=== PATIENT | female | born 1945 | race Caucasian/White ===

== ENCOUNTER → 2023-08-23 18:28 | Outpatient (REF) | payer OTHER, SELFPAY | LOC: PAVMRI 18:28 | PROVIDERS: ATTENDING PHYSICIAN Psychiatry & Neurology Neurology; FAMILY PHYSICIAN Internal Medicine | DX: M54.12 Radiculopathy, cervical region (principal); M54.2 Cervicalgia | CPT/HCPCS: 72141 ==

== ENCOUNTER 2024-01-05 15:21 | Emergency (ER) | payer OTHER, SELFPAY ==
[2024-01-05 15:31] VITALS: BP 164/86
[2024-01-05 16:14] LABS: Urine Albumin Negative (Neg - Trace); Urine Bilirubin Negative (Negative); Urine Character Clear (Clear); Urine Color Yellow; Urine Glucose Negative (Negative); Urine Ketone Negative (Negative); Urine Leukocyte Negative (Negative); Urine Nitrite Negative (Negative); Urine Occult Blood Negative (Negative); Urine Specific Gravity 1.005 (<1.030); Urine Urobilinogen Negative (Neg - 1+)
--- NOTE | 2024-01-05 17:13 | ED.GENMED ---
History of Present Illness
General
Chief Complaint: Malaise
Source: patient
Exam Limitations: none
Time Seen by Provider: 01/05/24 16:37
Nursing documentation reviewed up to this point in time: agreed with
History of Present Illness
History of Present Illness:
78-year-old female presents emergency room due to dizziness for the past 2 weeks. She was having dental problems, and was placed on azithromycin and Decadron by her guideman. She then developed a urinary tract infection and was treated with
Cipro. After being on the Decadron, she did have elevated white blood cells on her outpatient labs per the patient. She ambulates with a cane. [place] the beach [place] and was concerned prior to going.
Past History
Past History
ED Past Medical History: HTN, Hypercholesterolemia, Other (Arthritis , headaches, difficulty with balance, neck pain) and Other (Diverticulosis, proctitis, internal hemorrhoids); Negative CAD, Cancer or COPD
ED Past Surgical History: Gynecological (D&C ) and Other (Left eyelid surgery)
Patient has exhibited threatening behavior?: No
PSI?: No
Social History
Tobacco: Non-smoker
Alcohol: None
Drug: None
Personal:
Living: alone
Employment: Retired
Family History
Family History: Other (Uncontributory)
Review of Systems
Review of Systems
Allergies reviewed?: Yes
All Other Systems: Not applicable
Constitutional: Reports no symptoms
EENT: Reports no symptoms
Respiratory: Reports no symptoms
Cardiac: Reports no symptoms
ABD/GI: Reports no symptoms
: Reports no symptoms
Musculoskeletal: Reports no symptoms
Skin: Reports no symptoms
Neurological: Reports dizzy
Endocrine: Reports no symptoms
Hematologic/Lymphatic: Reports no symptoms
Psychiatric: Reports no symptoms
Phy Exam
Physical Exam
Physical Exam:
Physical Exam
General: no apparent distress, not acutely ill
Neck: supple. no meningeal signs. normal posterior pharynx
Heart: s1/s2 regular rate and rhythm, no murmur. equal radial
pulses.
HEENT: Pupils equal round reactive to light, EOMI
Lungs: no acute respiratory distress. clear bilaterally
Abdomen: normal bowel sounds. not tender. no CVAT
Neuro: alert and oriented. no focal neurological deficits cranial nerves II through XII intact
Skin: no rash
Psychiatric: well kept. interactive and cooperative
Extremities: no edema. no calf tenderness. negative homans. good distal pulses
Course
Orders/Labs/Results
Orders:
Orders
01/05/24 16:07
Urinalysis Reflex To Culture Urgent
Date Specimen was Collected: 01/05/24
Time Specimen was Collected: 15:34
01/05/24 17:06
Electrocardiogram (*1) Urgent
Reason for Study: Vertigo / Dizzy
CT Head W/o Iv Contrast Urgent
Comment:
Reason For Exam: dizziness 2 weeks
EKG- Treatment ONCE
01/05/24 17:15
Complete Blood Count/With Diff Urgent
Comprehensive Metabolic Panel Urgent
01/05/24 19:48
Ondansetron Orally Disint [Zofran Odt (Orally Disintegrating)] 4 mg .ROUTE .[facility]
01/05/24 19:49
Ondansetron Orally Disint [Zofran Odt (Orally Disintegrating)] 4 mg PO NOW STA
Abnormal Lab Results
01/05/24
17:15
RBC 4.01 L 10^6/uL
(4.20-5.40)
Hct 34.1 L %
(37.0-47.0)
Absolute Monos (auto) 0.7 H 10^3/uL
(0.1-0.6)
Sodium 131 L mmol/L
(135-145)
Creatinine 0.5 L mg/dL
(0.6-1.0)
01/05/24 17:15
01/05/24 17:15
Vital Signs
Initial and Last Documented VS:
Initial Vital Signs
Temp Pulse Resp BP Pulse Ox
97.9 F 87 16 164/86 95
01/05/24 15:31 01/05/24 15:31 01/05/24 15:31 01/05/24 15:31 01/05/24 15:31
Last Documented Vital Signs
Temp Pulse Resp BP Pulse Ox
97.8 F 78 16 157/82 100
01/05/24 19:37 01/05/24 19:37 01/05/24 19:37 01/05/24 19:37 01/05/24 19:37
MDM/Problems Addressed
Differential Diagnosis Includes:
CVA, vertigo, dysrhythmia
MDM/Problems Addressed:
78-year-old female with dizziness, headache. Recent treatment for UTI with Cipro. Normal neurologic exam and normal head CT. Stable for discharge.
Chronic conditions affecting care: HTN and Other (Migraines)
Acute Exacerbation and/or Progression of Chronic Illness: HTN
*Radiology
Radiology exam reviewed: radiology read reviewed (CT head no acute findings)
*Pulse Oximetry
Patient hypoxic: no
*EKG
Interpreted by ED Provider?: Yes
EKG Intrepretation Date: 01/05/24
EKG Intrepretation Time: 17:16
Interpretation: normal
Comparison EKG: no comparison EKG present
Heart Rate: 70
Rate: normal
Rhythm: sinus
[place]: normal axis
Interval: normal interval
QRS Pattern: normal QRS
Ischemia: no ischemia
*Software Engineer Sales Interpretation
Rate: normal
Interpretation: normal
Heart Rate: 70
Rhythm: sinus
*Critical Care Note
Total Time (30-74mins, 75-104mins- exclusive of procedures): Not Applicable
Patient Management
Social determinants of health affecting care: Living situation
Escalation/DeEscalation of care consider admission/obs:
Admit not indicated
ED Attending Note
-
Portions of this chart may have been created with voice recognition software.� Occasional wrong word or��sound alike� substitutions may have occurred due to the inherent limitations of voice recognition software.
Discharge Plan
Departure
Patient Disposition: Home (Routine Discharge)
Date of Disposition: 01/05/24
Time of Disposition: 20:44
Patient with high blood pressure during this ER visit?: Yes
Condition: Good
Discharge Problem:
Dizziness
Instructions: Generalized Weakness (DC), BLOOD PRESSURE
Prescriptions:
No Action
famotidine 40 MG tablet
40 mg PO HS
gabapentin 100 MG capsule
100 mg PO HS
lisinopril 5 MG tablet
5 mg PO DAILY
cranberry extract
1 cap PO DAILY
lansoprazole 15 mg Capsule,Delayed Release(Dr/Ec)
15 mg PO DAILY
ascorbic acid (vitamin C) [Vitamin C] 1,000 mg Tablet
1,000 mg PO DAILY
cholecalciferol (vitamin D3) [Vitamin D3] 50 mcg (2,000 unit) Tablet
50 mcg PO DAILY
dicyclomine 20 mg tablet
20 mg PO QID PRN (Reason: abdominal pain) Qty: 20 0RF
Referrals:
Bailey Salmeron MD [Family Provider] - Call in 1-3 days for appt
Interventions
Interventions:
*Risk Screen - Suicide Last Done: 01/05/24 17:09
*General Assessment Last Done: 01/05/24 17:09
*Neglect/Abuse Screening Last Done: 01/05/24 17:09
ED- Fall Risk Assessment Last Done: 01/05/24 21:05
*ED COVID-19 Vaccine History Last Done: 01/05/24 17:09
*Nursing Disposition Last Done: 01/05/24 21:05
Discharge Date and Time
Discharge Date/Time: 01/05/24 21:06
Print Language: CUBAN
[2024-01-05 17:22] LABS: % Basophils 0.6 % (0-2); % Eosinophils 0.5 % (0-6); % Immature Granulocytes 0.2 % (0-0.5); % Monocytes 8.5 % (1.7-9.3); % Neutrophils 62.2 % (42.2-75.2); Absolute Basophils 0.1 10^3/uL (0-0.2); Absolute Lymphocytes 2.3 10^3/uL (1.2-3.4); Absolute Monocytes 0.7 10^3/uL (0.1-0.6); Absolute Neutrophils 5.1 10^3/uL (1.4-6.5); Hematocrit 34.1 % (37.0-47.0); Hemoglobin 12.2 g/dL (12.0-16.0); Mean Corp Hgb Conc. 35.8 g/dL (33.0-37.0); Mean Corpuscular Hgb 30.4 pg (27.0-31.0); Mean Platelet Volume 8.4 fL (7.4-10.4); Nucleated Red Blood Cells % 0 %; Platelet Count 356 10^3/uL (130-400); Red Blood Cell Count 4.01 10^6/uL (4.20-5.40); Red Cell Dist. Width 13.2 % (11.5-14.5); White Blood Cell Count 8.1 10^3/uL (4.8-10.8)
[2024-01-05 17:40] LABS: ALT (SGPT) 15 U/L (0-35); AST (SGOT) 26 U/L (14-36); Albumin 4.4 g/dl (3.5-5.0); Alkaline Phosphatase 80 U/L (38-126); Blood Urea Nitrogen 10 mg/dl (7-17); Calcium 9.5 mg/dl (8.4-10.2); Carbon Dioxide 24 mmol/L (22-30); Chloride 100 mmol/L (98-107); Glucose 79 mg/dl (70-99); Potassium 3.7 mmol/L (3.5-5.1); Sodium 131 mmol/L (135-145); Total Bilirubin 0.5 mg/dl (0.2-1.3); Total Protein 6.7 g/dl (6.3-8.2); eGFR > 60.00
[2024-01-05 19:37] VITALS: BP 157/82
[2024-01-05 19:42] VITALS: BMI 30.4
[2024-01-05] MEDS: ZOFRAN ODT (ORALLY DISINTEGRATING) 4 MG PO (19:49)
== END 2024-01-05 21:06 | disposition home or self-care (01) ==
LOC: EMR 15:21
PROVIDERS: Emergency Medicine; EMERGENCY PHYSICIAN Emergency Medicine; FAMILY PHYSICIAN Internal Medicine
DX: R42 Dizziness and giddiness (principal); N39.0 Urinary tract infection, site not specified; I10 Essential (primary) hypertension; E78.00 Pure hypercholesterolemia, unspecified; M19.90 Unspecified osteoarthritis, unspecified site; Z87.19 Personal history of other diseases of the digestive system; Z87.440 Personal history of urinary (tract) infections
CPT/HCPCS: 99284; 70450; 80053; 81003; 85025; 93005

== ENCOUNTER → 2024-05-13 10:38 | Outpatient (REF) | payer OTHER, SELFPAY | LOC: RAD 10:38 | PROVIDERS: ATTENDING PHYSICIAN Nurse Practitioner Adult Health | DX: M54.50 Low back pain, unspecified (principal); M53.3 Sacrococcygeal disorders, not elsewhere classified | CPT/HCPCS: 72110; 72220 ==

== ENCOUNTER → 2024-05-18 12:10 | Outpatient (REF) | payer OTHER, SELFPAY | LOC: HWRAD 12:10 | PROVIDERS: ATTENDING PHYSICIAN Nurse Practitioner Adult Health; FAMILY PHYSICIAN Internal Medicine | DX: R30.0 Dysuria (principal); R10.9 Unspecified abdominal pain; R93.89 Abnormal findings on diagnostic imaging of other specified body structures | CPT/HCPCS: 74176 ==

== ENCOUNTER → 2024-08-21 12:54 | Outpatient (REF) | payer OTHER, SELFPAY | LOC: RAD 12:54 | PROVIDERS: ATTENDING PHYSICIAN Nurse Practitioner Family | DX: U09.9 Post COVID-19 condition, unspecified (principal) | CPT/HCPCS: 71046 ==

== ENCOUNTER 2024-09-30 06:31 | Day surgery (SDC) | payer OTHER, SELFPAY | END 2024-09-30 12:49 | disposition home or self-care (01) | LOC: GI 06:31 | PROVIDERS: ATTENDING PHYSICIAN Internal Medicine; FAMILY PHYSICIAN Internal Medicine | DX: R10.12 Left upper quadrant pain (principal); J02.9 Acute pharyngitis, unspecified; K44.9 Diaphragmatic hernia without obstruction or gangrene; Q39.9 Congenital malformation of esophagus, unspecified; K22.89 Other specified disease of esophagus; R11.0 Nausea | CPT/HCPCS: 43239; 88305; 88342 ==

== ENCOUNTER → 2024-11-24 12:37 | Outpatient (REF) | payer OTHER, SELFPAY | LOC: HWRAD 12:37 | PROVIDERS: ATTENDING PHYSICIAN Nurse Practitioner Adult Health; FAMILY PHYSICIAN Internal Medicine | DX: G44.52 New daily persistent headache (NDPH) (principal); H53.9 Unspecified visual disturbance | CPT/HCPCS: 70450 ==

== ENCOUNTER 2024-11-30 08:00 | Inpatient (IN) | payer OTHER, SELFPAY ==
[2024-11-26] VITALS (7 sets, daily range): BP systolic 127–165; BP diastolic 53–91; BMI 30.8
[2024-11-26 17:38] LABS: Urine Character Clear (Clear)
[2024-11-26 17:48] LABS: Urine Red Blood Cell 0-2 /HPF (0-2)
[2024-11-26 17:48] LABS: Hematocrit 37.9 % (37.0-47.0); Hemoglobin 13.1 g/dL (12.0-16.0); Mean Corp Hgb Conc. 34.6 g/dL (33.0-37.0); Mean Corpuscular Volume 89.6 fL (81.0-99.0); Nucleated Red Blood Cells % 0 %; Platelet Count 412 10^3/uL (130-400); Red Cell Dist. Width 13.3 % (11.5-14.5)
[2024-11-26 18:10] LABS: ALT (SGPT) 15 U/L (0-35); AST (SGOT) 29 U/L (14-36); Albumin 4.6 g/dl (3.5-5.0); Alkaline Phosphatase 80 U/L (38-126); Blood Urea Nitrogen 16 mg/dl (7-17); Calcium 9.3 mg/dl (8.4-10.2); Carbon Dioxide 21 mmol/L (22-30); Chloride 104 mmol/L (98-107); Estimated Creatinine Clearance 68 ml/min; Glucose 87 mg/dl (70-99); Potassium 4.4 mmol/L (3.5-5.1); Sodium 134 mmol/L (135-145); Total Protein 7.2 g/dl (6.3-8.2); eGFR > 60.00
[2024-11-26] MEDS: NSS 500 IV (18:24)
[2024-11-26] MEDS: TORADOL 15 MG IV (18:26)
[2024-11-26] MEDS: BENADRYL 12.5 MG IV (18:27)
[2024-11-26] MEDS: REGLAN 10 MG IV (18:28)
[2024-11-26] MEDS: DECADRON 10 MG PO (22:34)
--- NOTE | 2024-11-26 22:47 | ED.GENMED ---
History of Present Illness
<Diego Lake MD - Last Filed: 11/27/24 17:01>
General
Chief Complaint: Headache
Source: patient
Exam Limitations: none
Time Seen by Provider: 11/26/24 17:34
Nursing documentation reviewed up to this point in time: agreed with
History of Present Illness
History of Present Illness:
Patient presents to ED secondary to 10-day history of persistent headache with nausea sensation. Patient has been evaluated by her primary care physician. An outpatient CT scan of the head along with blood work has been completed. Patient was
told that her CT scan was normal but that her sodium level was little bit low. As such, patient has been drinking Gatorade and IV liquid. Denies dizziness. Denies blurred vision. Denies loss of sensation or weakness.
Past History
<Diego Lake MD - Last Filed: 11/27/24 17:01>
Past History
ED Past Medical History: HTN, Hypercholesterolemia, Other (Arthritis , headaches, difficulty with balance, neck pain) and Other (Diverticulosis, proctitis, internal hemorrhoids); Negative CAD, Cancer or COPD
ED Past Surgical History: Gynecological (D&C ) and Other (Left eyelid surgery)
Patient has exhibited threatening behavior?: No
PSI?: No
Social History
Tobacco: Non-smoker
Alcohol: None
Drug: None
Personal:
Living: alone
Employment: Retired
Family History
Family History: Other (Uncontributory)
Review of Systems
<Diego Lake MD - Last Filed: 11/27/24 17:01>
Review of Systems
Allergies reviewed?: Yes
All Other Systems: ROS reviewed and negative except as documented in HPI and ROS
Constitutional: Reports no symptoms; Denies fever
Respiratory: Reports no symptoms
Cardiac: Reports no symptoms; Denies chest pain
ABD/GI: Reports nausea; Denies abdominal pain, vomiting or diarrhea
Musculoskeletal: Reports no symptoms; Denies neck pain or back pain
Skin: Reports no symptoms
Neurological: Reports headache; Denies dizzy
Phy Exam
<Diego Lake MD - Last Filed: 11/27/24 17:01>
Physical Exam
Physical Exam:
Physical Exam
General: mild distress, not acutely ill. afebrile
Head: nc/at. eomi
Neck: supple. normal range of motion.
Heart: s1/s2 regular rate and rhythm
Lungs: no acute respiratory distress. clear bilaterally
Abdomen: normal bowel sounds. not tender.
Neuro: alert and oriented x 3. no focal neurological deficits. normal speech
Skin: no rash
Psychiatric: well kept. interactive and cooperative
Extremities: no edema. no calf tenderness.
Course
<Diego Lake MD - Last Filed: 11/27/24 17:01>
Orders/Labs/Results
Orders:
Orders
11/26/24 17:18
Urinalysis Reflex To Culture Urgent
Date Specimen was Collected: 11/26/24
Time Specimen was Collected: 17:17
Urine Microscopic Reflex Cult Urgent
Urine Culture Urgent
JESUS Source: U
Specimen Description:
Date Specimen was Collected: 11/26/24
Time Specimen was Collected: 17:17
11/26/24 17:41
Complete Blood Count/With Diff Urgent
Comprehensive Metabolic Panel Urgent
Lyme Progressive Urgent
Comment: ADD ON
11/26/24 18:05
0.9% Sodium Chloride 500 ml [Nss] 500 ml IV BOLUS
Diphenhydramine [Benadryl] 12.5 mg IV NOW STA
Ketorolac [Toradol] 15 mg IV NOW STA
Metoclopramide [Reglan] 10 mg IV NOW STA
11/26/24 22:29
Dexamethasone Pf [Decadron] 10 mg PO NOW STA
11/26/24 22:49
Add On- LAB Urgent
Tests Added?: lyme progressive
11/27/24 00:05
Diphenhydramine [Benadryl] 12.5 mg IV NOW STA
Metoclopramide [Reglan] 5 mg IV NOW STA
11/27/24 02:54
EKG [Electrocardiogram (*1)] Urgent
Reason for Study: QTc Monitoring
11/27/24 02:55
Admit/Transfer Patient As Directed
Co-Sign Provider:
Level of Care: Observation services
Assign to:: Telemetry
Physician / Group: Zohaib
Diagnosis: Migraine
Reason for Telemetry: Arrhythmia
Date to Stop Telemetry: 11/30/24
Time to Stop Telemetry: 11:00
Code Status As Directed
Resuscitation Status: Full Code
PRN Pain Medication Management As Directed
May give lesser potent ordered pain med per pt: Yes
preference::
Protocol:: Medication orders for pain may be administered in a
manner that supports deferring to patient preference
when the pt is:
- Requesting an ordered lesser potent pain medication.
Least to most potent pain medications are defined
as: acetaminophen < NSAID < tramadol < opioids
(morphine, oxycodone, hydromorphone).
- Requesting a lesser dose of the same medication IF
ORDERED.
- Requesting a less intrusive route of administration
if both routes are prescribed by the provider (PO <
IV).
11/27/24 04:14
Acetaminophen [Tylenol] 650 mg PO Q4HPRN PRN
Diphenhydramine [Benadryl] 12.5 mg IV Q4HPRN PRN
Ketorolac [Toradol] 10 mg IV Q6HPRN PRN
Prochlorperazine [Compazine] 5 mg IV Q6HPRN PRN
07/04/25 04:14
Consult Notification Routine
Specialty to Notify: Neurology
Date consulting provider notified: 11/27/24
Time consulting provider notified: 08:21
Notified:: Provider
NEUROLOGY CONSULT Routine
Consulting Provider: Francisco J Henderson
Was physician already notified: No
Reason for consult: Intractable Headache
Activity As Directed
Activity Level: Ambulate
With Assistance
EKG with chest pain [ECG as needed] As Directed
ECG as needed for:: Chest Pain
I/O [Intake/ Output] As Directed
Frequency: Per unit guidelines
Pneumatic Compression Sleeves As Directed
Type: Knee high
Vital Signs As Directed
Frequency: Per unit guidelines
Weight As Directed
Frequency: Daily
Oxygen Therapy [O2 Therapy] [RESP] Routine
Titrate/Wean O2 to maintain O2 sat greater than (%): 94
DX Deep Vein Thrombosis Video Routine
11/27/24 06:00
EKG [Electrocardiogram (*1)] IN AM
Reason for Study: Chest Pain
Clear Liquid
At Your Request: Full Participation
11/27/24 08:00
Lisinopril [Zestril] 10 mg PO DAILY
Pantoprazole [Protonix] 40 mg PO BID
11/27/24 22:00
Atorvastatin [Lipitor] 10 mg PO HS
Gabapentin [Neurontin] 100 mg PO HS
11/30/24 11:00
DC Protocol for Telemetry ONCE
Abnormal Lab Results
11/26/24 11/26/24
17:18 17:41
Plt Count 412 H 10^3/uL
(130-400)
Absolute Monos (auto) 0.7 H 10^3/uL
(0.1-0.6)
Sodium 134 L mmol/L
(135-145)
Carbon Dioxide 21 L mmol/L
(22-30)
Leukocyte Esterase Rfl 2+ A
(Negative)
Urine Bacteria (Reflex) Few A
(Negative)
11/26/24 17:41
11/26/24 17:41
Vital Signs
Initial and Last Documented VS:
Initial Vital Signs
Temp Pulse Resp BP Pulse Ox
98.1 F 99 18 165/91 100
11/26/24 15:41 11/26/24 15:41 11/26/24 15:41 11/26/24 15:41 11/26/24 15:41
Last Documented Vital Signs
Temp Pulse Resp BP Pulse Ox
97.9 F 124 17 152/106 97
11/27/24 15:34 11/27/24 14:00 11/27/24 14:00 11/27/24 13:45 11/27/24 14:38
<Sulaiman Michelle, - Last Filed: 11/27/24 04:19>
Orders/Labs/Results
Orders:
Orders
11/26/24 17:18
Urinalysis Reflex To Culture Urgent
Date Specimen was Collected: 11/26/24
Time Specimen was Collected: 17:17
Urine Microscopic Reflex Cult Urgent
Urine Culture Urgent
JESUS Source: U
Specimen Description:
Date Specimen was Collected: 11/26/24
Time Specimen was Collected: 17:17
11/26/24 17:41
Complete Blood Count/With Diff Urgent
Comprehensive Metabolic Panel Urgent
Lyme Progressive Urgent
Comment: ADD ON
11/26/24 18:05
0.9% Sodium Chloride 500 ml [Nss] 500 ml IV BOLUS
Diphenhydramine [Benadryl] 12.5 mg IV NOW STA
Ketorolac [Toradol] 15 mg IV NOW STA
Metoclopramide [Reglan] 10 mg IV NOW STA
11/26/24 22:29
Dexamethasone Pf [Decadron] 10 mg PO NOW STA
11/26/24 22:49
Add On- LAB Urgent
Tests Added?: lyme progressive
11/27/24 00:05
Diphenhydramine [Benadryl] 12.5 mg IV NOW STA
Metoclopramide [Reglan] 5 mg IV NOW STA
11/27/24 02:54
EKG [Electrocardiogram (*1)] Urgent
Reason for Study: QTc Monitoring
11/27/24 02:55
Admit/Transfer Patient As Directed
Co-Sign Provider:
Level of Care: Observation services
Assign to:: Telemetry
Physician / Group: Zohaib
Diagnosis: Migraine
Reason for Telemetry: Arrhythmia
Date to Stop Telemetry: 11/30/24
Time to Stop Telemetry: 11:00
Code Status As Directed
Resuscitation Status: Full Code
PRN Pain Medication Management As Directed
May give lesser potent ordered pain med per pt: Yes
preference::
Protocol:: Medication orders for pain may be administered in a
manner that supports deferring to patient preference
when the pt is:
- Requesting an ordered lesser potent pain medication.
Least to most potent pain medications are defined
as: acetaminophen < NSAID < tramadol < opioids
(morphine, oxycodone, hydromorphone).
- Requesting a lesser dose of the same medication IF
ORDERED.
- Requesting a less intrusive route of administration
if both routes are prescribed by the provider (PO <
IV).
11/27/24 04:14
Acetaminophen [Tylenol] 650 mg PO Q4HPRN PRN
Diphenhydramine [Benadryl] 12.5 mg IV Q4HPRN PRN
Ketorolac [Toradol] 10 mg IV Q6HPRN PRN
Prochlorperazine [Compazine] 5 mg IV Q6HPRN PRN
11/27/24 04:14
Consult Notification Routine
Specialty to Notify: Neurology
Date consulting provider notified: 11/27/24
Time consulting provider notified: 08:21
Notified:: Provider
NEUROLOGY CONSULT Routine
Consulting Provider: Francisco J Henderson
Was physician already notified: No
Reason for consult: Intractable Headache
Activity As Directed
Activity Level: Ambulate
With Assistance
EKG with chest pain [ECG as needed] As Directed
ECG as needed for:: Chest Pain
I/O [Intake/ Output] As Directed
Frequency: Per unit guidelines
Pneumatic Compression Sleeves As Directed
Type: Knee high
Vital Signs As Directed
Frequency: Per unit guidelines
Weight As Directed
Frequency: Daily
Oxygen Therapy [O2 Therapy] [RESP] Routine
Titrate/Wean O2 to maintain O2 sat greater than (%): 94
DX Deep Vein Thrombosis Video Routine
11/27/24 06:00
EKG [Electrocardiogram (*1)] IN AM
Reason for Study: Chest Pain
Clear Liquid
At Your Request: Full Participation
11/27/24 08:00
Lisinopril [Zestril] 10 mg PO DAILY
Pantoprazole [Protonix] 40 mg PO BID
11/27/24 22:00
Atorvastatin [Lipitor] 10 mg PO HS
Gabapentin [Neurontin] 100 mg PO HS
11/30/24 11:00
DC Protocol for Telemetry ONCE
Abnormal Lab Results
11/26/24 11/26/24
17:18 17:41
Plt Count 412 H 10^3/uL
(130-400)
Absolute Monos (auto) 0.7 H 10^3/uL
(0.1-0.6)
Sodium 134 L mmol/L
(135-145)
Carbon Dioxide 21 L mmol/L
(22-30)
Leukocyte Esterase Rfl 2+ A
(Negative)
Urine Bacteria (Reflex) Few A
(Negative)
11/26/24 17:41
11/26/24 17:41
Vital Signs
Initial and Last Documented VS:
Initial Vital Signs
Temp Pulse Resp BP Pulse Ox
98.1 F 99 18 165/91 100
11/26/24 15:41 11/26/24 15:41 11/26/24 15:41 11/26/24 15:41 11/26/24 15:41
Last Documented Vital Signs
Temp Pulse Resp BP Pulse Ox
97.9 F 124 17 152/106 97
11/27/24 15:34 11/27/24 14:00 11/27/24 14:00 11/27/24 13:45 11/27/24 14:38
<Diego Lake MD - Last Filed: 11/27/24 17:01>
MDM/Problems Addressed
MDM/Problems Addressed:
CT head report from yesterday reviewed and discussed with patient. Blood work reveals improved sodium level. Patient otherwise remains afebrile, hemodynamically stable, and neurologically intact during observation. Patient reports mild
improvement in symptoms after treatment. As such, after discussion, patient would like to be discharged home with medication. Patient will follow-up PCP or return to ED with worsening symptoms. As such, patient will be given prescription for
Reglan to be taken as needed. In addition, prior to discharge, patient will be given 1 dose of Decadron as well.
<Diego Lake MD - Last Filed: 11/27/24 17:01>
*Pulse Oximetry
SaO2: 98
Oxygen Mode of Delivery: Room air
<Sulaiman Michelle DO - Last Filed: 11/27/24 04:19>
*Pulse Oximetry
Patient hypoxic: no
*Critical Care Note
Total Time (30-74mins, 75-104mins- exclusive of procedures): Not Applicable
<Sulaiman Michelle DO - Last Filed: 11/27/24 04:19>
Update Note
Update Note:
12:06 AM: Patient complaining of return of symptoms. She will be admitted for headache and nausea. Received Reglan and Benadryl as a repeat dose. Will continue to monitor. Patient to be admitted to the hospitalist service.
ED Attending Note
<Diego Lake MD - Last Filed: 11/27/24 17:01>
-
Portions of this chart may have been created with voice recognition software.� Occasional wrong word or��sound alike� substitutions may have occurred due to the inherent limitations of voice recognition software.
Discharge Plan
Departure
Patient Disposition: Admit
Date of Disposition: 11/26/24
Time of Disposition: 22:51
Admit to: Med/Surg
Presentation/result/management discussed w/ accepting MD/DO: Hospitalist
Patient with high blood pressure during this ER visit?: Yes
Condition: Good
Discharge Problem:
Headache
Interventions
Interventions:
*General Assessment Last Done: 11/26/24 17:45
*Neglect/Abuse Screening Last Done: 11/26/24 17:45
*ED- Fall Risk Assessment Last Done: 11/26/24 17:45
*Nursing Disposition Last Done: 11/27/24 03:59
ED- Neurological Assessment Last Done: 11/26/24 19:00
Discharge Date and Time
Discharge Date/Time: 11/27/24 04:01
[2024-11-27] VITALS (16 sets, daily range): BP systolic 59–158; BP diastolic 38–121; BMI 30.4; BMI 31.3
[2024-11-27] MEDS: BENADRYL 12.5 MG IV ×2 (00:26→04:46)
[2024-11-27] MEDS: REGLAN 5 MG IV (00:27)
--- NOTE | 2024-11-27 02:58 | HPS.HSE ---
Family Physician
-
Family Physician: Bailey Salemron
Chief Complaint
-
Headache / Nausea
History of Present Illness
Patient is an 79y F with PMH significant for GERD, hypertension and thyroid nodule who presents to ED complaining of headache and nausea. Patient states that she has had a R sided headache for the past 11 days. She complains of pain from the R
frontal to the R occipital area. Some neck discomfort as well. Headache veifi-jeh-aaua but has not resolved for any significant time in the past 11 days. Headache is accompanied by severe nausea - but she denies any emesis. No focal numbness,
tingling, weakness, vision changes, etc.
Patient reports prior history of migraines, but states that current symptoms are more severe.
Patient notes that she was treated with Cipro x 5 days for urinary symptoms / UTI - the headache was present both prior to and following completion of Cipro course.
She was seen by her PCP and evaluated as an outpatient including labs. CT head was unremarkable (11/24). Labs showed Na = 128 and patient states that she has been drinking Gatorade, etc to correct this. Na today is 134.
In the ED, patient continues with headache and nausea despite interventions.
Medical History
Past Medical History
Past Medical History: Reports Other
Additional Past Medical History:
GERD / Gastritis
Migraine Headaches
Hypertension
Chronic Hyponatremia
Diverticular Disease
Peripheral Neuropathy
Thyroid Nodule
Past Surgical History: Reports Other
Additional Past Surgical History:
Cataracts
D&C
Blepharoplasty
L KARUNA
Social History
Tobacco: Former Smoker
Alcohol: None
Drug: None
Family History
Family History: Not pertinent
Allergies / Home Medications
Allergies reflects when Allergies were last updated in [employer].
Home Medications with original date entered in [employer]
Allergy/Medication List:
Allergies
Allergy/AdvReac Type Severity Reaction Status Date / Time
Cephalosporins Allergy Nausea Verified 01/05/24 15:33
methylprednisolone (From Allergy facial Verified 01/05/24 15:33
Medrol) flushing
nitrofurantoin (From Allergy Hives/WELTS Verified 01/05/24 15:33
Macrobid)
oxycodone Allergy made her Verified 01/05/24 15:33
feel
lightheaded
penicillin G Allergy Rash, Verified 01/05/24 15:33
itching,
syncope
Penicillins Allergy Rash, Verified 01/05/24 15:33
itching,
syncope
Sulfa (Sulfonamide Allergy Burning Verified 01/05/24 15:33
Antibiotics) sensation,
flushing
sulfamethoxazole (From Allergy Burning Verified 01/05/24 15:33
Bactrim) sensation,
flushing
trimethoprim (From Bactrim) Allergy Burning Verified 01/05/24 15:33
sensation,
flushing
Home Medications
gabapentin 100 mg capsule 100 mg PO HS Pain 10/25/20
lisinopril 5 mg tablet 10 mg PO DAILY Blood Pressure 11/16/20
cranberry extract 1 cap PO DAILY Supplement 12/21/22
ascorbic acid (vitamin C) 1,000 mg tablet (Vitamin C) 1,000 mg PO DAILY 02/11/23
cholecalciferol (vitamin D3) 50 mcg (2,000 unit) tablet (Vitamin D3) 50 mcg PO DAILY 02/11/23
metoclopramide HCl 10 mg tablet (Reglan) 10 mg PO Q8HPRN PRN headache/nausea #10 tabs 11/26/24
omeprazole 40 mg capsule,delayed release 40 mg PO BID 11/26/24
atorvastatin 10 mg tablet 10 mg PO HS 11/27/24
Review of Systems
-
History Source: Patient
A 12 point ROS was completed and negative except as noted: Yes
Constitutional: Reports Fatigue; Denies Fever or Chills
EENT: Denies Sore Throat
Respiratory: Denies Cough or Trouble Breathing
Cardiac: Denies Chest Pain or Palpitations
Abdomen/GI: Reports Nausea; Denies Abdominal Pain, Vomiting or Diarrhea
: Denies Dysuria, Frequency or Flank Pain
Musculoskeletal: Denies Joint Pain or Edema
Neurological: Reports Headache; Denies Dizzy, Weakness or Numbness
Psych: Denies Depression or Anxiety
Physical Exam
Vital Signs
Vital Signs
Temp Pulse Resp BP Pulse Ox
98.1 F 67 16 132/67 98
11/26/24 15:41 11/27/24 02:00 11/27/24 02:00 11/27/24 02:00 11/27/24 02:00
Physical Exam
General: Other (79y F in mild distress due to headache / nausea.)
HEENT: Other (Dry MM)
Respiratory: Clear; No Wheezes, Rales or Rhonchi
Cardiac: S1/S2 and Regular Rhythm; No Murmur
GI: Soft, Non Distended, Normal Bowel Sounds and Other (Mild upper abdominal tenderness without rebound/ guarding.)
Musculoskeletal: No Clubbing, No Cyanosis and No Edema
Neuro: AO x 3 and Nonfocal/grossly intact
Laboratory Results
-
11/26/24 17:41
11/26/24 17:41
Laboratory Results
Total Bilirubin 0.6 mg/dl (0.2-1.3) 11/26/24 17:41
AST 29 U/L (14-36) 11/26/24 17:41
ALT 15 U/L (0-35) 11/26/24 17:41
Alkaline Phosphatase 80 U/L (38-126) 11/26/24 17:41
Impression/Plan
-
A/P: Patient is an 79y F with PMH significant for hypertension, migraines and GERD who presents to ED complaining of headache and nausea.
Intractable Headache and Nausea
Migraine Headaches
- Observe overnight for further evaluation and treatment.
- Continue supportive care / abortive efforts.
- CT head 11/24 was unremarkable.
- Neurology evaluation for additional recommendations / headache interventions.
- Follow for new / worsening symptoms.
GERD
- Recent endoscopy with significant gastritis / inflammation.
- Advised to begin BID omeprazole (which she states she has yet to start).
- BID PPI for now.
- Follow for improvement in nausea.
Benign Hypertension
- Stable. Continue lisinopril with holding parameters.
Peripheral Neuropathy
- Stable. Continue gabapentin.
DVT Prophylaxis: SCDs
Code Status: Full
[2024-11-27] MEDS: COMPAZINE 5 MG IV (04:46)
[2024-11-27] MEDS: ZESTRIL 10 MG PO (08:35)
[2024-11-27] MEDS: PROTONIX 40 MG PO (08:35)
[2024-11-27 12:42] LABS: Glucose - Point of Care 200 mg/dl (70-99)
--- NOTE | 2024-11-27 12:46 | W.PN.UPDATE ---
Update Note
Progress Note Update
I was performing occipital nerve block with bupivacaine and dexamethasone and epi, given her medrol allergy of facial flushing, hoping for less severe cross reactivity, and discussed with the patient
on the nerve block I administered 0.4 mg dexamethasone
immediately after procedure, patient said 'i feel lightheaded like I'm going to pass out help me back to bed' I do so, she does most of the work
as she lays down she says a couple times 'i can't speak' in a gradually softer voice
then I hear noisy breathing, and call Dr Arce at 12:30 asking him to come listen to her
patient started appearing lethargic,
suspecting an anaphylaxis reaction, I left room to tell RN to give benadryl an placed order for benadryl 50
then I hear someone say call leslie castle, I called Dr Arce to update him at 12:34 as i go back to the room
patient cyanotic, I feel no pulse, and chest compressions were began
down time 4 minutes
afterwards patient not waking up, intubated
to head CT and then ICU, [facility] EEG monitoring
--- NOTE | 2024-11-27 12:53 | W.PN.ANESINT ---
Anesthesia Intubation Note
- Intubation Note
Intubation Note:
Diagnosis: Cardiopulmonary Arrest
Blade: MAC 3
Tube Size: 7.0
Depth: 21
Side Taped: Right
Drugs Used: None
Grade View: I
EtCO2 Present: Yes
Atraumatic: Yes
Attempts: 1
Insertion Start and Stop Time: 1240pm/1241pm
SaO2 Pre: Unattainable
SaO2 Post: Unattainable
Glidescope Used: No
Other Airway Adjustments: None
Pre-Oxygenated: By Respiratory Therapist
Portable Chest X-Ray: Pending
RSI: Yes
Suctioned: No
Bilateral Breath Sounds Confirmed: Yes
Vent Settings:
Settings per ICU Attending Physician
--- NOTE | 2024-11-27 13:01 | CON.INTV ---
Consultation
Consultation Request
Date/Time Consultation Requested: 11/27/2024-12:30 PM
Date/Time Consultation Performed: 11/27/24-12:30 PM
Requesting Provider: hospitalist
Performing Provider: Dr. Oropeza
Reason for Consultation: status post COVID/ventilator/critical care management
Medical History
-
Chief Complaint: PEA arrest
History of Present Illness:
79-year-old former smoking female with a history of hypertension, chronic hyponatremia, diverticular disease, GERD, thyroid nodule and migraines who presented with headache and nausea. She stated that she had a headache for the last 11 days with
some neck discomfort-neurology saw patient and occipital injection to help with migraine was performed with dexamethasone (had Medrol allergy), benzocaine and epi-the patient complained of feeling lightheaded and was assisted into bed and then
became unconscious without complaints prior of chest pain but some mild shortness of breath-she subsequently had a PEA arrest with immediate CPR, 1 of epi with ROSC, good blood pressure 170/100, sinus tachycardia versus SVT but patient did not wake
up and intubated-clinical research spec consulted for ventilator/allergic reaction/PEA arrest consultation 11/27/24. The patient was unconscious at the time that I arrived at the beginning of the code. Review of systems was unobtainable. She was flaccid
during intubation with good blood pressure and pulse and neurological event was suspected. She was transported to CT and then ICU where she began with nonpurposeful movements for which Ativan was given and EEG was recommended. She had an EKG with
sinus tachycardia with significant ST segment elevation. Cardiology was urgently consulted.
Past Medical History
Past Medical History: None ( GERD. Migraine headaches. Hypertension. Chronic hyponatremia. Diverticular disease. Peripheral neuropathy. Thyroid nodule. Former smoker. Cataract. D&C. Blepharoplasty. Left total hip arthroplasty.)
Social History
Tobacco: Former Smoker
Alcohol: None
Occupational Exposures: No known asbestos exposure
Environmental Exposures: no known tuberculosis exposure
Family History
Family History: Reviewed & Not Pertinent
Allergies / Home Medications
Allergies
Allergy/AdvReac Type Severity Reaction Status Date / Time
Cephalosporins Allergy Nausea Verified 01/05/24 15:33
methylprednisolone (From Allergy facial Verified 01/05/24 15:33
Medrol) flushing
nitrofurantoin (From Allergy Hives/WELTS Verified 01/05/24 15:33
Macrobid)
oxycodone Allergy made her Verified 01/05/24 15:33
feel
lightheaded
penicillin G Allergy Rash, Verified 01/05/24 15:33
itching,
syncope
Penicillins Allergy Rash, Verified 01/05/24 15:33
itching,
syncope
Sulfa (Sulfonamide Allergy Burning Verified 01/05/24 15:33
Antibiotics) sensation,
flushing
sulfamethoxazole (From Allergy Burning Verified 01/05/24 15:33
Bactrim) sensation,
flushing
trimethoprim (From Bactrim) Allergy Burning Verified 01/05/24 15:33
sensation,
flushing
Home Medications
�Medication �Instructions �Recorded �Confirmed �Last Taken �Type
gabapentin 100 mg capsule 100 mg PO HS Pain 10/25/20 11/26/24 02/13/23 20:00 History
lisinopril 5 mg tablet 10 mg PO DAILY Blood Pressure 11/16/20 11/26/24 02/14/23 04:00 History
cranberry extract 1 cap PO DAILY Supplement 12/21/22 11/26/24 02/07/23 History
ascorbic acid (vitamin C) 1,000 mg 1,000 mg PO DAILY 02/11/23 11/26/24 02/07/23 History
tablet (Vitamin C)
cholecalciferol (vitamin D3) 50 50 mcg PO DAILY 02/11/23 11/26/24 02/07/23 History
mcg (2,000 unit) tablet (Vitamin
D3)
metoclopramide HCl 10 mg tablet 10 mg PO Q8HPRN PRN 11/26/24 Unknown Rx
(Reglan) headache/nausea #10 tabs
omeprazole 40 mg capsule,delayed 40 mg PO BID 11/26/24 11/27/24 Unknown History
release
atorvastatin 10 mg tablet 10 mg PO HS 11/27/24 11/27/24 Unknown History
Review of Systems
-
Unable to Obtain full review of systems at this time due to: Other ( per HPI)
Vitals / Labs / Diagnostic Testing
Vital Signs
Temp Pulse Resp BP Pulse Ox
98.1 F 98 18 153/84 96
11/27/24 11:05 11/27/24 11:05 11/27/24 11:05 11/27/24 11:05 11/27/24 11:05
Lab Data
11/26/24 17:41
11/26/24 17:41
Microbiology
11/26/24 17:18 Urine Urine Culture - Final
No Significant Growth
Diagnostic Testing:
Physical Exam
-
Exam:
well-nourished and well-developed in no apparent distress
HEENT-atraumatic, normocephalic
Neck-supple, no JVD, no bruit
Heart-regular rate and rhythm-no murmurs, rubs or gallops
Chest-clear to auscultation, no wheezes, crackles
Back-no tenderness
Abdomen-soft, nontender, nondistended, no hepatosplenomegaly
Extremities-no cyanosis, clubbing, edema and good peripheral pulses
Integument-intact, no rashes, lesions or ecchymosis
Neurologically not alert, not oriented and not moving extremities
Assessment
-
79-year-old former smoking female with a history of hypertension, chronic hyponatremia, diverticular disease, GERD, thyroid nodule and migraines who presented with headache and nausea. She stated that she had a headache for the last 11 days with
some neck discomfort-neurology saw patient and occipital injection to help with migraine was performed with dexamethasone (had Medrol allergy), benzocaine and epi-the patient complained of feeling lightheaded and was assisted into bed and then
became unconscious without complaints prior of chest pain but some mild shortness of breath-she subsequently had a PEA arrest with immediate CPR, 1 of epi with ROSC, good blood pressure 170/100, sinus tachycardia versus SVT but patient did not wake
up and intubated-clinical research spec consulted for ventilator/allergic reaction/PEA arrest consultation 11/27/24.
Intractable headaches and nausea
Migraine headaches
Status post occipital injection-injected with dexamethasone, bupivacaine and epi
Subsequent allergic reaction with PEA arrest
Allergic reaction to injection suspected
PEA arrest-max 2-4-minute downtime-immediate bystander witnessed, immediate CPR, 1 epi with rapid ROSC
Based on sequence of events primary neurologic event suspected-? CVA, seizure, etc.
Targeted temperature management considered, however, with very brief downtime and highly unlikely significant anoxic event we will hold off especially since seizures are suspected
Ventilator dependent respiratory failure during PEA arrest
Intubated 11/27/24
Extubated
Abnormal EKG-ST segment elevation
Leukocytosis
Mild ypjehx-ktdlisxbwd-ctvfroyltu 11.7
Mild hyponatremia
Hyperglycemia
Transaminitis
Conditions present prior to admission:
GERD.
Migraine headaches.
Hypertension.
Chronic hyponatremia.
Diverticular disease.
Peripheral neuropathy.
Thyroid nodule.
Former smoker.
Obesity
Cataract. D&C. Blepharoplasty. Left total hip arthroplasty.
Plan
Patient transferred to ICU intubated, unresponsive with possible seizures after potential allergic reaction to occipital injection
Patient intubated and mechanically ventilated
Ventilator settings reviewed
Check ABG
Adjust ventilator accordingly
Spontaneous breathing trial when patient awake
Gentle sedation
VAP prevention protocol
Neurochecks
Neurology following
CT head unrevealing
Cerebell will be initiated
EEG continuous
Possible allergic reaction-avoid steroids-known Medrol allergy and possible dexamethasone now as well
Antihistamines if needed
Pepcid if needed
Epinephrine if needed
Trend troponin
Check EKG-ST segment elevations improved
Cardiology evaluation-discussed with Dr. Montalvo
Eventual cardiac ischemia evaluation
Intravenous fluid bolus-LR
Norepinephrine initiated-attempt to wean
Monitor leukocytosis
Recent UTI
Follow-up LFTs
Monitor blood sugar
Insulin supplementation as needed
DVT prophylaxis
GI prophylaxis if hypotensive on the ventilator
Early nutrition
Early mobilization/bedside range of motion
Critical care statement: A total of 95 minutes of critical care time was provided for this patient today. This includes management of unstable vital signs, evaluation of the patient at bedside, reviewing the patient's pertinent medical records
including radiographs, assisting in code, ventilator management, shock management, seizure management, and review of microbiology, laboratory evaluations, and discussion with primary team, consultants, pharmacy, nutrition, physical therapy,
case management, charge nurse, critical care nursing, and respiratory therapy.
Diagnostic data:
Chest x-ray -endotracheal tube tip 3.7 cm above meggan, bilateral mid to lower lung parenchymal opacifications most likely atelectasis
CT head 11/24/2024-no acute intracranial abnormalities, unchanged mild cerebellar atrophy
CT head 11/27/24-no acute intracranial manage narrowings, unchanged mild cerebellar atrophy and chronic white matter disease
CT abdomen and pelvis 05/18/2024-no renal or ureteral calculus, diverticulosis, no bowel obstruction, lung bases are clear
Echocardiogram 06/21/2023-EF 55-60%, moderate mitral regurgitation, mild to moderate aortic regurgitation
Data Reviewed
-
EKG: Report reviewed by me
Radiology: Image personally visualized and interpreted and Report reviewed by me
CT Scan: Image personally visualized and interpreted and Report reviewed by me
Medical Tests (Nuc Med, Echo etc): Report reviewed by me
Labs: Labs reviewed by me
Old Records: Reviewed
Critical Care Time (in minutes): 95
[2024-11-27 13:15] LABS: INR 1.09; PT 14.4 Sec (11.4-14.6)
[2024-11-27 13:16] LABS: APTT 24.1 Sec (23.4-35.0)
--- NOTE | 2024-11-27 13:22 | PTCARENOTE ---
At [address] Henderson notifies this nurse that pt is having an anallergic reaction. Pt was given a medication by neurologist Dr Henderson at the bedside. Dr Henderson ordering STAT Benadryl. Pt was responsive at the time when Dr Henderson left the room to order
Benadryl. When this nurse entered the room pt is unresponsive, cyanotic, not breathing, no pulse. Code 9 was called. CPR started immediately. Dr Henderson and Dr Arce at the bedside. Epinephine given from the code cart. Code started at 1235. ROSC
achieved. Pt was taken to stat CT and then ICU. Pt belongings transferred to ICU.
[2024-11-27] MEDS: LEVOPHED 250 IV (13:27)
[2024-11-27] MEDS: ATIVAN 1 MG IV (13:30)
[2024-11-27 13:39] LABS: ALT (SGPT) 318 U/L (0-35); AST (SGOT) 389 U/L (14-36); Albumin 4.6 g/dl (3.5-5.0); Alkaline Phosphatase 68 U/L (38-126); Blood Urea Nitrogen 10 mg/dl (7-17); Calcium 9.4 mg/dl (8.4-10.2); Carbon Dioxide 20 mmol/L (22-30); Chloride 103 mmol/L (98-107); Estimated Creatinine Clearance 67 ml/min; Glucose 166 mg/dl (70-99); Potassium 4.0 mmol/L (3.5-5.1); Sodium 133 mmol/L (135-145); Total Protein 7.2 g/dl (6.3-8.2); eGFR > 60.00
[2024-11-27 13:42] LABS: B.E. -5.2 mmol/L; HCO3 17.1 mmol/L (21-28); O2 Saturation % 99.4 % (94-98); PCO2 24 mmHg (32-35); PO2 201 mmHg (83-108)
[2024-11-27 13:45] LABS: Hematocrit 33.1 % (37.0-47.0); Hemoglobin 11.7 g/dL (12.0-16.0); Mean Corp Hgb Conc. 35.3 g/dL (33.0-37.0); Mean Corpuscular Volume 87.6 fL (81.0-99.0); Platelet Count 375 10^3/uL (130-400); Red Cell Dist. Width 13.2 % (11.5-14.5)
--- NOTE | 2024-11-27 13:55 | CON.NEURO ---
Neuro Assessment/Plan
Assessment
79 year old woman with headache, occipital neuralgia
I performed OMT atlanto axial mobilization successfully and cervical mobilization without success; no immediate relief and we planned for right occipital nerve block and right c3 paraspinals trigger point inj
when I returned for the procedures patient reported partial headache relief
immediately after the occipital nerve block, patient reported lightheadedness and ultimately went into cardiac arrest as I documented in event note. on the nerve block I administered 4 cc of mixture ~0.20 mg bupivacaine.
Consultation
Order
Date of Consultation: 11/27/24
Requesting Provider: Kevin Arce
Reason for Consult: headache, neck pain
Subjective/Objective
Subjective Data
Date of Service: November 27, 2024
from h&p:
Patient is an 79y F with PMH significant for GERD, hypertension and thyroid nodule who presents to ED complaining of headache and nausea. Patient states that she has had a R sided headache for the past 11 days. She complains of pain from the R
frontal to the R occipital area. Some neck discomfort as well. Headache ojtfh-xvn-zezj but has not resolved for any significant time in the past 11 days. Headache is accompanied by severe nausea - but she denies any emesis. No focal numbness,
tingling, weakness, vision changes, etc.
Patient reports prior history of migraines, but states that current symptoms are more severe.
Patient notes that she was treated with Cipro x 5 days for urinary symptoms / UTI - the headache was present both prior to and following completion of Cipro course.
She was seen by her PCP and evaluated as an outpatient including labs. CT head was unremarkable (11/24). Labs showed Na = 128 and patient states that she has been drinking Gatorade, etc to correct this. Na today is 134.
In the ED, patient continues with headache and nausea despite interventions.
Objective Data
Vital Signs
Temp Pulse Resp BP Pulse Ox
36.0 C L 122 34 152/106 99
11/27/24 13:40 11/27/24 13:45 11/27/24 13:45 11/27/24 13:45 11/27/24 13:31
Lab Results
11/27/24 13:29
PT 14.4 Sec (11.4-14.6) 11/27/24 13:01
INR 1.09 11/27/24 13:01
APTT 24.1 Sec (23.4-35.0) 11/27/24 13:01
Sodium 133 mmol/L (135-145) L 11/27/24 13:01
Potassium 4.0 mmol/L (3.5-5.1) 11/27/24 13:01
BUN 10 mg/dl (7-17) 11/27/24 13:01
Glucose 166 mg/dl (70-99) H 11/27/24 13:01
Calcium 9.4 mg/dl (8.4-10.2) 11/27/24 13:01
Patient Allergies
Cephalosporins Allergy (Verified 01/05/24 15:33)
Nausea
methylprednisolone (From Medrol) Allergy (Verified 01/05/24 15:33)
facial flushing
nitrofurantoin (From Macrobid) Allergy (Verified 01/05/24 15:33)
Hives/WELTS
oxycodone Allergy (Verified 01/05/24 15:33)
made her feel lightheaded
penicillin G Allergy (Verified 01/05/24 15:33)
Rash, itching, syncope
Penicillins Allergy (Verified 01/05/24 15:33)
Rash, itching, syncope
Sulfa (Sulfonamide Antibiotics) Allergy (Verified 01/05/24 15:33)
Burning sensation, flushing
sulfamethoxazole (From Bactrim) Allergy (Verified 01/05/24 15:33)
Burning sensation, flushing
trimethoprim (From Bactrim) Allergy (Verified 01/05/24 15:33)
Burning sensation, flushing
Physical Exam
-
AAOx3, speech clear, language intact, VFF, EOMI
face symmetric
no pronator drift, full strength
cervical rotation decreased to the right
palpated right c3 sublux
Medications
-
Active Medications
Generic Name Dose Route Start Last Admin
Trade Name Freq PRN Reason Stop Dose Admin
Acetaminophen 650 mg 11/27/24 04:14
Acetaminophen 325 Mg Tablet PO 12/25/24 04:13
Q4HPRN PRN
Mild Pain / Temp > 101
Atorvastatin Calcium 10 mg 11/27/24 22:00
Atorvastatin (Lipitor) 10 Mg Tablet PO 12/25/24 21:59
HS MARCIN
Diphenhydramine HCl 12.5 mg 11/27/24 04:14 11/27/24 04:46
Diphenhydramine 50 Mg/Ml 1 Ml Vial IV 12/25/24 04:13 12.5 mg
Q4HPRN PRN Administration
Headache
Gabapentin 100 mg 11/27/24 22:00
Gabapentin 100 Mg Capsule PO 12/25/24 21:59
HS MARCIN
Norepinephrine Bitartrate 4 mg in 250 mls @ 0 mls/hr 11/27/24 13:15 11/27/24 13:27
Levophed IV 250 mls
PER PROTOCOL MARCIN Administration
Protocol
Per Protocol
Ketorolac Tromethamine 10 mg 11/27/24 04:14
Ketorolac 15 Mg/Ml Injection IV 12/02/24 04:13
Q6HPRN PRN
Moderate Pain / Headache
Lisinopril 10 mg 11/27/24 08:00 11/27/24 08:35
Lisinopril 10 Mg Tablet PO 12/25/24 07:59 10 mg
DAILY MARCIN Administration
Lorazepam 1 mg 11/27/24 13:41
Lorazepam 2 Mg/Ml Vial IV 12/25/24 13:40
Q4HPRN PRN
seizure
Pantoprazole Sodium 40 mg 11/27/24 08:00 11/27/24 08:35
Pantoprazole 40 Mg Delayed Release Tablet PO 12/25/24 07:59 40 mg
BID MARCIN Administration
Prochlorperazine Edisylate 5 mg 11/27/24 04:14 11/27/24 04:46
Prochlorperazine 10 Mg/2 Ml Vial IV 12/25/24 04:13 5 mg
Q6HPRN PRN Administration
Nausea
Sodium Chloride 0 flush 11/27/24 05:00
Sodium Chloride 0.9% (Flush) Syringe IV 12/25/24 04:59
PER PROTOCOL MARCIN
Sodium Chloride 0.5 ml 11/27/24 13:49
Nss (Pf) 10 Ml Vial For Ativan 1 Mg Dose IV 12/25/24 13:48
Q4HPRN PRN
IV LORAZEPAM DILUTION
Home Medications
�Medication �Instructions �Recorded
gabapentin 100 mg capsule 100 mg PO HS Pain 10/25/20
lisinopril 5 mg tablet 10 mg PO DAILY Blood Pressure 11/16/20
cranberry extract 1 cap PO DAILY Supplement 12/21/22
ascorbic acid (vitamin C) 1,000 mg 1,000 mg PO DAILY 02/11/23
tablet (Vitamin C)
cholecalciferol (vitamin D3) 50 50 mcg PO DAILY 02/11/23
mcg (2,000 unit) tablet (Vitamin
D3)
metoclopramide HCl 10 mg tablet 10 mg PO Q8HPRN PRN 11/26/24
(Reglan) headache/nausea #10 tabs
omeprazole 40 mg capsule,delayed 40 mg PO BID 11/26/24
release
atorvastatin 10 mg tablet 10 mg PO HS 11/27/24
--- NOTE | 2024-11-27 14:00 | CON.CAR ---
Consultation
Consultation Request
Date/Time Consultation Requested: November 27, 2024 1 PM
Date/Time Consultation Performed: November 27, 2024 1 pm
Requesting Provider: Hospitalist service
Performing Provider: Dr. Mango Montalvo
Reason for Consultation: Cardiopulmonary arrest
Medical History
-
Chief Complaint: Patient had documented cardiopulmonary arrest, resuscitated
History of Present Illness:
She presented to outside hospital on November 26, 2024 complaining of headache and nausea right sided headache for the past 10 or so days. Right frontal to right occipital. Some associated neck discomfort.
She was admitted for intractable headaches and nausea.
She was seen by neurology and was plan for occipital nerve block.
During this procedure she noted feeling lightheaded and she made herself back to the bed because she was concerned she was going to pass out. Then she reportedly said that she could not speak any gradually softer voice. This was approximately
12:30 PM. It then became apparent that she started appearing lethargic. It was noted that she rapidly became cyanotic. No pulses were felt. Chest compressions were begun. Code was called. She was given 1 mg of epinephrine. She was intubated.
There was return of spontaneous circulation noted to have occurred within 4 minutes.
Telemetry monitoring during this time showed sinus rhythm with PACs and sinus tachycardia. No ventricular arrhythmias. No significant pauses.
First ECG showed ST segment elevations in the anterior leads concerning for acute anterior wall ST segment elevation myocardial infarction.
Initially hypotensive requiring IV pressors which were quickly weaned down.
Urgent/emergent head CT was obtained this demonstrates no acute intracranial abnormality.
Repeat ECG shows complete resolution of ST segment elevation, the EKG is sinus rhythm and normal
She remains unresponsive in the ICU
There has been some evidence of what appears like posturing.
Code labs include hemoglobin and hematocrit of 11.7 and 33.1 with a white count of 11.7, sodium 133, potassium 4, carbon dioxide 20, creatinine 0.5, AST 389 and ALT 318 with alkaline phosphatase of 68. Shortly thereafter lactic acid was obtained
which is 2.9
Past medical history:
Atypical migraines
Dizziness
Moderate mitral digitation
Dyspnea on exertion
Essential hypertension
Dyslipidemia
Peripheral polyneuropathy
Gastroesophageal reflux
Chronic hyponatremia
Social History
Tobacco: Other (Unable to obtain social history)
Family History
Family History: Other (Unable to obtain family history)
Allergies / Home Medications
Allergy/AdvReac Type Severity Reaction Status Date / Time
Cephalosporins Allergy Nausea Verified 01/05/24 15:33
methylprednisolone (From Allergy facial Verified 01/05/24 15:33
Medrol) flushing
nitrofurantoin (From Allergy Hives/WELTS Verified 01/05/24 15:33
Macrobid)
oxycodone Allergy made her Verified 01/05/24 15:33
feel
lightheaded
penicillin G Allergy Rash, Verified 01/05/24 15:33
itching,
syncope
Penicillins Allergy Rash, Verified 01/05/24 15:33
itching,
syncope
Sulfa (Sulfonamide Allergy Burning Verified 01/05/24 15:33
Antibiotics) sensation,
flushing
sulfamethoxazole (From Allergy Burning Verified 01/05/24 15:33
Bactrim) sensation,
flushing
trimethoprim (From Bactrim) Allergy Burning Verified 01/05/24 15:33
sensation,
flushing
�Medication �Instructions �Recorded �Confirmed �Type
gabapentin 100 mg capsule 100 mg PO HS Pain 10/25/20 11/26/24 History
lisinopril 5 mg tablet 10 mg PO DAILY Blood Pressure 11/16/20 11/26/24 History
cranberry extract 1 cap PO DAILY Supplement 12/21/22 11/26/24 History
ascorbic acid (vitamin C) 1,000 mg 1,000 mg PO DAILY 02/11/23 11/26/24 History
tablet (Vitamin C)
cholecalciferol (vitamin D3) 50 50 mcg PO DAILY 02/11/23 11/26/24 History
mcg (2,000 unit) tablet (Vitamin
D3)
metoclopramide HCl 10 mg tablet 10 mg PO Q8HPRN PRN 11/26/24 Rx
(Reglan) headache/nausea #10 tabs
omeprazole 40 mg capsule,delayed 40 mg PO BID 11/26/24 11/27/24 History
release
atorvastatin 10 mg tablet 10 mg PO HS 11/27/24 11/27/24 History
Review of Systems
-
Unable to obtain full review of systems at this time due to: Patient Intubation (And unresponsive, unable to obtain)
Physical Exam
Vital Signs
Temp Pulse Resp BP Pulse Ox
96.8 F L 122 34 152/106 99
11/27/24 13:40 11/27/24 13:45 11/27/24 13:45 11/27/24 13:45 11/27/24 13:31
Lab Results
11/27/24 13:29
Physical Exam
General: Other (She is intubated, not sedated and demonstrating posturing type upper extremity and lower extremity movements.)
HEENT: Normocephalic, Anicteric, Moist Mucous Membranes and Other (Intubated on vent)
Respiratory: Other (Coarse breath sounds anteriorly)
Cardiac: Regular Rhythm (Regular rate and rhythm normal S1 and S2, no S3 no S4 grade 1/6 apical systolic murmur no rubs.)
Breast: Deferred by me
GI: Soft and Non Distended
Rectal: Deferred by Provider
Musculoskeletal: Edema (There is +1 bilateral pretibial edema)
Neuro: Other (Not responsive, posturing type movements noted.)
Impression / Plan
-
Impression:
Cardiopulmonary arrest
Unclear etiology, potentially neurologically mediated
No malignant arrhythmias or significant pauses noted on telemetry while the event happened
Initially ECG demonstrated ST segment elevations in the anterior leads which subsequently resolved, possibly vasospastic
Remained unresponsive
Pressors being weaned off
Head CT unrevealing
Bedside EEG is pending
Atypical migraines
Dizziness
Moderate mitral digitation
Dyspnea on exertion
Essential hypertension
Dyslipidemia
Peripheral polyneuropathy
Gastroesophageal reflux
Chronic hyponatremia
Echocardiogram June 21, 2023 finds normal left ventricular systolic function ejection fraction of 55%, moderate mitral digitation, mild to moderate aortic insufficiency, mild tricuspid insufficiency.
Recommendations:
From a cardiac standpoint no specific recommendations at this time. It appears as though her hypotension was transient, now resolved. The ST segment elevation seen on ECG has also resolved and it is possible she could have had vasospastic coronary
reaction.
Troponin is pending although there is complete resolution of ECG changes.
Continue supportive care
No specific cardiac recommendations at this point but we will continue to follow along with you.
Discussed with critical care team as well as hospitalist service.
Critical care time 35 minutes
Data Reviewed
-
EKG: Tracing Personally Visualized and interpreted
Radiology: Report Reviewed by me
CT Scan: Report Reviewed by me
Medical Tests (Nuc Med, Echo etc): Report Reviewed by me
Labs: Labs Reviewed by me and Discussed with Physician
Old Records: Reviewed
[2024-11-27 14:06] LABS: ALT (SGPT) 391 U/L (0-35); AST (SGOT) 472 U/L (14-36); Albumin 3.8 g/dl (3.5-5.0); Alkaline Phosphatase 77 U/L (38-126); Blood Urea Nitrogen 10 mg/dl (7-17); Calcium 8.9 mg/dl (8.4-10.2); Carbon Dioxide 16 mmol/L (22-30); Chloride 108 mmol/L (98-107); Estimated Creatinine Clearance 68 ml/min; Glucose 159 mg/dl (70-99); Magnesium 1.8 mg/dl (1.6-2.3); Potassium 4.1 mmol/L (3.5-5.1); Sodium 131 mmol/L (135-145); Total Protein 6.1 g/dl (6.3-8.2); eGFR > 60.00
[2024-11-27] MEDS: DIPRIVAN 100 IV ×2 (14:10→18:21)
[2024-11-27] MEDS: LR 500 IV (14:13)
[2024-11-27 14:18] LABS: Troponin I < 0.012 ng/ml
--- NOTE | 2024-11-27 14:30 | PTCARENOTE ---
Received pt at code 9 on 4th floor. After ROSC, pt intubated by anesthesia. EKG done. pt unresponsive and pupils noted as 4mm and irregular shaped. CT head done. While down at CT, after scan complete, BP dropped to 50s/30s. IVF bolus infusing.
Pt also began seizure like activity while en route to ICU. Initially only appeared to be moving right side. Pupils uneven. right 4mm, left 2mm. When arrived in unit, MD called to beside, levophed started. 1 mg IV Ativan given per order. 500ml
LR bolus infusing per order. Levophed weaned off. Labs sent. Ceribell applied. 0% seizure burden. Pt continues with nonpurposeful movement. Coughing and fighting ventilator. Propofol started. Pupils equal and reactive.
--- NOTE | 2024-11-27 14:58 | W.PN.UPDATE ---
Update Note
Progress Note Update
Reevaluated patient at bedside-continues to have nonpurposeful agitated like movements despite propofol 50
Updated son at length for over 15 minutes in regards to events that occurred, potential etiologies, prognosis, and current treatment plan which includes ruling out seizures, continue mechanical ventilation, ruling out cardiac ischemia, supportive
care
Unclear what kind of oxycodone allergy she has but she has taken Percocet without issues in the past
Nursing asking for additional sedatives and fentanyl will be tried while she is intubated-potential cross-reactivity as it is an opioid for an allergic reaction was reviewed with the son
[2024-11-27 15:30] LABS: Triglycerides 151 mg/dl (10-149)
--- NOTE | 2024-11-27 15:33 | W.PN.HOSP.TC ---
Today's Communication/Plan
-
EEG
sedation
monitor hemodynamics, IVF, wean norepi as tolerated; MAP Goal >65
Neuro, Project Controller recs
Monitor LFTs
Trend Lactate
ECHO
Trops
HSQ
Assessment / Plan
Assessment / Plan
General: Other (79y F in on mechanical ventilation.)
HEENT: Other (Dry MM)
Respiratory: Clear; No Wheezes, Rales or Rhonchi
Cardiac: S1/S2 and Regular Rhythm; No Murmur
GI: Soft, Non Distended, Normal Bowel Sounds and Other (Mild upper abdominal tenderness without rebound/ guarding.)
Musculoskeletal: No Clubbing, No Cyanosis and No Edema
Neuro: AO x 3 and Nonfocal/grossly intact
A/P: Patient is an 79y F with PMH significant for hypertension, migraines and GERD who presents to ED complaining of headache and nausea.
?PEA Arrest
VDRF
-Questionable PEA arrest after Trigeminal Block -Status post occipital injection-injected with dexamethasone, bupivacaine and epi
- maintained rhythm on tele; required 1 dose epi
-Max 2-4 min total down time and resuscitation prior to ROSC
-?Possible Drug/ Allergic reaction
- Intubated 7/4; On mechanical ventilation, wean as tolerated
-CT head unremarkable
-EKG with possible STEMI although repeat EKG normalized - suspect coronary spasm
-Cards, Project Controller consulted
-Fentanyl ideal for monitoring for seizures
-EEG as per Neuro
-F/u Neuro recs
-Due to rapid improvement, ROSC and unlikely anoxic event - will hold on TTM, especially with seizures as higher dx diagnosis
-Neuro checks
Abnormal EKG findings
-ST segment elevation - resolved on repeat EKG
-cards consulted
-Suspected Coronary vasospasms
-Eventual ischemic work up
-ECHO
-F/u Trops
Intractable Headache and Nausea
Migraine Headaches
- Status post occipital injection-injected with dexamethasone, bupivacaine and epi
-monitor once extubated
Hypotension
Elevated Lactate
-wean norepinephrine
- at this time sepsis appears unlikely although monitor hemodynamics, wbc, fever curve for initation of abx; low threshold
-IVF PRN
-stop ACEI
Transaminitis
-may be related to PEA arrest
-monitor
-hold statin
Hyponatremia
-monitor
GERD
- Recent endoscopy with significant gastritis / inflammation.
- Advised to begin BID omeprazole (which she states she has yet to start).
- BID PPI for now.
- Follow for improvement in nausea.
Benign Hypertension
- stop bp meds with norepi
Peripheral Neuropathy
- Stable. Continue gabapentin.
DVT Prophylaxis: HSQ
Code Status: Full
Anticipated Discharge: > 48 hours
Subjective/Interval History
-
Date of Service: November 27, 2024
Patient coded, ?PEA arrest although never lost rhythmon Tele during trigmeninal block; Patient regained ROSC after 4 minutes, 1 dose epi; Intubated, and requiring low dose norepi
Objective Data
-
Labs:
Laboratory Results
11/27/24 11/27/24
13:01 13:29
WBC 11.7 H
Hgb 11.7 L
Hct 33.1 L
Plt Count 375
PT 14.4
INR 1.09
APTT 24.1
HCO3 17.1 L
Sodium 133 L 131 L
Potassium 4.0 4.1
Chloride 103 108 H
Carbon Dioxide 20 L 16 L
BUN 10 10
Creatinine 0.5 L 0.5 L
Glucose 166 H 159 H
Calcium 9.4 8.9
Total Bilirubin 0.8 0.7
AST 389 H 472 H
ALT 318 H 391 H
Alkaline Phosphatase 68 77
Vital Signs:
Vital Signs
Temp Pulse Resp BP Pulse Ox
96.8 F L 124 17 152/106 97
11/27/24 13:40 11/27/24 14:00 11/27/24 14:00 11/27/24 13:45 11/27/24 14:38
I&O
11/26/24 11/27/24 11/28/24
06:59 06:59 06:59
Intake Total 514 / 514
Output Total 385 / 385
Balance 129 / 129
Review of Systems
-
History Source: Patient
All other systems: Not reviewed unless documented
Data Reviewed
-
Diagnostic Radiology: Report Reviewed by me
CT Scan: Report Reviewed by me
Labs: Labs Reviewed by me
[2024-11-27] MEDS: SUBLIMAZE 50 MCG IV ×3 (16:55→23:50)
[2024-11-27] MEDS: HEPARIN 5000 UNITS SC ×2 (17:29→23:49)
[2024-11-27 19:02] LABS: Troponin I 1.810 ng/ml
--- NOTE | 2024-11-27 20:46 | PTCARENOTE ---
Handoff report received from off going RN. Dual RN bedside gtt reconciliation/ pt handoff completed. Patient received in bed on mechanical ventilation, and on propofol gtt at 35 mcg/kg/min (15.8 ml/hr). Propofol gtt placed on hold for assessment.
Patient is restless in bed. Opens her eyes to verbal commands. Pupils are + 4 on the right eye and + 3 on the left eye. reactive to light. Patient is tracking. Bilateral hand grasps are weak. Pt's able to wiggle her toes and follow simple commands.
Pt blinked when asked if she had pain. Pain management and plan of care for the shift reviewed with the patient and her son, Eran. Sinus tachy on the monitor with HR 130s, RR 25 and biting the vent tubing. Propofol restarted. Edema to bilateral legs
but not feet. Rhonchi with lung sounds. SpO2 at 99% on mechanical ventilation setting AC 12/450/+5/40%. Suctioned patient for moderate amount of clear secretions. Abdomen is round with + BS. OGT to LIWS and draining small amount of yellow output.
Temp sensing carvajal catheter is draining scant amount of cj UOP. X-ray ordered for OGT placement. PRN fentanyl administered. Bilateral wrist restraints are in use. Pt's family remains at the bedside.
--- NOTE | 2024-11-27 21:19 | W.PN.UPDATE ---
Update Note
Progress Note Update
Dr. Painter advised to add ASA 324mg PO x1 and then 81mg daily. Orders placed and RN updated.
[2024-11-27] MEDS: LOW STRENGTH ASPIRIN 324 MG TUBE (21:55)
[2024-11-27] MEDS: NEURONTIN 100 MG PO (21:55)
[2024-11-27] MEDS: PROTONIX PO (21:56)
--- NOTE | 2024-11-27 22:00 | PTCARENOTE ---
~2135-:50- X ray called for Ogt placement. X-ray forklift technician at the bedside.
[id number]: BLADE OPERATOR made aware. okay to use OGT. Placement verified via auscultation. Scheduled medications administered.
[2024-11-27] MEDS: NSS 1000 IV ×2 (22:20→23:28)
--- NOTE | 2024-11-27 23:14 | PTCARENOTE ---
Patient's left forearm IV is infiltrated. +1 edema. Right wrist 22 g flushes well but the patient grimaces with pain. Attempted x2 without success. VAT team paged and made aware.
[2024-11-27 23:36] LABS: Hematocrit 31.9 % (37.0-47.0); Hemoglobin 11.3 g/dL (12.0-16.0)
[2024-11-27 23:55] LABS: Blood Urea Nitrogen 10 mg/dl (7-17); Calcium 8.6 mg/dl (8.4-10.2); Carbon Dioxide 20 mmol/L (22-30); Chloride 105 mmol/L (98-107); Estimated Creatinine Clearance 68 ml/min; Glucose 125 mg/dl (70-99); Potassium 3.8 mmol/L (3.5-5.1); Sodium 132 mmol/L (135-145); eGFR > 60.00
[2024-11-28] VITALS (29 sets, daily range): BP systolic 90–145; BP diastolic 49–91; BMI 30.7
[2024-11-28] MEDS: DIPRIVAN 100 IV ×3 (00:45→09:53)
--- NOTE | 2024-11-28 00:50 | PTCARENOTE ---
Patient reassessed. continuous to follow simple commands. Sinus rhythm on the monitor. PRN fentanyl administered for pain. Patient cleansed and full linen change completed. Normal saline 1 L bolus administered for low uop. NSS at 80 ml/hr ordered.
[2024-11-28 01:48] LABS: Troponin I 3.640 ng/ml
[2024-11-28 03:41] LABS: B.E. -2.9 mmol/L; HCO3 20.4 mmol/L (21-28); O2 Saturation % 99.1 % (94-98); PCO2 30 mmHg (32-35); PO2 150 mmHg (83-108)
[2024-11-28 03:54] LABS: ALT (SGPT) 198 U/L (0-35); AST (SGOT) 162 U/L (14-36); Albumin 2.0 g/dl (3.5-5.0); Alkaline Phosphatase 27 U/L (38-126); Blood Urea Nitrogen 6 mg/dl (7-17); Calcium 5.2 mg/dl (8.4-10.2); Carbon Dioxide 11 mmol/L (22-30); Chloride 113 mmol/L (98-107); Estimated Creatinine Clearance 68 ml/min; Glucose 79 mg/dl (70-99); Magnesium 1.1 mg/dl (1.6-2.3); Potassium 2.9 mmol/L (3.5-5.1); Sodium 129 mmol/L (135-145); Total Protein 4.1 g/dl (6.3-8.2); eGFR > 60.00
[2024-11-28] MEDS: KCL ELIXIR 40 MEQ TUBE (04:23)
[2024-11-28] MEDS: KCL 270 MEQ IV (04:28)
[2024-11-28] MEDS: SODIUM BICARBONATE 1150 MEQ IV ×2 (04:36→11:48)
[2024-11-28] MEDS: MAGNESIUM SULFATE 50 IV (04:38)
[2024-11-28 05:04] LABS: Hematocrit 24.4 % (37.0-47.0); Hemoglobin 8.9 g/dL (12.0-16.0); Mean Corp Hgb Conc. 36.5 g/dL (33.0-37.0); Mean Corpuscular Volume 94.2 fL (81.0-99.0); Platelet Count 243 10^3/uL (130-400); Red Cell Dist. Width 13.3 % (11.5-14.5)
[2024-11-28] MEDS: SUBLIMAZE 50 MCG IV (05:05)
[2024-11-28] MEDS: CALCIUM GLUCONATE 290 MG IV (05:09)
--- NOTE | 2024-11-28 05:28 | PTCARENOTE ---
Patient reassessed. Lab results related to the CUFFING MACHINE OPERATOR. Potassium chloride 40 meq rider ordered for potassium 2.9, calcium gluconate 4 grams for Ca 5.2, mag sulfate 32 grams for Mg 1.1, Bicarb gtt for CO2 11. Propofol placed on hold to assess the
patient's neuro status. Patient continues to follow. simple commands. PRN fentanyl administered for pain.
--- NOTE | 2024-11-28 07:00 | PTCARENOTE ---
Received patient from overnight babysitter. patient is intubated/sedated. She is having some movement of extremities. pupils are equal, sluggish. Patient has #7 ETT at 24cm at lip. AC 12/400/5/40%. Oxygen saturation is 100%. she is in sinus rhythm.
SCDs on lower extremities. Patient is NPO. Has NG tube to low intermittent wall suction. Patient has carvajal catheter, draining yellow urine. Skin is intact. Call placed to IV team for PICC line and morning labs. will review orders, son present
at bedside.
[2024-11-28] MEDS: HEPARIN 5000 UNITS SC ×3 (07:28→22:25)
[2024-11-28] MEDS: NSS (PRESERVATIVE FREE) 10 ML IV ×2 (07:29→20:12)
[2024-11-28] MEDS: MIRALAX TUBE (07:29)
[2024-11-28] MEDS: PROTONIX IV 40 MG IV ×2 (07:29→20:12)
[2024-11-28] MEDS: LOW STRENGTH ASPIRIN 81 MG TUBE (07:29)
--- NOTE | 2024-11-28 07:50 | W.PN.INTV ---
Today's Communication / Plan
Recommendations
Continuous EEG
Brain MRI
Adjust ventilator
Trend troponin
Assessment
-
79-year-old former smoking female with a history of hypertension, chronic hyponatremia, diverticular disease, GERD, thyroid nodule and migraines who presented with headache and nausea. She stated that she had a headache for the last 11 days with
some neck discomfort-neurology saw patient and occipital injection to help with migraine was performed with dexamethasone (had Medrol allergy), benzocaine and epi-the patient complained of feeling lightheaded and was assisted into bed and then
became unconscious without complaints prior of chest pain but some mild shortness of breath-she subsequently had a PEA arrest with immediate CPR, 1 of epi with ROSC, good blood pressure 170/100, sinus tachycardia versus SVT but patient did not wake
up and intubated-surgery tech consulted for ventilator/allergic reaction/PEA arrest consultation 11/27/24.
Intractable headaches and nausea
Migraine headaches
Status post occipital injection-injected with dexamethasone, bupivacaine and epi
Subsequent PEA arrest-etiology unclear
Allergic reaction to injection suspected
PEA arrest-max 2-4-minute downtime-immediate bystander witnessed, immediate CPR, 1 epi with rapid ROSC
Based on sequence of events primary neurologic event suspected-? CVA, seizure, etc.
Targeted temperature management considered, however, with very brief downtime and highly unlikely significant anoxic event we will hold off especially since seizures are on the differential
Ventilator dependent respiratory failure during PEA arrest
Intubated 11/27/24
Extubated
Abnormal EKG-ST segment elevation
Leukocytosis
Mild nijucx-mcgkzixjyr-gfpntqmoxh 11.7
Mild hyponatremia
Hyperglycemia
Transaminitis
Conditions present prior to admission:
GERD.
Migraine headaches.
Hypertension.
Chronic hyponatremia.
Diverticular disease.
Peripheral neuropathy.
Thyroid nodule.
Former smoker.
Obesity
Cataract. D&C. Blepharoplasty. Left total hip arthroplasty.
Plan
Patient critically ill sedated on the ventilator without significant improvement from a neurologic perspective
Ventilator settings reviewed
ABG reviewed
Decrease minute ventilation
Follow ABG
Spontaneous breathing trial when patient awake
Gentle sedation-propofol and fentanyl for now
VAP prevention protocol
Neurochecks
Neurology following-correspondence reviewed
CT head unrevealing
Check brain MRI
Cerebell initiated and converted to continuous EEG
EEG continuous
Possible allergic reaction-avoid steroids-known Medrol allergy and possible dexamethasone now as well-overall not convinced this was an allergic reaction to the injection
Antihistamines if needed
Pepcid if needed
Epinephrine if needed-try to avoid with ischemic changes on EKG when heart rate was in the 160s
Trend troponin
Check EKG-ST segment elevations improved
Cardiology evaluation-discussed with Dr. Montalvo on 11/27/[address] Worley on 11/28/2024
Aspirin added to regiment
Eventual cardiac ischemia evaluation
Decrease IV fluids
Norepinephrine wean
Monitor leukocytosis
Recent UTI
Follow-up LFTs
Monitor blood sugar
Insulin supplementation as needed
DVT prophylaxis
GI prophylaxis if hypotensive on the ventilator
Early nutrition
Early mobilization/bedside range of motion
Dr. Oropeza updated son at length on 11/27/24 all
Critical care statement: A total of 45 minutes of critical care time was provided for this patient today. This includes management of unstable vital signs, evaluation of the patient at bedside, reviewing the patient's pertinent medical records
including radiographs, assisting in code, ventilator management, shock management, seizure management, and review of microbiology, laboratory evaluations, and discussion with primary team, consultants, pharmacy, nutrition, physical therapy, case
management, charge nurse, critical care nursing, and respiratory therapy.
Diagnostic data:
Chest x-ray -endotracheal tube tip 3.7 cm above meggan, bilateral mid to lower lung parenchymal opacifications most likely atelectasis
CT head 11/24/2024-no acute intracranial abnormalities, unchanged mild cerebellar atrophy
CT head 11/27/24-no acute intracranial manage narrowings, unchanged mild cerebellar atrophy and chronic white matter disease
CT abdomen and pelvis 05/18/2024-no renal or ureteral calculus, diverticulosis, no bowel obstruction, lung bases are clear
Echocardiogram 06/21/2023-EF 55-60%, moderate mitral regurgitation, mild to moderate aortic regurgitation
Subjective Dataa
Subjective Data
Date of Service:
Date of Service: November 28, 2024
Chief Complaint: Supervising Bailiff Follow Up and Pulmonary Follow Up
Subjective:
still not following commands, no purposeful movements, no increase secretions, FiO2 weaned,
Review of Systems
General: Unobtainable - Pat Unresp
Objective Data
Data Reviewed
Vital Signs / I&O / Oxygen:
Vital Signs
Temp Pulse Resp BP Pulse Ox
98.7 F 69 12 102/49 96
11/28/24 05:23 11/28/24 05:15 11/28/24 05:15 11/28/24 05:00 11/28/24 07:40
Intake and Output
11/27/24 11/28/24 11/29/24
06:59 06:59 06:59
Intake Total 2749.5 / 2749.5 281.0 / 281.0
Output Total 807 / 807 75 / 75
Balance 1942.5 / 1942.5 206.0 / 206.0
SaO2 [A/C] 96
SaO2 98
Physical Exam
General: Respiratory Distress (n) and Comfortable
HEENT: Normocephalic, Anicteric and Moist Mucous Membranes
Cardiovascular: Regular Rhythm
Respiratory: Wheeze (n), Crackles (n), Rhonchi, Non-Labored Respirations and Accessory Resp Muscle Use (n)
GI: Soft, Non Distended and Non Tender
Neurology: Unresponsive
Skin: Warm, Good Color, Cyanosis (n), Jaundice (n) and Rash (n)
Labs/Micro/Reports
Laboratory Results
11/27/24 11/27/24 11/28/24
13:01 13:29 03:32
PT 14.4
INR 1.09
APTT 24.1
pH 7.46 H 7.44
pCO2 24 L 30 L
pO2 201 H 150 H
HCO3 17.1 L 20.4 L
O2 Delivery Level
Microbiology
11/26/24 17:18 Urine Urine Culture - Final
No Significant Growth
--- NOTE | 2024-11-28 09:20 | W.PN.CARDCBS ---
Addendum entered and electronically signed by Jp Worley MD 11/28/24 10:25:
Echo with EF of 45%. There is mid anterior, mid anteroseptal, mid lateral, and apical akinesis. Could be Takotsubo versus HI with possible coronary spasm given resolution of EKG changes. Will add eventual beta-manuela and consider ischemic
evaluation depending on neurologic course
Original Note:
Today's Communication / Plan
-
Stable cardiology status
Etiology of PEA arrest is unclear
Check echo with elevated troponin which are felt to be non-HI ischemic injury
Impression / Plan
-
Impression:
Cardiopulmonary arrest/PEA
Unclear etiology, potentially neurologically mediated
No malignant arrhythmias or significant pauses noted on telemetry while the event happened
Initially ECG demonstrated ST segment elevations in the anterior leads which subsequently resolved, possibly vasospastic
Elevated troponin 3.6 felt to be non-HI ischemic injury
Atypical migraines
Dizziness
Moderate mitral digitation
Dyspnea on exertion
Essential hypertension
Dyslipidemia
Peripheral polyneuropathy
Gastroesophageal reflux
Chronic hyponatremia
Echocardiogram June 21, 2023 finds normal left ventricular systolic function ejection fraction of 55%, moderate mitral digitation, mild to moderate aortic insufficiency, mild tricuspid insufficiency.
Recommendations:
Etiology of arrest is unclear and is undergoing neuro work-up with continuous EEG monitoring and is post to get MRI
She remains unresponsive
Pressors are weaned off
Will check echo with elevated troponin but felt to be non-HI ischemic injury and ECG has normalized
Discussed with drug safety associate as well as nursing in detail
Progress Note - [employer]
Subjective
Date of Service: November 28, 2024
No complaints
Objective
Labs:
Labs
Hgb 8.9 g/dL (12.0-16.0) L D 11/28/24 03:20
Hct 24.4 % (37.0-47.0) L 11/28/24 03:20
Plt Count 243 10^3/uL (130-400) D 11/28/24 03:20
PT 14.4 Sec (11.4-14.6) 11/27/24 13:01
INR 1.09 11/27/24 13:01
APTT 24.1 Sec (23.4-35.0) 11/27/24 13:01
Sodium 129 mmol/L (135-145) L 11/28/24 03:20
Potassium 2.9 mmol/L (3.5-5.1) L 11/28/24 03:20
BUN 6 mg/dl (7-17) L 11/28/24 03:20
Creatinine 0.3 mg/dL (0.6-1.0) L 11/28/24 03:20
Glucose 79 mg/dl (70-99) 11/28/24 03:20
Troponins
11/27/24 11/27/24 11/28/24
13:29 18:15 01:04
Troponin I < 0.012 1.810 H* D 3.640 H* D
Vital Signs and I&O:
Vital Signs
Temp Pulse Resp BP Pulse Ox
98.7 F 69 12 102/49 99
11/28/24 05:23 11/28/24 05:15 11/28/24 05:15 11/28/24 05:00 11/28/24 08:53
Vital Signs
Temp Pulse Resp BP Pulse Ox
98.7 F 69 12 102/49 99
11/28/24 05:23 11/28/24 05:15 11/28/24 05:15 11/28/24 05:00 11/28/24 08:53
Intake & Output
11/26/24 11/27/24 11/28/24 11/29/24
06:59 06:59 06:59 06:59
Intake Total 2749.5 / 2749.5 444.5 / 444.5
Output Total 807 / 807 120 / 120
Balance 1942.5 / 1942.5 324.5 / 324.5
Physical Exam
Physical Exam
General: Unresponsive
Neck: Supple, no JVD, HJR, carotids +2 B/L, no bruits bilaterally.
Heart: Non displaced PMI, RRR, no murmurs, No S3, S4, no rubs.
Lungs: Scattered rhonchi
Extremities: No clubbing, cyanosis or edema bilaterally.
Neuro: Unresponsive
[2024-11-28 09:53] LABS: Hematocrit 29.8 % (37.0-47.0); Hemoglobin 10.6 g/dL (12.0-16.0)
--- NOTE | 2024-11-28 10:00 | PTCARENOTE ---
Patient getting echocardiogram. EKG completed as per order this am. Maintaining safe environment.
[2024-11-28 10:27] LABS: Troponin I 2.460 ng/ml
[2024-11-28 10:33] LABS: Blood Urea Nitrogen 7 mg/dl (7-17); Calcium 8.0 mg/dl (8.4-10.2); Carbon Dioxide 20 mmol/L (22-30); Chloride 109 mmol/L (98-107); Estimated Creatinine Clearance 68 ml/min; Glucose 100 mg/dl (70-99); Magnesium 2.0 mg/dl (1.6-2.3); Potassium 4.5 mmol/L (3.5-5.1); Sodium 133 mmol/L (135-145); eGFR > 60.00
--- NOTE | 2024-11-28 11:18 | PTCARENOTE ---
MRI screening completed with patient's son Eran. Patient is on 24 hr EEG. Will call MRI when off. No change in patient's assessment. continuing to turn and reposition. Patient echo read, results relayed to son from Dr. Worley.
--- NOTE | 2024-11-28 11:40 | W.PN.HOSP.TC ---
Today's Communication/Plan
-
EEG
MRI Brain once EEG completed
reduce rate of Bicarb ggt
ASA
Eventual BB and ischemic work up depending on neurological status
Assessment / Plan
Assessment / Plan
General: Other (79y F in on mechanical ventilation.)
HEENT: Other (Dry MM)
Respiratory: Clear; No Wheezes, Rales or Rhonchi
Cardiac: S1/S2 and Regular Rhythm; No Murmur
GI: Soft, Non Distended, Normal Bowel Sounds and Other (Mild upper abdominal tenderness without rebound/ guarding.)
Musculoskeletal: No Clubbing, No Cyanosis and No Edema
Neuro: AO x 3 and Nonfocal/grossly intact
A/P: Patient is an 79y F with PMH significant for hypertension, migraines and GERD who presents to ED complaining of headache and nausea.
?PEA Arrest
VDRF
-Questionable PEA arrest after Trigeminal Block -Status post occipital injection-injected with dexamethasone, bupivacaine and epi
- maintained rhythm on tele; required 1 dose epi
-Max 2-4 min total down time and resuscitation prior to ROSC
-?Possible Drug/ Allergic reaction
- Intubated 11/27; On mechanical ventilation, wean as tolerated
-CT head unremarkable
-EKG with possible STEMI although repeat EKG normalized - suspect coronary spasm
-Cards, Admeasurer consulted
-Fentanyl ideal for monitoring for seizures
-Cont EEG as per Neuro
-F/u Neuro recs
-MRI once EEG completed
-Due to rapid improvement, ROSC and unlikely anoxic event - will hold on TTM, especially with seizures as higher dx diagnosis
-Neuro checks
Abnormal EKG findings
Elevated Troponin
-ST segment elevation - resolved on repeat EKG
-Suspected Coronary vasospasms
-Started ASA
-Eventual ischemic work up
-ECHO: Echo with EF of 45%. There is mid anterior, mid anteroseptal, mid lateral, and apical akinesis. Could be Takotsubo versus CT with possible coronary spasm given resolution of EKG changes.
-Eventual BB
-Trops peaked at 3.6
-Cards on board
Non Anion Gap Metabolic Acidosis
-stop NSS
-Bicarb ggt, wean to 75cc/hr
-monitor bicarb
Intractable Headache and Nausea
Migraine Headaches
- Status post occipital injection-injected with dexamethasone, bupivacaine and epi
-monitor once extubated
Hypokalemia - monitor and replete
Hypotension
Elevated Lactate
most likely related to positive pressure from mech ventilation
-weaned off norepinephrine
- at this time sepsis appears unlikely although monitor hemodynamics, wbc, fever curve for initation of abx; low threshold
-IVF PRN
-stop ACEI
Transaminitis
-may be related to PEA arrest
-monitor
-hold statin
Hyponatremia
-monitor
GERD
- Recent endoscopy with significant gastritis / inflammation.
- Advised to begin BID omeprazole (which she states she has yet to start).
- BID PPI for now.
- Follow for improvement in nausea.
Benign Hypertension
- stop bp meds
Peripheral Neuropathy
- Stable. Continue gabapentin.
DVT Prophylaxis: HSQ
Code Status: Full
Total time spent on today's encounter was 51 minutes which included time spent in counseling the patient/family regarding diagnosis and treatment plan as listed above, goals of care, and symptom management. Case was discussed with nursing staff,
specialists, and care coordinators/case management. All labs and imaging personally reviewed by me. Remainder the time spent in detailed review of previous records, lab data, imaging, and other medical provider documentation.
Anticipated Discharge: > 48 hours
Subjective/Interval History
-
Date of Service: November 28, 2024
Remains ventilator dependent; Required bicarb for non anion gap metabolic acidosis; on cont EEG
Objective Data
-
Labs:
Laboratory Results
11/27/24 11/28/24 11/28/24
23:27 03:20 03:32
WBC 5.7
Hgb 8.9 L D
Hct 24.4 L
Plt Count 243 D
HCO3 20.4 L
Sodium 132 L 129 L
Potassium 3.8 2.9 L
Chloride 105 113 H
Carbon Dioxide 20 L 11 L*
BUN 10 6 L
Creatinine 0.5 L 0.3 L
Glucose 125 H 79
Calcium 8.6 5.2 L* D
Total Bilirubin 0.6
AST 162 H
ALT 198 H
Alkaline Phosphatase 27 L
11/28/24
09:44
WBC
Hgb 10.6 L
Hct 29.8 L
Plt Count
HCO3
Sodium 133 L
Potassium 4.5 D
Chloride 109 H
Carbon Dioxide 20 L
BUN 7
Creatinine 0.4 L
Glucose 100 H
Calcium 8.0 L D
Total Bilirubin
AST
ALT
Alkaline Phosphatase
Vital Signs:
Vital Signs
Temp Pulse Resp BP Pulse Ox
98.5 F 69 12 102/49 99
11/28/24 11:05 11/28/24 05:15 11/28/24 05:15 11/28/24 05:00 11/28/24 11:06
I&O
11/27/24 11/28/24 11/29/24
06:59 06:59 06:59
Intake Total 2749.5 / 2749.5 696.5 / 696.5
Output Total 807 / 807 230 / 230
Balance 1942.5 / 1942.5 466.5 / 466.5
Review of Systems
-
History Source: Patient
All other systems: Not reviewed unless documented
Data Reviewed
-
Diagnostic Radiology: Report Reviewed by mi
CT Scan: Report Reviewed by me
Labs: Labs Reviewed by me
--- NOTE | 2024-11-28 13:52 | PTCARENOTE ---
Dr. Henderson in with patient. Will stop EEG, patient more awake, following commands, will cancel MRI
[2024-11-28 14:54] LABS: B.E. 2.8 mmol/L; HCO3 25.7 mmol/L (21-28); O2 Saturation % 99.0 % (94-98); PCO2 33 mmHg (32-35); PO2 139 mmHg (83-108)
--- NOTE | 2024-11-28 15:09 | PTCARENOTE ---
blood gas done, order to extubate. tolerated.
--- NOTE | 2024-11-28 18:49 | W.PN.NEURO.1 ---
Today's Communication / Plan
-
extubate when able
Neuro Assessment/Plan
Assessment
79 year old woman with headache, occipital neuralgia
cardiac arrest after nerve block I administered 4 cc of mixture ~20 mg (0.3 mg/kg) bupivacaine very low dose, and did aspirate before injecting
does not appear like the usual described systemic toxicity syndrome with lidocaine/bupivacaine, in which cardiac arrest is typically refractory to resuscitation, and neurotoxicity often include convulsions
lidocaine IV commonly used to treat arrhythmias or pain
with high doses of lidocaine or bupivacaine I commonly see lightheadedness as a systemic symptoms
with 4 minutes of downtime, not expecting any anoxic injury; unclear why she didnt wake up immediately after ROSC
spoke with patient's son re: events of yesterday and above
Subjective/Objective
Subjective Data
Date of Service: November 28, 2024
seen early this afternoon. Patient on vent, awake, following commands.
Objective Data
Vital Signs
Temp Pulse Resp BP Pulse Ox
37.7 C 104 18 136/73 98
11/28/24 15:13 11/28/24 17:45 11/28/24 17:45 11/28/24 17:00 11/28/24 17:45
Lab Results
11/28/24 09:44
11/28/24 09:44
PT 14.4 Sec (11.4-14.6) 11/27/24 13:01
INR 1.09 11/27/24 13:01
APTT 24.1 Sec (23.4-35.0) 11/27/24 13:01
Sodium 133 mmol/L (135-145) L 11/28/24 09:44
Potassium 4.5 mmol/L (3.5-5.1) D 11/28/24 09:44
BUN 7 mg/dl (7-17) 11/28/24 09:44
Glucose 100 mg/dl (70-99) H 11/28/24 09:44
Calcium 8.0 mg/dl (8.4-10.2) L D 11/28/24 09:44
Phosphorus 2.6 mg/dl (2.5-4.5) 11/28/24 03:20
Patient Allergies
Cephalosporins Allergy (Verified 01/05/24 15:33)
Nausea
methylprednisolone (From Medrol) Allergy (Verified 01/05/24 15:33)
facial flushing
nitrofurantoin (From Macrobid) Allergy (Verified 01/05/24 15:33)
Hives/WELTS
oxycodone Allergy (Verified 01/05/24 15:33)
made her feel lightheaded
penicillin G Allergy (Verified 01/05/24 15:33)
Rash, itching, syncope
Penicillins Allergy (Verified 01/05/24 15:33)
Rash, itching, syncope
Sulfa (Sulfonamide Antibiotics) Allergy (Verified 01/05/24 15:33)
Burning sensation, flushing
sulfamethoxazole (From Bactrim) Allergy (Verified 01/05/24 15:33)
Burning sensation, flushing
trimethoprim (From Bactrim) Allergy (Verified 01/05/24 15:33)
Burning sensation, flushing
Physical Exam
-
on vent, awake, following commands
[2024-11-28] MEDS: TORADOL 10 MG IV (20:16)
--- NOTE | 2024-11-28 20:31 | EEGC.RPT ---
Continuous EEG Report
Recording
Start Date of Data Reviewed: 11/27/24
Start Time of Data Reviewed: 13:38
End Date of Data Reviewed: 11/28/24
End Time of Data Reviewed: 13:37
Report
Clinical Background:�cardiac arrest
Introduction: The patient begins with [facility] EEG. At 3 pm, the tech arrives and patient converted to EEG using [employer] 10-20 electrode placement protocol.
Background: In the most alert state, the PDR is 9 Hz in frequency with normal amplitude. There is spontaneous variability and reactivity.�The patient has multiple episodes of awake, beginning ~7:45 pm. most of the EEG shows generalized slowing with
bursts of slowing. ~2 am there is burst suppression lasting 1-2 hours
Sleep: some sleep spindles are seen.
Focal/epileptiform: There were no focal or epileptiform discharges. No clinical or electrographic seizures occurred during this recording.
Photic stimulation: resulted in normal driving response. There was no photo myogenic or photoparoxysmal response.�
Impression: sections of normal Awake first seen ~7:45 PM; most of the EEG consistent moderate or severe generalized cerebral dysfunction consistent with anesthetics
--- NOTE | 2024-11-28 21:25 | PTCARENOTE ---
Assumed care of pt at 1900. Pt is A/O x4, flat affect noted. Reports pain to chest r/t chest compressions, as well as headache and sore throat. Medicated with PRN Toradol, see EMAR. Currently on 4LNC, SpO2 98%, coarse rhonchi throughout and pt with
harsh moist-sounding non-productive cough. SR 90s/ST low 100s on monitor. See nursing shift assessment flowsheet for further physical assessment details. Pt tolerated about 50% of clear liquid dinner but was reporting nausea afterwards, declined
nausea medication that was offered to her stating 'I don't want to take any more medications'.
[2024-11-28] MEDS: NEURONTIN 100 MG PO (21:55)
[2024-11-29] VITALS (25 sets, daily range): BP systolic 81–136; BP diastolic 46–85; PULSE 74; O2SAT 96; BMI 31.8
--- NOTE | 2024-11-29 00:29 | PTCARENOTE ---
Midnight assessment unchanged. SR 80s on monitor. SpO2 95-96% on 4LNC. Pt verbalized that Toradol that had been given earlier helped with her pain. CHG cloth bath done/linens changed/carvajal care/oral care done before pt went to sleep (around 2214).
[2024-11-29] MEDS: SODIUM BICARBONATE 1150 MEQ IV (03:05)
[2024-11-29 03:25] LABS: Hematocrit 29.3 % (37.0-47.0); Hemoglobin 10.3 g/dL (12.0-16.0); Mean Corp Hgb Conc. 35.2 g/dL (33.0-37.0); Mean Corpuscular Volume 88.5 fL (81.0-99.0); Platelet Count 310 10^3/uL (130-400); Red Cell Dist. Width 13.6 % (11.5-14.5)
[2024-11-29 04:02] LABS: ALT (SGPT) 214 U/L (0-35); AST (SGOT) 134 U/L (14-36); Albumin 3.0 g/dl (3.5-5.0); Alkaline Phosphatase 58 U/L (38-126); Blood Urea Nitrogen 9 mg/dl (7-17); Calcium 8.3 mg/dl (8.4-10.2); Carbon Dioxide 32 mmol/L (22-30); Chloride 99 mmol/L (98-107); Estimated Creatinine Clearance 68 ml/min; Glucose 93 mg/dl (70-99); Magnesium 1.9 mg/dl (1.6-2.3); Potassium 4.0 mmol/L (3.5-5.1); Sodium 130 mmol/L (135-145); Total Protein 5.0 g/dl (6.3-8.2); eGFR > 60.00
--- NOTE | 2024-11-29 04:45 | PTCARENOTE ---
Assessment unchanged. Pt's CO2 on chemistry = 32, ICU SALES ADMINISTRATION MANAGER Lisa Veliz made aware and bicarb drip stopped. O2 weaned to 2LNC, is maintaining SpO2 96%. SR 80s on monitor. Pt has been asleep most of the shift, has been able to turn herself in bed
independently.
--- NOTE | 2024-11-29 05:12 | PTCARENOTE ---
Trialed patient on room air, SpO2 dropped to 87%, placed back on 2LNC.
[2024-11-29] MEDS: TYLENOL 650 MG PO ×2 (06:12→21:36)
[2024-11-29] MEDS: MIRALAX TUBE (07:54)
--- NOTE | 2024-11-29 07:56 | W.PN.INTV ---
Today's Communication / Plan
Recommendations
Tolerated extubation
Wean FiO2
Aspiration precautions
Increase activity
Norepinephrine wean-if able to be weaned off pressors then transfer out of ICU and call pulmonary if respiratory issues arise
Assessment
-
79-year-old former smoking female with a history of hypertension, chronic hyponatremia, diverticular disease, GERD, thyroid nodule and migraines who presented with headache and nausea. She stated that she had a headache for the last 11 days with
some neck discomfort-neurology saw patient and occipital injection to help with migraine was performed with dexamethasone (had Medrol allergy), benzocaine and epi-the patient complained of feeling lightheaded and was assisted into bed and then
became unconscious without complaints prior of chest pain but some mild shortness of breath-she subsequently had a PEA arrest with immediate CPR, 1 of epi with ROSC, good blood pressure 170/100, sinus tachycardia versus SVT but patient did not wake
up and intubated-licensed practical vocational nurse consulted for ventilator/allergic reaction/PEA arrest consultation 11/27/24.
Intractable headaches and nausea
Migraine headaches
Status post occipital injection-injected with dexamethasone, bupivacaine and epi
Subsequent PEA arrest-etiology unclear
Allergic reaction to injection suspected
PEA arrest-max 2-4-minute downtime-immediate bystander witnessed, immediate CPR, 1 epi with rapid ROSC
Based on sequence of events primary neurologic event suspected-? CVA, seizure, etc.
Targeted temperature management considered, however, with very brief downtime and highly unlikely significant anoxic event we will hold off especially since seizures are on the differential
Ventilator dependent respiratory failure during PEA arrest
Intubated 11/27/24
Extubated 11/28/2024
Abnormal EKG-ST segment elevation
Leukocytosis
Mild rdwuye-njkbtljndm-eanovindvo 11.7
Mild hyponatremia
Hyperglycemia
Transaminitis
Conditions present prior to admission:
GERD.
Migraine headaches.
Hypertension.
Chronic hyponatremia.
Diverticular disease.
Peripheral neuropathy.
Thyroid nodule.
Former smoker.
Obesity
Cataract. D&C. Blepharoplasty. Left total hip arthroplasty.
Plan
Tolerated spontaneous breathing trial and extubation 11/28/2024
Aspiration precautions
Incentive spirometry
Nebulizers if needed-currently not bronchospastic
Neurochecks can be discontinued
Neurology following-correspondence reviewed-unclear why patient had PEA after injection his symptoms not typical for systemic toxicity syndrome with lidocaine/bupivacaine
CT head unrevealing
Brain MRI canceled when patient woke up
Cerebell initiated and converted to continuous EEG-no obvious seizure activity
Possible allergic reaction-avoid steroids-known Medrol allergy and possible dexamethasone now as well-overall not convinced this was an allergic reaction to the injection
Antihistamines if needed
Pepcid if needed
Epinephrine if needed-try to avoid with ischemic changes on EKG when heart rate was in the 160s
Trend troponin
Check EKG-ST segment elevations improved
Cardiology evaluation-discussed with Dr. Montalvo on 11/27/[address] Worley on 11/28/2024
Aspirin added to regiment
Eventual cardiac ischemia evaluation
Decrease IV fluids
Norepinephrine weaned
Monitor leukocytosis
Recent UTI
Follow-up LFTs
Monitor blood sugar
Insulin supplementation as needed
DVT prophylaxis
GI prophylaxis if hypotensive on the ventilator
Early nutrition
Early mobilization/bedside range of motion
Dr. Oropeza updated son at length on 11/27/24
If patient remains stable postextubation and could be transferred out of ICU-licensed practical vocational nurse will sign off-call pulmonary if respiratory issues arise
Reviewed the patient's pertinent medical records including radiographs, assisting in code, ventilator management, shock management, seizure management, and review of microbiology, laboratory evaluations, and discussion with primary team,
consultants, pharmacy, nutrition, physical therapy, case management, charge nurse, critical care nursing, and respiratory therapy.
Diagnostic data:
Chest x-ray -endotracheal tube tip 3.7 cm above meggan, bilateral mid to lower lung parenchymal opacifications most likely atelectasis
CT head 11/24/2024-no acute intracranial abnormalities, unchanged mild cerebellar atrophy
CT head 11/27/24-no acute intracranial manage narrowings, unchanged mild cerebellar atrophy and chronic white matter disease
CT abdomen and pelvis 05/18/2024-no renal or ureteral calculus, diverticulosis, no bowel obstruction, lung bases are clear
Echocardiogram 06/21/2023-EF 55-60%, moderate mitral regurgitation, mild to moderate aortic regurgitation
Subjective Dataa
Subjective Data
Date of Service:
Date of Service: November 29, 2024
Chief Complaint: Sales Office Assistant Follow Up and Pulmonary Follow Up
Subjective:
tolerated extubation, does not remember anything up told to p.m. yesterday, no complaints of shortness of breath, chest congestion, productive cough, or abdominal pain
Review of Systems
General: Other ( Per HPI)
Objective Data
Data Reviewed
Vital Signs / I&O / Oxygen:
Vital Signs
Temp Pulse Resp BP Pulse Ox
98.6 F 99 21 122/68 94
11/29/24 07:15 11/29/24 06:17 11/29/24 06:17 11/29/24 06:17 11/29/24 06:17
Intake and Output
11/28/24 11/29/24 11/30/24
06:59 06:59 06:59
Intake Total 2749.5 / 2749.5 2784.5 / 2784.5
Output Total 807 / 807 1805 / 1805
Balance 1942.5 / 1942.5 979.5 / 979.5
SaO2 [A/C] 100
SaO2 94
Nasal Cannula flow liters per 2
minute
Physical Exam
General: Respiratory Distress (n) and Comfortable
HEENT: Normocephalic, Anicteric and Moist Mucous Membranes
Cardiovascular: Regular Rhythm
Respiratory: Wheeze (n), Crackles (n), Rhonchi, Non-Labored Respirations and Accessory Resp Muscle Use (n)
GI: Soft, Non Distended and Non Tender
Neurology: Awake, Alert and No Motor Deficits
Skin: Warm, Good Color, Cyanosis (n), Jaundice (n) and Rash (n)
Labs/Micro/Reports
Lab Data
11/29/24 03:12
11/29/24 03:12
Laboratory Results
11/28/24
14:45
pH 7.50 H
pCO2 33
pO2 139 H
HCO3 25.7
O2 Delivery Level
Microbiology
11/26/24 17:18 Urine Urine Culture - Final
No Significant Growth
[2024-11-29] MEDS: HEPARIN 5000 UNITS SC ×2 (08:33→16:33)
[2024-11-29] MEDS: NSS (PRESERVATIVE FREE) 10 ML IV (08:33)
[2024-11-29] MEDS: LOW STRENGTH ASPIRIN 81 MG TUBE (08:33)
[2024-11-29] MEDS: PROTONIX IV 40 MG IV (08:33)
--- NOTE | 2024-11-29 10:09 | W.PN.CARDCBS ---
Today's Communication / Plan
-
Echocardiogram with new regional wall send malady in the anterior wall,'s anteroseptum, and apex which could be due to Takotsubo's versus coronary spasm
Patient's son wishes to treat conservatively and I agree
Eventual beta-manuela when able to be weaned off of pressors
Impression / Plan
-
Impression:
Cardiopulmonary arrest/PEA
Unclear etiology, potentially neurologically mediated
No malignant arrhythmias or significant pauses noted on telemetry while the event happened
Initially ECG demonstrated ST segment elevations in the anterior leads which subsequently resolved, possibly vasospastic
Non-STEMI with ejection fraction of 45% with mid anteroseptal, mid anterior, mid lateral, and apical akinesis
Atypical migraines
Dizziness
Moderate mitral digitation
Dyspnea on exertion
Essential hypertension
Dyslipidemia
Peripheral polyneuropathy
Gastroesophageal reflux
Chronic hyponatremia
Echocardiogram 11/28/2024: Ejection fraction 45%, mid anteroseptal, mid anterior, mid lateral, and apical akinesis, mild to moderate TR PA systolic of 40 mmHg
Echocardiogram June 21, 2023 finds normal left ventricular systolic function ejection fraction of 55%, moderate mitral digitation, mild to moderate aortic insufficiency, mild tricuspid insufficiency.
Recommendations:
She has made a miraculous neurologic recovery
Echo with new regional wall motion abnormalities in the anterior, anteroseptum, and apex
Etiology unclear. Could be due to Takotsubo or coronary spasm as did have anterior ST elevation which resolved
Eventual add beta-manuela when able to tolerate as she continues to wean off of pressors
Spoke with patient's son in detail. He wishes to treat possible CAD conservatively and I agree. Will need repeat echocardiogram at some point.
Progress Note - Caustic Room Operator
Subjective
Date of Service: November 29, 2024
No complaints.
Objective
Labs:
11/29/24 03:12
11/29/24 03:12
Labs
Hgb 10.3 g/dL (12.0-16.0) L 11/29/24 03:12
Hct 29.3 % (37.0-47.0) L 11/29/24 03:12
Plt Count 310 10^3/uL (130-400) D 11/29/24 03:12
PT 14.4 Sec (11.4-14.6) 11/27/24 13:01
INR 1.09 11/27/24 13:01
APTT 24.1 Sec (23.4-35.0) 11/27/24 13:01
Sodium 130 mmol/L (135-145) L 11/29/24 03:12
Potassium 4.0 mmol/L (3.5-5.1) 11/29/24 03:12
BUN 9 mg/dl (7-17) 11/29/24 03:12
Creatinine 0.6 mg/dL (0.6-1.0) 11/29/24 03:12
Glucose 93 mg/dl (70-99) 11/29/24 03:12
Troponins
11/27/24 11/27/24 11/28/24
13:29 18:15 01:04
Troponin I < 0.012 1.810 H* D 3.640 H* D
11/28/24
09:44
Troponin I 2.460 H*
Vital Signs and I&O:
Vital Signs
Temp Pulse Resp BP Pulse Ox
98.6 F 73 17 102/59 95
11/29/24 07:15 11/29/24 09:00 11/29/24 09:00 11/29/24 09:00 11/29/24 09:00
Vital Signs
Temp Pulse Resp BP Pulse Ox
98.6 F 73 17 102/59 95
11/29/24 07:15 11/29/24 09:00 11/29/24 09:00 11/29/24 09:00 11/29/24 09:00
Intake & Output
11/27/24 11/28/24 11/29/24 11/30/24
06:59 06:59 06:59 06:59
Intake Total 2749.5 / 2749.5 2784.5 / 2784.5 450 / 450
Output Total 807 / 807 1805 / 1805 30 / 30
Balance 1942.5 / 1942.5 979.5 / 979.5 420 / 420
Physical Exam
Physical Exam
General: Well developed, well nourished in NAD.
Neck: Supple, no JVD, HJR, carotids +2 B/L, no bruits bilaterally.
Heart: Non displaced PMI, RRR, no murmurs, No S3, S4, no rubs.
Lungs: Scattered rhonchi throughout
Extremities: No clubbing, cyanosis or edema bilaterally.
Neuro: Grossly nonfocal, awake, alert and oriented x3.
--- NOTE | 2024-11-29 11:03 | W.PN.HOSP.TC ---
Today's Communication/Plan
-
MRI of the brain
Assessment / Plan
Assessment / Plan
Physical exam:
General: Acute on chronically
HEENT: Normocephalic, Atraumatic and Moist Mucous Membranes
Respiratory: Clear to Auscultation; Negative Wheezes, Rales or Rhonchi
Cardiac: Regular Rhythm and S1/S2
GI: Soft, Nontender and Nondistended
Musculoskeletal: No Clubbing, No Cyanosis and No Edema
Neuro: Awake, Alert and Oriented, no gross neurological deficit
Psych: Calm
A/P: Patient is an 79y F with PMH significant for hypertension, migraines and GERD who presents to ED complaining of headache and nausea.
Patient extubated and doing relatively well today:
Plan for MRI of the brain
Continue cardiac monitoring
Conservative treatment from cardiac perspective as below
Discussed with son at bedside
Speech therapy okay with regular diet
Transfer out of the ICU by tire shop manager when feels appropriate
?PEA Arrest
VDRF
-Questionable PEA arrest after Trigeminal Block -Status post occipital injection-injected with dexamethasone, bupivacaine and epi
- maintained rhythm on tele; required 1 dose epi
-Max 2-4 min total down time and resuscitation prior to ROSC
-?Possible Drug/ Allergic reaction
- Extubated.
-CT head unremarkable
-EKG with possible STEMI although repeat EKG normalized - suspect coronary spasm
-Cards, Water Leak Repairer consulted
-Fentanyl ideal for monitoring for seizures
-F/u Neuro recs
-MRI once EEG completed
-Due to rapid improvement, ROSC and unlikely anoxic event - will hold on TTM, especially with seizures as higher dx diagnosis
-Neuro checks
Abnormal EKG findings
Elevated Troponin
-ST segment elevation - resolved on repeat EKG
-Suspected Coronary vasospasms
-Started ASA
- Per cardiology even with new regional wall abnormality probably Takotsubo versus coronary spasm and after discussion with family plan to treat conservatively for now.
-ECHO: Echo with EF of 45%. There is mid anterior, mid anteroseptal, mid lateral, and apical akinesis. Could be Takotsubo versus [place] with possible coronary spasm given resolution of EKG changes.
-Eventual BB
-Trops peaked at 3.6
-Cards on board
Non Anion Gap Metabolic Acidosis
- Off bicarb drip
Intractable Headache and Nausea
Migraine Headaches
- Status post occipital injection-injected with dexamethasone, bupivacaine and epi
-monitor once extubated
Hypokalemia - monitor and replete
Hypotension
Elevated Lactate
most likely related to positive pressure from mech ventilation
-weaned off norepinephrine
- at this time sepsis appears unlikely although monitor hemodynamics, wbc, fever curve for initation of abx; low threshold
-IVF PRN
-stop ACEI
Transaminitis
-may be related to PEA arrest
-monitor
-hold statin
Hyponatremia
-monitor
GERD
- Recent endoscopy with significant gastritis / inflammation.
- Advised to begin BID omeprazole (which she states she has yet to start).
- BID PPI for now.
- Follow for improvement in nausea.
Benign Hypertension
- stop bp meds
Peripheral Neuropathy
- Stable. Continue gabapentin.
DVT Prophylaxis: HSQ
Code Status: Full
Time spent 35 minutes
Anticipated Discharge: 24 - 48 hours
Subjective/Interval History
-
Date of Service: November 29, 2024
Patient alert and complains of mild chest discomfort and lightheadedness. Afebrile.
Objective Data
-
Labs:
Laboratory Results
11/29/24
03:12
WBC 9.8
Hgb 10.3 L
Hct 29.3 L
Plt Count 310 D
Sodium 130 L
Potassium 4.0
Chloride 99
Carbon Dioxide 32 H
BUN 9
Creatinine 0.6
Glucose 93
Calcium 8.3 L
Total Bilirubin 1.0
AST 134 H
ALT 214 H
Alkaline Phosphatase 58
Vital Signs:
Vital Signs
Temp Pulse Resp BP Pulse Ox
98.6 F 67 17 104/55 97
11/29/24 07:15 11/29/24 10:00 11/29/24 10:00 11/29/24 10:00 11/29/24 10:00
I&O
11/28/24 11/29/24 11/30/24
06:59 06:59 06:59
Intake Total 2749.5 / 2749.5 2784.5 / 2784.5 450 / 450
Output Total 807 / 807 1805 / 1805 30 / 30
Balance 1942.5 / 1942.5 979.5 / 979.5 420 / 420
--- NOTE | 2024-11-29 13:05 | PTOTSP ---
Speech therapy
Presentation: Patient was recently intubated after CPR from 11/27-11/28. Since extubation, patient reports soreness within her oral cavity and throat. In addition, patient's voice appeared hoarse, strained, and weak. Patient's speech and language
appeared to be WNL during conversation. Patient denied any communicative complaints besides her vocal quality.
[facility] performed oral care with oral suctioning.
Swallowing Function: Patient was observed with several presentations of ice chips, tsp thin liquids, straw thin liquids, puree, and regular consistency solids in which patient appeared to tolerate all presentations as she did not exhibit any overt
clinical s/sx of aspiration or difficulty with mastication/ manipulation. Patient denied any dysphagia complaints. SpO2 and RR remained WNL during the assessment. Of note, patient was on 2L O2 via nasal cannula.
recommendations:
1) trial of reg/ thin
2) aspiration and reflux precautions
3) medications as tolerated
4) assistance with PO to ensure tolerance
5) PO only when RR <30 and SpO2 >90%
6) consideration of voice evaluation if it does not improve
plan: [facility] will continue to follow to ensure tolerance; pending hospitalization.
[2024-11-29] MEDS: TORADOL 10 MG IV ×2 (13:10→19:23)
[2024-11-29] MEDS: COMPAZINE 5 MG IV (13:11)
--- NOTE | 2024-11-29 15:27 | W.PN.NEURO.1 ---
Today's Communication / Plan
-
brain MRI
Neuro Assessment/Plan
Assessment
79 year old woman with headache, occipital neuralgia
cardiac arrest after nerve block I administered 4 cc of mixture ~20 mg (0.3 mg/kg) bupivacaine very low dose, and did aspirate before injecting
does not appear like the usual described systemic toxicity syndrome with lidocaine/bupivacaine, in which cardiac arrest is typically refractory to resuscitation, and neurotoxicity often include convulsions
lidocaine IV commonly used to treat arrhythmias or pain
with high doses of lidocaine or bupivacaine I commonly see lightheadedness as a systemic symptoms
with 4 minutes of downtime, not expecting any anoxic injury; unclear why she didnt wake up immediately after ROSC
spoke with patient's son re: events of yesterday and above
no med changes as headache is mild
discussed with patient and son MRI would still be indicated for increased headache frequency and they want it; back/shoulder pain morphine 1 mg for sedation
Subjective/Objective
Subjective Data
Date of Service: November 29, 2024
miraculous recovery in mental status.
feeling pretty rough, pain from CPR
presently headache is mild
Objective Data
Vital Signs
Temp Pulse Resp BP Pulse Ox
36.8 C 82 23 134/75 98
11/29/24 11:36 11/29/24 13:00 11/29/24 13:00 11/29/24 13:00 11/29/24 13:00
Lab Results
11/29/24 03:12
11/29/24 03:12
PT 14.4 Sec (11.4-14.6) 11/27/24 13:01
INR 1.09 11/27/24 13:01
APTT 24.1 Sec (23.4-35.0) 11/27/24 13:01
Sodium 130 mmol/L (135-145) L 11/29/24 03:12
Potassium 4.0 mmol/L (3.5-5.1) 11/29/24 03:12
BUN 9 mg/dl (7-17) 11/29/24 03:12
Glucose 93 mg/dl (70-99) 11/29/24 03:12
Calcium 8.3 mg/dl (8.4-10.2) L 11/29/24 03:12
Phosphorus 2.6 mg/dl (2.5-4.5) 11/28/24 03:20
Patient Allergies
Cephalosporins Allergy (Verified 01/05/24 15:33)
Nausea
methylprednisolone (From Medrol) Allergy (Verified 01/05/24 15:33)
facial flushing
nitrofurantoin (From Macrobid) Allergy (Verified 01/05/24 15:33)
Hives/WELTS
oxycodone Allergy (Verified 01/05/24 15:33)
made her feel lightheaded
penicillin G Allergy (Verified 01/05/24 15:33)
Rash, itching, syncope
Penicillins Allergy (Verified 01/05/24 15:33)
Rash, itching, syncope
Sulfa (Sulfonamide Antibiotics) Allergy (Verified 01/05/24 15:33)
Burning sensation, flushing
sulfamethoxazole (From Bactrim) Allergy (Verified 01/05/24 15:33)
Burning sensation, flushing
trimethoprim (From Bactrim) Allergy (Verified 01/05/24 15:33)
Burning sensation, flushing
bupivacaine Adverse Reaction (Severe, Verified 11/28/24 18:51)
cardiac arrest
Physical Exam
-
AAOx3, speech clear, language intact, VFF, EOMI
face symmetric
no pronator drift, full strength
cervical rotation symmetric today
palpated right c3 sublux
--- NOTE | 2024-11-29 15:55 | PTCARENOTE ---
pulled patient's carvajal earlier in shift. patient void on commode,, hand held assist. also had BM. charted in worklist. tele status patient.
[2024-11-29] MEDS: NSS (PRESERVATIVE FREE) IV (19:22)
[2024-11-29] MEDS: NEURONTIN 100 MG PO (21:36)
--- NOTE | 2024-11-29 22:15 | PTCARENOTE ---
Received pt resting in bed, AAOx3. Makes needs known. C/O sternal pain r/t chest compressions. Toradol given earlier in shift with some relief. Tylenol given now for mild pain. HANKINS. Assisted to bedside commode to void. SR on tele. HR 80s. BP stable.
Weak DPs. +1 LE edema. On 2 L NC. Spo2 95%. Lungs coarse with fine crackles at L base. Prod. cough. + bowel sounds. Regular diet. R DL PICC patent and capped. Call bailey in reach. Mouth care provided.
[2024-11-30] VITALS (10 sets, daily range): BP systolic 90–139; BP diastolic 47–78; PULSE 84; BMI 32.6
[2024-11-30] MEDS: HEPARIN 5000 UNITS SC ×4 (00:10→22:58)
[2024-11-30 03:54] LABS: Hematocrit 28.0 % (37.0-47.0); Hemoglobin 9.8 g/dL (12.0-16.0); Mean Corp Hgb Conc. 35.0 g/dL (33.0-37.0); Mean Corpuscular Volume 89.5 fL (81.0-99.0); Platelet Count 287 10^3/uL (130-400); Red Cell Dist. Width 13.5 % (11.5-14.5)
[2024-11-30 04:09] LABS: ALT (SGPT) 155 U/L (0-35); AST (SGOT) 70 U/L (14-36); Albumin 2.9 g/dl (3.5-5.0); Alkaline Phosphatase 68 U/L (38-126); Blood Urea Nitrogen 10 mg/dl (7-17); Calcium 8.4 mg/dl (8.4-10.2); Carbon Dioxide 29 mmol/L (22-30); Chloride 101 mmol/L (98-107); Estimated Creatinine Clearance 69 ml/min; Glucose 94 mg/dl (70-99); Potassium 3.9 mmol/L (3.5-5.1); Sodium 129 mmol/L (135-145); Total Protein 5.0 g/dl (6.3-8.2); eGFR > 60.00
--- NOTE | 2024-11-30 05:47 | PTCARENOTE ---
Pt transfer to 3w. Assessment done and charted. pt appears comfortable in bed and call bailey within reach.
[2024-11-30] MEDS: LOW STRENGTH ASPIRIN 81 MG TUBE (07:39)
[2024-11-30] MEDS: NSS (PRESERVATIVE FREE) IV ×2 (07:43→20:55)
[2024-11-30] MEDS: MIRALAX 17 GRAMS TUBE (07:46)
[2024-11-30] MEDS: MORPHINE SULFATE 1 MG IV (10:20)
[2024-11-30] MEDS: TYLENOL 650 MG PO ×3 (12:59→20:44)
[2024-11-30 13:59] LABS: Lyme Antibody Screen, EIA Negative (Negative)
--- NOTE | 2024-11-30 14:39 | W.PN.HOSP.TC ---
Addendum entered and electronically signed by Cristóbal Mathis MD 12/04/24 07:54:
ST seg elevation due to OTHER causes - coronary vasospasm/Prinzmetal angina
Original Note:
Today's Communication/Plan
-
see note
Assessment / Plan
Assessment / Plan
1. Chronic headache
- Patient was having persistent headache issues for 8 days before coming to the hospital
- Patient underwent an occipital nerve block by neurology
- Currently has been headache free, recommended for patient to follow-up with neurology in outpatient basis for further workup
- MRI brain without contrast did not show any acute abnormalities.
2. PEA arrest
- Patient had 4 minutes of PEA arrest while getting occipital nerve block.
- No signs of anoxic brain injury clinically
- EEG did not show any seizure activity
- Echocardiogram showing EF 45%, stage III diastolic dysfunction. Cardiology evaluated finding and question of possible Takotsubo history from coronary spasm. After discussion with family decided to be managed conservatively.
3. Troponin elevation
- ST segment elevation resolved on repeat EKG
- Cardiac suspect coronary vasospasms
- Echo showed heart failure with midrange EF.
- Cardio planning to do conservative management. Adding small dose of Lopressor. on baby ASA
4. Vent dependent respiratory failure
- Required as part of resuscitation measures, now extubated on room air
5. Metabolic Acidosis
Lactic acidosis
- resolved with bicarb drip
6. Hypokalemia
- monitor and replete PRN
7. Transaminitis
-may be related to PEA arrest
-statin on hold, trending down
Hyponatremia
GERD - Recent endoscopy with significant gastritis / inflammation. on BID PPI
Benign Hypertension
Peripheral Neuropathy
DVT Prophylaxis: HSQ
Code Status: Full
Physical therapy recommended acute rehab although patient is doing much better per RN. Repeat PT evaluation recommended in will be discharged according to re-eval
Anticipated Discharge: Within 24 hours
Subjective/Interval History
-
Date of Service: November 30, 2024
denies of having headache,
no other reported issues
Objective Data
-
Labs:
Laboratory Results
11/30/24
03:23
WBC 6.4
Hgb 9.8 L
Hct 28.0 L
Plt Count 287
Sodium 129 L
Potassium 3.9
Chloride 101
Carbon Dioxide 29
BUN 10
Creatinine 0.5 L
Glucose 94
Calcium 8.4
Total Bilirubin 0.7
AST 70 H
ALT 155 H
Alkaline Phosphatase 68
Vital Signs:
Vital Signs
Temp Pulse Resp BP Pulse Ox
99.5 F 90 18 139/76 93
11/30/24 11:30 11/30/24 11:30 11/30/24 11:30 11/30/24 11:30 11/30/24 11:30
I&O
11/29/24 11/30/24 12/01/24
06:59 06:59 06:59
Intake Total 2784.5 / 2784.5 690 / 690
Output Total 1805 / 1805 730 / 730
Balance 979.5 / 979.5 -40 / -40
Review of Systems
-
Respiratory: Reports No Symptoms
Cardiac: Reports No Symptoms
Abdomen/GI: Reports No Symptoms
Physical Exam
-
General: Negative Appears in Distress
HEENT: Negative Oxygen
Neuro: Awake, Alert, Oriented and No Motor Deficits
--- NOTE | 2024-11-30 15:38 | W.PN.CARDCBS ---
Addendum entered and electronically signed by Jp Worley MD 11/30/24 16:00:
I saw and examined the patient.
The TRIPE COOKER or PA's note was reviewed and I agree with the note.
Comment: General: Well developed, well nourished in NAD.
Neck: Supple, no JVD, HJR, carotids +2 B/L, no bruits bilaterally.
Heart: Non displaced PMI, RRR, no murmurs, No S3, S4, no rubs.
Lungs: Clear to auscultation bilaterally, no wheeze, rhonchi, rubs bilaterally,
normal expiratory phase.
Extremities: No clubbing, cyanosis or edema bilaterally.
Neuro: Grossly nonfocal, awake, alert and oriented x3.
She has made dramatic neurologic recovery. Will change Lopressor to Toprol given mildly reduced ejection fraction. Presumed cause is coronary spasm versus Takotsubo. Recheck echocardiogram as an outpatient. Discussed with patient and son in
detail.
Addendum entered and electronically signed by Merle Linares PA-C 11/30/24 15:50:
Correction, will wait to restart atorvastatin until LFTs improve. Would restart atorvastatin when LFTs are less than twice the upper limit of normal
Original Note:
Today's Communication / Plan
-
Consider changing Lopressor to Coreg or Toprol XL
Consider adding Plavix
Check CVE, restarting outpatient dose of atorvastatin 10 mg daily
Impression / Plan
-
PCP: Dr. Bailey Salmeron
Card: Dr. JOSHUA Soria
Impression:
Admitted with MA and nausea 11/26/24
Cardiopulmonary arrest/PEA 11/27/24
Unclear etiology, potentially neurologically mediated
No malignant arrhythmias or significant pauses noted on telemetry while the event happened
Initially ECG demonstrated ST segment elevations in the anterior leads which subsequently resolved, possibly vasospastic
Non-STEMI with ejection fraction of 45% with mid anteroseptal, mid anterior, mid lateral, and apical akinesis
Atypical migraines
Dizziness
Moderate mitral digitation
Dyspnea on exertion
Essential hypertension
Dyslipidemia
Peripheral polyneuropathy
Gastroesophageal reflux
Chronic hyponatremia
Echo 06/21/23 finds normal left ventricular systolic function ejection fraction of 55%, moderate mitral digitation, mild to moderate aortic insufficiency, mild tricuspid insufficiency.
Echo 11/28/2024: Ejection fraction 45%, mid anteroseptal, mid anterior, mid lateral, and apical akinesis, mild to moderate TR PA systolic of 40 mmHg
Recommendations:
-Patient admitted with MA and nausea, then had a PEA arrest after right occipital nerve block and right c3 paraspinals trigger point injection.
-Initial ECG with anterior ST elevation that resolved spontaneously. On echo there was new CM EF 45% with mid anteroseptal, mid anterior, mid lateral and apical akinesis. No plans for cardiac catheterization due to desire to avoid procedures after
events from earlier this admission. There is a possibility that patient had Takotsubo CM or even coronary spasm given ECG finding.
-Recommend repeat echo following 3 months GDMT.
-New to Lopressor 12.5 mg BID, consider transitioning to Toprol-XL or Coreg given CM
-New to aspirin 81 mg daily
-Consider adding Plavix 75 mg daily due to NSTEMI
-Check CVE, ordered by me 11/30/2024. Outpatient dose of atorvastatin 10 mg daily is on hold, will restart, orders placed by me.
-PT/OT notes reviewed by me and patient is recommended acute rehab, would eventually recommend cardiac rehab as well once she has improved from a PT/OT standpoint.
Progress Note - Assessment Specialist
Subjective
Date of Service: November 30, 2024
No chest pain
Objective
Labs:
11/30/24 03:23
11/30/24 03:23
Labs
Hgb 9.8 g/dL (12.0-16.0) L 11/30/24 03:23
Hct 28.0 % (37.0-47.0) L 11/30/24 03:23
Plt Count 287 10^3/uL (130-400) 11/30/24 03:23
PT 14.4 Sec (11.4-14.6) 11/27/24 13:01
INR 1.09 11/27/24 13:01
APTT 24.1 Sec (23.4-35.0) 11/27/24 13:01
Sodium 129 mmol/L (135-145) L 11/30/24 03:23
Potassium 3.9 mmol/L (3.5-5.1) 11/30/24 03:23
BUN 10 mg/dl (7-17) 11/30/24 03:23
Creatinine 0.5 mg/dL (0.6-1.0) L 11/30/24 03:23
Glucose 94 mg/dl (70-99) 11/30/24 03:23
Troponins
11/27/24 11/28/24 11/28/24
18:15 01:04 09:44
Troponin I 1.810 H* D 3.640 H* D 2.460 H*
Vital Signs and I&O:
Vital Signs
Temp Pulse Resp BP Pulse Ox
99.5 F 90 18 139/76 93
11/30/24 11:30 11/30/24 11:30 11/30/24 11:30 11/30/24 11:30 11/30/24 11:30
Vital Signs
Temp Pulse Resp BP Pulse Ox
99.5 F 90 18 139/76 93
11/30/24 11:30 11/30/24 11:30 11/30/24 11:30 11/30/24 11:30 11/30/24 11:30
Intake & Output
11/28/24 11/29/24 11/30/24 12/01/24
06:59 06:59 06:59 06:59
Intake Total 2749.5 / 2749.5 2784.5 / 2784.5 690 / 690
Output Total 807 / 807 1805 / 1805 730 / 730
Balance 1942.5 / 1941.5 979.5 / 979.5 -40 / -40
Physical Exam
Physical Exam
GEN: AAOx3
LUNGS: RA
CV: SR on tele
[2024-11-30] MEDS: TOPROL XL 25 MG PO (16:11)
[2024-11-30 16:24] LABS: HDL Cholesterol 40 mg/dl
[2024-11-30 19:22] LABS: LDL Cholesterol, Calculated 50 mg/dl; Very Low Density Lipoprotein 26 mg/dl (0-30)
[2024-11-30] MEDS: TORADOL 10 MG IV (22:09)
[2024-11-30] MEDS: NEURONTIN 100 MG PO (22:57)
[2024-12-01] VITALS (7 sets, daily range): BP systolic 104–146; BP diastolic 47–75; PULSE 75; O2SAT 93; BMI 32.7
[2024-12-01 06:25] LABS: Hematocrit 28.5 % (37.0-47.0); Hemoglobin 9.9 g/dL (12.0-16.0); Mean Corp Hgb Conc. 34.7 g/dL (33.0-37.0); Mean Corpuscular Volume 90.2 fL (81.0-99.0); Platelet Count 316 10^3/uL (130-400); Red Cell Dist. Width 13.3 % (11.5-14.5)
[2024-12-01 06:35] LABS: ALT (SGPT) 111 U/L (0-35); AST (SGOT) 47 U/L (14-36); Albumin 3.0 g/dl (3.5-5.0); Blood Urea Nitrogen 11 mg/dl (7-17); Calcium 8.7 mg/dl (8.4-10.2); Carbon Dioxide 26 mmol/L (22-30); Chloride 104 mmol/L (98-107); Estimated Creatinine Clearance 70 ml/min; Glucose 101 mg/dl (70-99); Potassium 4.1 mmol/L (3.5-5.1); Sodium 133 mmol/L (135-145); Total Protein 5.2 g/dl (6.3-8.2); eGFR > 60.00
[2024-12-01 06:46] LABS: Alkaline Phosphatase 65 U/L (38-126)
[2024-12-01] MEDS: TOPROL XL 25 MG PO (08:14)
[2024-12-01] MEDS: MIRALAX 17 GRAMS TUBE (08:14)
[2024-12-01] MEDS: LOW STRENGTH ASPIRIN 81 MG TUBE (08:14)
[2024-12-01] MEDS: HEPARIN 5000 UNITS SC ×3 (08:14→23:59)
--- NOTE | 2024-12-01 10:09 | W.PN.HOSP.TC ---
Today's Communication/Plan
-
incentive spirometer/acapella
await CM notes
await PM&R eval
Assessment / Plan
Assessment / Plan
pt is an 79 year old female
PEA arrest--happened after injection for migraine--c/o chest pain--likely from CPR--would give patient pillow to grab with coughing--apprec cards
- Patient had 4 minutes of PEA arrest while getting occipital nerve block.
- No signs of anoxic brain injury clinically
- EEG did not show any seizure activity
- Echocardiogram showing EF 45%, stage III diastolic dysfunction. Cardiology evaluated finding and question of possible Takotsubo history from coronary spasm. After discussion with family decided to be managed conservatively.
Chronic headache--resolved
- Patient was having persistent headache issues for 8 days before coming to the hospital
- Patient underwent an occipital nerve block by neurology
- Currently has been headache free, recommended for patient to follow-up with neurology in outpatient basis for further workup
- MRI brain without contrast did not show any acute abnormalities.
Troponin elevation--suspect due to coronary vasospasms--trended downward
- ST segment elevation resolved on repeat EKG
- Cardiac suspect coronary vasospasms
- Echo showed heart failure with midrange EF.
- Cardio planning to do conservative management. Adding small dose of Lopressor. on baby ASA
Vent dependent respiratory failure--resolved--pt coughing up clear phlegm--sputum cup at bedside--will add IS and acapella
- Required as part of resuscitation measures, now extubated on room air
Metabolic Acidosis--resolved
Lactic acidosis
- resolved with bicarb drip
Hypokalemia
- monitor and replete PRN
Transaminitis
-may be related to PEA arrest
-statin on hold, trending down
Hyponatremia--improving
GERD - Recent endoscopy with significant gastritis / inflammation. on BID PPI
Benign Hypertension
Peripheral Neuropathy
dispostition--no CM notes since pt admission--therapy recommending acute rehab--await PM&R eval
DVT Prophylaxis: HSQ
Code Status: Full
Anticipated Discharge: 24 - 48 hours
Subjective/Interval History
-
Date of Service: December 01, 2024
pt c/o chest pain irma with coughing--coughing up clear phlegm
Objective Data
-
Labs:
Laboratory Results
12/01/24
05:53
WBC 5.9
Hgb 9.9 L
Hct 28.5 L
Plt Count 316
Sodium 133 L
Potassium 4.1
Chloride 104
Carbon Dioxide 26
BUN 11
Creatinine 0.6
Glucose 101 H
Calcium 8.7
Total Bilirubin 0.6
AST 47 H
ALT 111 H
Alkaline Phosphatase 65
Vital Signs:
max temp for 24 hours
12/01/24
03:00
Temp 98.7 F
Vital Signs
Temp Pulse Resp BP Pulse Ox
98.6 F 85 16 139/74 93
12/01/24 07:00 12/01/24 07:00 12/01/24 07:00 12/01/24 07:00 12/01/24 07:00
I&O
11/30/24 12/01/24 12/02/24
06:59 06:59 06:59
Intake Total 690 / 690 1440 / 1440
Output Total 730 / 730
Balance -40 / -40 1440 / 1440
Review of Systems
-
All other systems: Reviewed and negative
Respiratory: Reports Cough
Cardiac: Reports Chest Pain
Physical Exam
-
General: Well Developed, Well Nourished and No Apparent Distress
HEENT: Normocephalic and Atraumatic
Respiratory: Clear to Auscultation; Negative Wheezes or Rhonchi
Cardiac: Regular Rhythm and S1/S2; Negative Murmur
GI: Soft, Nontender, Nondistended and Normal Bowel Sounds
Musculoskeletal: No Clubbing, No Cyanosis and No Edema
Skin: Warm
Neuro: Awake and Alert
Psych: Calm
--- NOTE | 2024-12-01 10:28 | CM ---
Addendum entered by Chandni Stanton 12/02/24 09:05:
Late entry from 12/01/2024; Call received from [facility] reviewer who advised that authorization request needed to be sent to the Corporate Strategist for review.
Addendum entered by Chandni Stanton 12/01/24 16:44:
Pt accepted to [facility], insurance authorization approved for transfer today; awaiting authorization number for transfer.
Addendum entered by Chandni Stanton 12/01/24 14:39:
TT to Dr. House requesting OT order. TT to OT to request pt to be seen today if possible.
Plan: [facility] pending OT eval and Physiatry consult.
Original Note:
CM following for discharge planning. Referral to [facility] submitted yesterday. VINCE spoke with Ángela at [facility] and she will review for admission pending bed availability. Awaiting Physiatry consult.
[2024-12-01] MEDS: ROBITUSSIN DM 10 ML PO ×2 (11:08→20:40)
[2024-12-01] MEDS: TYLENOL 650 MG PO ×2 (11:08→20:40)
--- NOTE | 2024-12-01 14:38 | W.PN.CARDCBS ---
Addendum entered and electronically signed by Jp Worley MD 12/01/24 15:54:
I saw and examined the patient.
The COMPENSATION BUSINESS PARTNER or PA's note was reviewed and I agree with the note.
Comment: General: Well developed, well nourished in NAD.
Neck: Supple, no JVD, HJR, carotids +2 B/L, no bruits bilaterally.
Heart: Non displaced PMI, RRR, no murmurs, No S3, S4, no rubs.
Lungs: Scattered rhonchi
Extremities: No clubbing, cyanosis or edema bilaterally.
Neuro: Grossly nonfocal, awake, alert and oriented x3.
Stable cardiology status. Eventually restart Crestor when LFTs have improved. Will start Plavix given non-STEMI.
Original Note:
Today's Communication / Plan
-
Start Plavix 75 mg daily
Lopressor changed to Toprol XL
Eventually restart Crestor once LFTs improved
Impression / Plan
-
PCP: Dr. Bailey Salmeron
Card: Dr. JOSHUA Soria
Impression:
Admitted with MA and nausea 11/26/24
Cardiopulmonary arrest/PEA 11/27/24
Unclear etiology, potentially neurologically mediated
No malignant arrhythmias or significant pauses noted on telemetry while the event happened
Initially ECG demonstrated ST segment elevations in the anterior leads which subsequently resolved, possibly vasospastic
NSTEMI with ejection fraction of 45% with mid anteroseptal, mid anterior, mid lateral, and apical akinesis
Atypical migraines
Dizziness
Moderate mitral digitation
Dyspnea on exertion
Essential hypertension
Dyslipidemia
Peripheral polyneuropathy
Gastroesophageal reflux
Chronic hyponatremia
Echo 06/21/23 finds normal left ventricular systolic function ejection fraction of 55%, moderate mitral digitation, mild to moderate aortic insufficiency, mild tricuspid insufficiency.
Echo 11/28/2024: Ejection fraction 45%, mid anteroseptal, mid anterior, mid lateral, and apical akinesis, mild to moderate TR PA systolic of 40 mmHg
Recommendations:
-Patient admitted with MA and nausea, then had a PEA arrest after right occipital nerve block and right C3 paraspinal trigger point injection.
-Cardiology initially consulted for anterior ST elevations on initial ECG that resolved spontaneously. Troponin peaked at 3.64. On echo there was new CM EF 45% with mid anteroseptal, mid anterior, mid lateral and apical akinesis. Patient managed as
a NSTEMI.
-No plans for cardiac catheterization due to desire to avoid procedures after events from earlier this admission. There is a possibility that patient had Takotsubo CM or even coronary spasm given ECG finding.
-Recommend repeat echo following 3 months GDMT.
-New to Lopressor this admission and then transitioned to Toprol XL 25 mg daily on 11/30/24
-New to aspirin 81 mg daily
-Will add Plavix 75 mg daily due to NSTEMI, orders placed by me
-LDL 50. Outpatient dose of atorvastatin 10 mg daily is on hold, will restart once LFTs less than twice the upper limit of normal.
-PT/OT notes reviewed by me and patient is recommended acute rehab, possibly even [facility]. Would eventually recommend cardiac rehab as well once patient has improved from a PT/OT standpoint.
Progress Note - Line Haul Owner Operator
Subjective
Date of Service: December 01, 2024
No chest pain
Objective
Labs:
12/01/24 05:53
12/01/24 05:53
Labs
Hgb 9.9 g/dL (12.0-16.0) L 12/01/24 05:53
Hct 28.5 % (37.0-47.0) L 12/01/24 05:53
Plt Count 316 10^3/uL (130-400) 12/01/24 05:53
PT 14.4 Sec (11.4-14.6) 11/27/24 13:01
INR 1.09 11/27/24 13:01
APTT 24.1 Sec (23.4-35.0) 11/27/24 13:01
Sodium 133 mmol/L (135-145) L 12/01/24 05:53
Potassium 4.1 mmol/L (3.5-5.1) 12/01/24 05:53
BUN 11 mg/dl (7-17) 12/01/24 05:53
Creatinine 0.6 mg/dL (0.6-1.0) 12/01/24 05:53
Glucose 101 mg/dl (70-99) H 12/01/24 05:53
Vital Signs and I&O:
Vital Signs
Temp Pulse Resp BP Pulse Ox
99.3 F 79 16 146/75 93
12/01/24 11:00 12/01/24 11:00 12/01/24 11:00 12/01/24 11:00 12/01/24 11:00
Vital Signs
Temp Pulse Resp BP Pulse Ox
99.3 F 79 16 146/75 93
12/01/24 11:00 12/01/24 11:00 12/01/24 11:00 12/01/24 11:00 12/01/24 11:00
Intake & Output
11/29/24 11/30/24 12/01/24 12/02/24
06:59 06:59 06:59 06:59
Intake Total 2784.5 / 2784.5 690 / 690 1440 / 1440
Output Total 1805 / 1805 730 / 730
Balance 979.5 / 979.5 -40 / -40 1440 / 1440
Physical Exam
Physical Exam
GEN: AAOx3
LUNGS: RA
CV: SR on tele
[2024-12-01] MEDS: NEURONTIN 100 MG PO (22:10)
[2024-12-02] MEDS: TYLENOL 650 MG PO ×2 (02:59→08:25)
[2024-12-02] MEDS: ROBITUSSIN DM 10 ML PO ×2 (02:59→08:25)
[2024-12-02 03:30] VITALS: BP 135/71
[2024-12-02 06:00] VITALS: BMI 32.0
[2024-12-02 06:41] LABS: Hematocrit 30.8 % (37.0-47.0); Hemoglobin 10.7 g/dL (12.0-16.0); Mean Corp Hgb Conc. 34.7 g/dL (33.0-37.0); Mean Corpuscular Volume 91.1 fL (81.0-99.0); Platelet Count 361 10^3/uL (130-400); Red Cell Dist. Width 13.7 % (11.5-14.5)
[2024-12-02 07:00] VITALS: BP 131/78
[2024-12-02 07:06] LABS: ALT (SGPT) 92 U/L (0-35); AST (SGOT) 33 U/L (14-36); Albumin 3.3 g/dl (3.5-5.0); Alkaline Phosphatase 66 U/L (38-126); Blood Urea Nitrogen 7 mg/dl (7-17); Calcium 9.0 mg/dl (8.4-10.2); Carbon Dioxide 27 mmol/L (22-30); Chloride 106 mmol/L (98-107); Estimated Creatinine Clearance 69 ml/min; Glucose 97 mg/dl (70-99); Magnesium 1.9 mg/dl (1.6-2.3); Potassium 4.4 mmol/L (3.5-5.1); Sodium 134 mmol/L (135-145); Total Protein 5.6 g/dl (6.3-8.2); eGFR > 60.00
[2024-12-02] MEDS: PLAVIX 75 MG PO (08:25)
[2024-12-02] MEDS: TOPROL XL 25 MG PO (08:26)
[2024-12-02] MEDS: LOW STRENGTH ASPIRIN 81 MG TUBE (08:26)
[2024-12-02] MEDS: HEPARIN 5000 UNITS SC (08:26)
[2024-12-02] MEDS: MIRALAX TUBE (08:26)
--- NOTE | 2024-12-02 09:10 | PN.CDI ---
CDI
- -
CDI:
Physician Documentation Request
Admit Date: 11/30/24 08:00
Dear Doctor Harsh,
Please review the following and provide your response in the progress notes.
Clinical Indicators:
- Patient admit after PEA arrest
- 12/01 PN ' Troponin elevation--suspect due to coronary vasospasms'
- 'ST segment elevation resolved on repeat EKG'
- 12/01 Cardiology 'Troponin peaked at 3.64...new CM EF 45% with mid anteroseptal, mid anterior, mid lateral and apical akinesis...managed as a NSTEMI.'
- 11/27 EKG 'ST ELEVATION CONSIDER ANTEROLATERAL INJURY OR ACUTE INFARCT'
Laboratory Tests
11/27/24 11/28/24 11/28/24
18:15 01:04 09:44
Troponin I 1.810 H* D 3.640 H* D 2.460 H*
Please clarify the following regarding the documented elevated troponins:
STEMI
NSTEMI
Other (please specify)
Use of terms such as suspected, likely, concern for, or probable (associated with a specific diagnosis that is being evaluated, monitored, or treated as if it exists) are acceptable and can be coded in the inpatient setting, when documented at the
time of discharge.
Thank you,
Sherman Watson RN
CDI Specialist
Please use your independent medical judgment in providing your response.
--- NOTE | 2024-12-02 09:55 | CM ---
Addendum entered by Chandni Stanton 12/02/24 10:24:
Call received from Aline, [facility] reviewer, who advised that [facility] authorization has been approved for transfer today.
Authorization #[id number]
Robert Report: [phone]
Robert
Original Note:
CM continues to follow for transfer to [facility] pending authorization which needed to be sent to the [facility] medical review specialist for review after Antony, the [facility] reviewer advised that it was approved.
Plan: CM continues to follow, awaiting update regarding [facility] authorization for transfer.
[2024-12-02 10:17] LABS: COVID-19 Antigen Negative (Negative)
[2024-12-02 11:00] VITALS: BP 139/73
[2024-12-02] MEDS: PROTONIX 40 MG PO (11:14)
[2024-12-02] MEDS: EDECRIN 50 MG PO (11:14)
--- NOTE | 2024-12-02 14:05 | W.PN.CARDCBS ---
Today's Communication / Plan
-
Stable cardiology transfer to [facility]
Decrease Toprol to 12.5 mg daily with some dizziness
Add Protonix with possible GI upset with Plavix
Restart Lipitor 10 mg added LFTs have normalized
Impression / Plan
-
PCP: Dr. Bailey Salmeron
Card: Dr. JOSHUA Soria
Impression:
Admitted with MA and nausea 11/26/24
Cardiopulmonary arrest/PEA 11/27/24
Unclear etiology, potentially neurologically mediated
No malignant arrhythmias or significant pauses noted on telemetry while the event happened
Initially ECG demonstrated ST segment elevations in the anterior leads which subsequently resolved, possibly vasospastic
NSTEMI with ejection fraction of 45% with mid anteroseptal, mid anterior, mid lateral, and apical akinesis
Atypical migraines
Dizziness
Moderate mitral digitation
Dyspnea on exertion
Essential hypertension
Dyslipidemia
Peripheral polyneuropathy
Gastroesophageal reflux
Chronic hyponatremia
Echo 06/21/23 finds normal left ventricular systolic function ejection fraction of 55%, moderate mitral digitation, mild to moderate aortic insufficiency, mild tricuspid insufficiency.
Echo 11/28/2024: Ejection fraction 45%, mid anteroseptal, mid anterior, mid lateral, and apical akinesis, mild to moderate TR PA systolic of 40 mmHg
Recommendations:
She does not feel well today with complaints of dizziness.
Will decrease Toprol to 12.5 mg daily.
Will add PPI as she was not on Pepcid in the past and may have some GI irritation from Plavix
No plans for cardiac catheterization due to desire to avoid procedures after events from earlier this admission. There is a possibility that patient had Takotsubo CM or even coronary spasm given ECG finding.
Recommend repeat echo following 3 months GDMT.
Restart Lipitor 10 mg now but LFTs have normalized.
Stable cardiology status for transfer to [facility].
Progress Note - [employer]
Subjective
Date of Service: December 02, 2024
Complains of dizziness and not feeling well this morning
Objective
Labs:
12/02/24 05:50
12/02/24 05:50
Labs
Hgb 10.7 g/dL (12.0-16.0) L 12/02/24 05:50
Hct 30.8 % (37.0-47.0) L 12/02/24 05:50
Plt Count 361 10^3/uL (130-400) 12/02/24 05:50
PT 14.4 Sec (11.4-14.6) 11/27/24 13:01
INR 1.09 11/27/24 13:01
APTT 24.1 Sec (23.4-35.0) 11/27/24 13:01
Sodium 134 mmol/L (135-145) L 12/02/24 05:50
Potassium 4.4 mmol/L (3.5-5.1) 12/02/24 05:50
BUN 7 mg/dl (7-17) 12/02/24 05:50
Creatinine 0.5 mg/dL (0.6-1.0) L 12/02/24 05:50
Glucose 97 mg/dl (70-99) 12/02/24 05:50
Vital Signs and I&O:
Vital Signs
Temp Pulse Resp BP Pulse Ox
98.2 F 74 17 139/73 97
12/02/24 11:00 12/02/24 11:00 12/02/24 11:00 12/02/24 11:00 12/02/24 11:00
Vital Signs
Temp Pulse Resp BP Pulse Ox
98.2 F 74 17 139/73 97
12/02/24 11:00 12/02/24 11:00 12/02/24 11:00 12/02/24 11:00 12/02/24 11:00
Intake & Output
11/30/24 12/01/24 12/02/24 12/03/24
06:59 06:59 06:59 06:59
Intake Total 690 / 690 1440 / 1440 980 / 980
Output Total 730 / 730
Balance -40 / -40 1440 / 1440 980 / 980
Physical Exam
Physical Exam
General: Well developed, well nourished in NAD.
Neck: Supple, no JVD, HJR, carotids +2 B/L, no bruits bilaterally.
Heart: Non displaced PMI, RRR, no murmurs, No S3, S4, no rubs.
Lungs: Clear to auscultation bilaterally, no wheeze, rhonchi, rubs bilaterally,
normal expiratory phase.
Extremities: No clubbing, cyanosis or edema bilaterally.
Neuro: Grossly nonfocal, awake, alert and oriented x3.
--- NOTE | 2024-12-02 14:51 | W.PN.HOSP.TC ---
Today's Communication/Plan
-
d/c [facility]
Assessment / Plan
Assessment / Plan
pt is an 79 year old female
PEA arrest--happened after injection for migraine
Chest pain- MSK in nature from chest complression
- Patient had 4 minutes of PEA arrest while getting occipital nerve block.
- No signs of anoxic brain injury clinically
- EEG did not show any seizure activity
- Echocardiogram showing EF 45%, stage III diastolic dysfunction. Cardiology evaluated finding and question of possible Takotsubo history from coronary spasm. After discussion with family decided to be managed conservatively.
Chronic headache--resolved
- Patient was having persistent headache issues for 8 days before coming to the hospital
- Patient underwent an occipital nerve block by neurology
- Currently has been headache free, recommended for patient to follow-up with neurology in outpatient basis for further workup
- MRI brain without contrast did not show any acute abnormalities.
Troponin elevation--suspect due to coronary vasospasms--trended downward
- ST segment elevation resolved on repeat EKG
- Cardiac suspect coronary vasospasms
- Echo showed heart failure with midrange EF.
- Cardio planning to do conservative management. Adding small dose of Lopressor. on baby ASA
Vent dependent respiratory failure--resolved--pt coughing up clear phlegm--sputum cup at bedside--will add IS and acapella
- Required as part of resuscitation measures, now extubated on room air
Metabolic Acidosis--resolved
Lactic acidosis
- resolved with bicarb drip
Dry cough
- Chest x-ray showing blunting of costophrenic angle, questioning if patient have iatrogenic volume overload from IV hydration during the hospitalization. As patient allergic to sulfa medication will provide one-time dose of ethacrynic acid 50 mg
- COVID check negative
Hypokalemia
- monitor and replete PRN
Transaminitis
-may be related to PEA arrest
-statin on hold, trending down
Hyponatremia--improving
GERD - Recent endoscopy with significant gastritis / inflammation. on BID PPI
Benign Hypertension
Peripheral Neuropathy
DVT Prophylaxis: HSQ
Code Status: Full
More than 30 minutes spent in discharge including
Final examination of the patient
Summarizing hospital stay
Instructions for continuing care to all relevant caregivers
Preparation of discharge records, prescriptions, and referral forms
Total time spent (in minutes):39 mins
Anticipated Discharge: Today
Subjective/Interval History
-
Date of Service: December 02, 2024
Having some cough
Chest discomfort on coughing
Intra scapular pain
Objective Data
-
Labs:
Laboratory Results
12/02/24
05:50
WBC 7.7
Hgb 10.7 L
Hct 30.8 L
Plt Count 361
Sodium 134 L
Potassium 4.4
Chloride 106
Carbon Dioxide 27
BUN 7
Creatinine 0.5 L
Glucose 97
Calcium 9.0
Total Bilirubin 0.7
AST 33
ALT 92 H
Alkaline Phosphatase 66
Vital Signs:
Vital Signs
Temp Pulse Resp BP Pulse Ox
98.2 F 74 17 139/73 97
12/02/24 11:00 12/02/24 11:00 12/02/24 11:00 12/02/24 11:00 12/02/24 11:00
I&O
12/01/24 12/02/24 12/03/24
06:59 06:59 06:59
Intake Total 1440 / 1440 980 / 980
Balance 1440 / 1440 980 / 980
Review of Systems
-
Respiratory: Reports No Symptoms
Cardiac: Reports No Symptoms
Abdomen/GI: Reports No Symptoms
Physical Exam
-
General: No Apparent Distress
HEENT: Negative Oxygen
Respiratory: Clear to Auscultation; Negative Wheezes or Rhonchi
Cardiac: Regular Rhythm and S1/S2; Negative Murmur
GI: Soft, Nontender and Nondistended
Skin: Warm
Neuro: Awake and Alert
Psych: Calm
--- NOTE | 2024-12-04 07:57 | W.DCSUMMARY ---
Discharge Summary
Discharge Data
Date of Admission: 11/30/24
Date of Discharge: 12/02/24
-
Pending Results: No
Hospital Course
Discharging Physician : Dr Cristóbal Mathis
Disposition : Acute rehab
Primary care physician : Unknown
Principal Discharge diagnosis :
Brief pulseless electrical activity arrest
Chronic headache
Troponin elevation
Ventilator dependent respiratory failure
Metabolic acidosis
Electrolyte imbalance
Transaminitis
Hyponatremia
Chronic Discharge diagnosis :
Gastroesophageal reflux disease
Essential hypertension
Peripheral neuropathy
Hospital Course :
Patient is an 79-year-old female with above-mentioned past medical history came with new onset of headache and nausea. Patient headache was persistent for more than 10 days and came to ER for further evaluation. Patient CT head in the ER was
unremarkable. Neurology was consulted for further help. Neurology diagnosed patient for having possible occipital headache and patient was given an occipital nerve block with bupivacaine/dexamethasone/epi. Unfortunately quickly after that patient
felt dizzy and became unresponsive, patient was found to be in PEA arrest and resuscitation measures were initiated. Patient required brief CPR measures for 4 minutes and was intubated afterwards. 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 An echocardiogram was done which showed low EF 45% with suspicion of possible Takotsubo versus coronary spasm as ST segment or EKG changes rapidly normalized. Patient had EEG which did not show any seizure
activities. Patient was able to be extubated and was not requiring any oxygen support after that. Cardiology recommended patient to be managed conservatively with patient started on beta-manuela therapy. Patient was having some dry cough and
chest discomfort after resuscitation measures which was felt to be related to chest compression. Chest x-ray/COVID checks were negative. There was minimal fluid collection in costophrenic angle and patient was periodic diuretic therapy. Post
medical stabilization patient was discharged to acute rehab based on PT recommendation.
Important imaging findings :
None
Procedure findings :
None
Discharge Plan
-
Patient Disposition: Acute Rehab Facility
Discharge Diagnosis/Procedures: PEA arrest after migraine injection, chronic headache, troponin elevation due to coronary vasospasms, vent dependent respiratory failure, metabolic acidosis, hypokalemia, transaminitis, hyponatremia, gastroesophageal
reflux disease, essential hypertension, peripheral neuropathy
Condition: Good
Diet: Low Cholesterol
Activity: As tolerated
Driving Restrictions: As prior to admission
Bathing Restrictions: None
Referrals:
Bailey Salmeron MD [Family Provider, Internal Medicine] - in less than 1 week
Prescriptions:
New
acetaminophen 325 mg Tablet
650 mg PO Q4HPRN PRN (Reason: Mild Pain / Temp > 101) Qty: 0 0RF
clopidogrel 75 mg Tablet
75 mg PO DAILY Qty: 0 0RF
metoprolol succinate 25 mg Tablet Extended Release 24 Hr
25 mg PO DAILY Qty: 0 0RF
aspirin 81 mg Tablet,Chewable
81 mg PO DAILY Qty: 0 0RF
dextromethorphan-guaifenesin 10-100 mg/5 mL Syrup
10 ml PO Q4HPRN PRN (Reason: cough) Qty: 0 0RF
Continued
gabapentin 100 MG capsule
100 mg PO HS
cranberry extract
1 cap PO DAILY
ascorbic acid (vitamin C) [Vitamin C] 1,000 mg Tablet
1,000 mg PO DAILY
cholecalciferol (vitamin D3) [Vitamin D3] 50 mcg (2,000 unit) Tablet
50 mcg PO DAILY
Held
atorvastatin 10 mg Tablet
10 mg PO HS
Hold Instructions: do not start until LFTs have decreased--doctor will tell you when
Rx Instructions:
do not start until LFTs have decrased
Discontinued
lisinopril 5 MG tablet
10 mg PO DAILY
omeprazole 40 mg Capsule,Delayed Release(Dr/Ec)
40 mg PO BID
Discharge Orders:
Discharge Patient (As Directed); Ordered 12/01/24
Ordered By: Macey House
Discharge Date and Time
Discharge Date/Time: 12/02/24 13:20
Print Language: [place]
== END 2024-12-02 13:20 | DRG 302 ==
LOC: 3 WEST ACU 08:00
PROVIDERS: Internal Medicine; Nurse Practitioner Family; ADMITTING PHYSICIAN Hospitalist; ATTENDING PHYSICIAN Hospitalist; CONSULT PHYSICIAN Psychiatry & Neurology Clinical Neurophysiology; EMERGENCY PHYSICIAN Emergency Medicine; FAMILY PHYSICIAN Internal Medicine; OTHER PHYSICIAN Internal Medicine Cardiovascular Disease; OTHER PHYSICIAN Internal Medicine Critical Care Medicine
PROC: 5A1935Z Respiratory Ventilation, Less than 24 Consecutive Hours (ICD-10-PCS; 2024-11-30)
DX: I25.111 Atherosclerotic heart disease of native coronary artery with angina pectoris with documented spasm (principal); I46.9 Cardiac arrest, cause unspecified; J96.90 Respiratory failure, unspecified, unspecified whether with hypoxia or hypercapnia; E87.1 Hypo-osmolality and hyponatremia; E87.20 Acidosis, unspecified; I51.81 Takotsubo syndrome; Z87.891 Personal history of nicotine dependence; K21.9 Gastro-esophageal reflux disease without esophagitis; I10 Essential (primary) hypertension; G62.9 Polyneuropathy, unspecified; E87.6 Hypokalemia
CPT/HCPCS: 36600; 70450; 70551; 71045; 71046; 80048; 80053; 80061; 81003; 81015; 82805; 82962; 83605; 83735; 84100; 84478; 84484; 85014; 85018; 85025; 85027; 85610; 85730; 86618; 87086; 87811; 92610; 93005; 93306; 94002; 94003; 95714; 96361; 96374; 96375; 96376; 97110; 97116; 97163; 97166; 99284

== ENCOUNTER 2024-12-04 07:30 | Emergency (ER) | payer OTHER, SELFPAY ==
[2024-12-04 07:30] VITALS: BMI 31.6
[2024-12-04 07:31] VITALS: BP 156/85
[2024-12-04 07:36] VITALS: BP 156/85
[2024-12-04 08:04] LABS: Hematocrit 36.8 % (37.0-47.0); Hemoglobin 12.5 g/dL (12.0-16.0); Mean Corp Hgb Conc. 34.0 g/dL (33.0-37.0); Mean Corpuscular Volume 90.9 fL (81.0-99.0); Nucleated Red Blood Cells % 0 %; Platelet Count 439 10^3/uL (130-400); Red Cell Dist. Width 13.8 % (11.5-14.5)
[2024-12-04 08:33] LABS: Troponin I 0.045 ng/ml
[2024-12-04 08:46] LABS: ALT (SGPT) 61 U/L (0-35); AST (SGOT) 31 U/L (14-36); Albumin 3.8 g/dl (3.5-5.0); Alkaline Phosphatase 66 U/L (38-126); Blood Urea Nitrogen 10 mg/dl (7-17); Calcium 8.8 mg/dl (8.4-10.2); Carbon Dioxide 21 mmol/L (22-30); Chloride 107 mmol/L (98-107); Estimated Creatinine Clearance 69 ml/min; Glucose 106 mg/dl (70-99); Potassium 4.4 mmol/L (3.5-5.1); Sodium 134 mmol/L (135-145); Total Protein 6.2 g/dl (6.3-8.2); eGFR > 60.00
[2024-12-04 10:36] VITALS: BP 153/78
[2024-12-04] MEDS: MORPHINE SULFATE 4 MG IV (10:39)
[2024-12-04 11:00] VITALS: BP 131/64
[2024-12-04 11:56] LABS: Troponin I 0.042 ng/ml
[2024-12-04 12:00] VITALS: BP 133/71
--- NOTE | 2024-12-04 13:06 | ED.GENMED ---
History of Present Illness
General
Chief Complaint: Numbness
Source: patient
Time Seen by Provider: 12/04/24 07:32
History of Present Illness
History of Present Illness:
Note:
CHIEF COMPLAINT(S)
Chest pain and left leg heaviness.
HISTORY OF PRESENT ILLNESS
The patient is an 79-year-old female presenting with chest pain and heaviness in the left leg. She reports experiencing a 'terrible, sharp pain' in her chest, which was exacerbated by attempting to get out of a chair that was too deep for her. She
mentioned that this chest pain worsened since receiving CPR, which she reportedly underwent on a recent hospital visit where she was treated for what was initially thought to be a pinched nerve in her shoulder. Following a nerve block injection by a
neurologist, the patient had a syncope episode.
The patient also noted experiencing significant swelling in both her lower extremities the previous day, which was so substantial that she could not fit into her shoes. This was identified by her physical therapist, prompting the recommendation to
use a wheelchair and keep her legs elevated. This morning, upon waking, her left leg felt heavy and initially numb, which improved after getting out of bed and applying compression stockings. She still describes a sensation of heaviness but denies
current numbness. During the examination, leg strength appeared sufficient bilaterally.
She has a reported high pain tolerance and was agreeable to receiving pain medication today. The left chest wall, specifically the left parasternal region at about the rib number five margin, was noted to be tender upon physical examination.
ALLERGIES
The patient is allergic to penicillin and sulfa drugs.
PHYSICAL EXAM
General: Alert, oriented to person, place, and time.
Skin: Warm, dry.
Head: Normocephalic, atraumatic.
Neck: Supple, trachea midline.
Eye, Ears, Nose, Mouth, and Throat: Oral mucosa moist.
Cardiovascular: Heart sounds regular without murmur, normal peripheral perfusion, no edema.
Respiratory: Lungs clear to auscultation bilaterally, respirations non-labored.
Gastrointestinal: Abdomen nondistended.
Back: Normal range of motion, normal alignment.
Musculoskeletal: Normal range of motion, normal strength in upper and lower extremities.
Neurological: Alert and oriented to person, place, and time, cranial nerves intact, motor strength equal and normal bilaterally.
Psychiatric: Cooperative, appropriate mood and affect.
PROBLEM LIST
Acute:
1. Chest pain
2. Left leg heaviness
PLAN
The plan includes administering morphine for pain management. Further evaluation of recent hospital records and imaging will be required to ascertain the cause of the symptoms.
DIFFERENTIAL DIAGNOSIS
The Differential Diagnosis includes, in no particular order and is not limited to:
1. Musculoskeletal pain due to CPR
2. Costochondritis
3. Myocardial infarction
4. Pulmonary embolism
5. Angina
6. Peripheral vascular disease
7. Congestive heart failure
8. Deep vein thrombosis
9. Neuropathy
10. Rib fracture
EKG
My independent EKG interpretation is:
- Rhythm: Normal sinus rhythm
- Heart Rate: 88 bpm
- [place]: Normal axis
- Intervals: Normal CO interval, QRS duration, and QT interval
- Additional Findings: No pathological Q waves or notably abnormal skin changes observed
Disposition:
SUMMARY OF ENCOUNTER
The 79-year-old female patient presented with heaviness in the left leg and persistent focal pain in the left chest wall, which was reproducible on examination. The chest pain is suspected to be related to chest compressions from CPR as noted by the
patients previous medical advice. The patients troponin levels, though initially elevated, have been declining; they were as high as 3.64 and are now down to 0.042. Her DVT ultrasound is negative, and she has a well-perfused foot. Neurological
assessment is normal, and her chemistry panel shows mildly low bicarbonate of 21 with other values including renal function and sodium being normal. CBC results are normal. The EKG did not show any ischemic changes. Given the absence of stroke
symptoms, with normal gait, strength, and sensation, the patient is deemed safe for discharge with a recommendation for close follow-up at [facility].
DISPOSITION
Discharge.
ASSESSMENT
The patients left chest pain is likely related to musculoskeletal pain secondary to recent chest compressions during CPR. The heaviness in her leg may be due to recent swelling, but DVT is ruled out with a negative ultrasound, and neurological
examination is normal. Do not suspect CVA. Gait is observed to be normal by me, strength normal, sensory exam normal.
PLAN
Discharge patient with instructions to follow up closely with healthcare providers at [facility]. Monitor symptoms and attend physical therapy if necessary for further management of leg heaviness and chest pain.
INDEPENDENT REVIEW OF LABS AND INTERPRETATION OF TESTS
- My independent review of troponin indicates a decline from a recent admission level of 3.64 to 0.042.
- My independent review of CBC is normal.
- My independent review of chemistry panel indicates a mildly low bicarbonate of 21 with otherwise normal results.
- My independent EKG interpretation is not ischemic.
MEDICAL DECISION MAKING
-Complexity of Data Reviewed: Chronic conditions affecting care with acknowledged issues such as recent cardiac arrest post-injection and CPR-related chest pain. Differential diagnosis includes musculoskeletal pain due to CPR, costochondritis,
myocardial infarction, pulmonary embolism, angina, peripheral vascular disease, congestive heart failure, deep vein thrombosis, neuropathy, and rib fracture.
-Data:
Category 1:
- My independent interpretation of EKG is not ischemic.
- Chemistry panel with a mildly low bicarbonate of 21, normal CBC, and a declining troponin level were reviewed.
- A negative DVT ultrasound was reviewed.
-Risk: Consideration of Admission/Observation: Escalation of care including admission/observation was considered given the complexity and risk of the patients presenting complaint, exam findings, and their underlying comorbidities. However,
ultimately I feel the patient is safe for outpatient management with close follow up. Reasoning: Work-up reassuring, does not reveal any acute life/organ-threatening processes, patients symptoms well controlled upon reevaluation, reexamination is
reassuring, vitals are stable, patient agreeable with discharge, reliable for follow-up.
DIAGNOSIS
- Chest pain due to probable musculoskeletal injuries (related to CPR) [ICD-10 code R07.89]
- Heaviness in left leg, etiology likely related to swelling [ICD-10 code R26.89]
- Declining troponin levels, indicative of non-acute myocardial injury [ICD-10 code R79.89]
Past History
Past History
ED Past Medical History: HTN, Hypercholesterolemia, Other (Arthritis , headaches, difficulty with balance, neck pain) and Other (Diverticulosis, proctitis, internal hemorrhoids); Negative CAD, Cancer or COPD
ED Past Surgical History: Gynecological (D&C ) and Other (Left eyelid surgery)
Patient has exhibited threatening behavior?: No
PSI?: No
Social History
Tobacco: Non-smoker
Alcohol: None
Drug: None
Personal:
Living: alone
Employment: Retired
Family History
Family History: Other (Uncontributory)
Phy Exam
Physical Exam
Physical Exam:
.
Course
Orders/Labs/Results
Orders:
Orders
12/04/24 07:39
Electrocardiogram (*1) Urgent
Reason for Study: Other
Other Reason for Exam: tachy
EKG- Treatment ONCE
12/04/24 07:43
Complete Blood Count/With Diff Urgent
Troponin I Urgent
12/04/24 08:06
CT Head W/o Iv Contrast Urgent
Comment:
Reason For Exam: LLE numbness, recent cardiac arrest
12/04/24 08:16
Comprehensive Metabolic Panel Urgent
12/04/24 10:21
Morphine Sulfate 4 mg IV NOW STA
12/04/24 10:23
Morphine Sulfate 4 mg IV NOW STA
12/04/24 10:43
Troponin I Urgent
12/04/24 11:41
US Periph Venous LOWER Ext LT Urgent
Comment:
Reason For Exam: discomfort/swelling, hospitalized
Abnormal Lab Results
12/04/24 12/04/24 12/04/24
07:43 08:16 10:43
RBC 4.05 L 10^6/uL
(4.20-5.40)
Hct 36.8 L %
(37.0-47.0)
Plt Count 439 H D 10^3/uL
(130-400)
Abs Immat Gran (auto) 0.1 H 10^3/uL
(0-0.05)
Absolute Monos (auto) 0.9 H 10^3/uL
(0.1-0.6)
Immature Gran % 0.6 H %
(0-0.5)
Monocytes % 10.1 H %
(1.7-9.3)
Sodium 134 L mmol/L
(135-145)
Carbon Dioxide 21 L mmol/L
(22-30)
Creatinine 0.5 L mg/dL
(0.6-1.0)
Glucose 106 H mg/dl
(70-99)
ALT 61 H U/L
(0-35)
Troponin I 0.045 H* ng/ml 0.042 H* ng/ml
Total Protein 6.2 L g/dl
(6.3-8.2)
12/04/24 07:43
12/04/24 08:16
Vital Signs
Initial and Last Documented VS:
Initial Vital Signs
Temp Pulse Resp BP Pulse Ox
97.9 F 95 18 156/85 92
12/04/24 07:31 12/04/24 07:31 12/04/24 07:31 12/04/24 07:31 12/04/24 07:31
Last Documented Vital Signs
Temp Pulse Resp BP Pulse Ox
97.9 F 90 20 133/71 99
12/04/24 07:31 12/04/24 13:06 12/04/24 13:06 12/04/24 12:00 12/04/24 13:07
*Pulse Oximetry
SaO2: 99
Oxygen Mode of Delivery: Room air
Patient hypoxic: no
*Critical Care Note
Total Time (30-74mins, 75-104mins- exclusive of procedures): Not Applicable
ED Attending Note
-
Portions of this chart may have been created with voice recognition software.� Occasional wrong word or��sound alike� substitutions may have occurred due to the inherent limitations of voice recognition software.
Discharge Plan
Departure
Patient Disposition: Home (Routine Discharge)
Date of Disposition: 12/04/24
Time of Disposition: 13:09
Patient with high blood pressure during this ER visit?: No
Discharge Problem:
Heavy sensation of lower extremity, Anterior chest wall pain
Instructions: Chest pain in adults - ED discharge instructions
Prescriptions:
No Action
gabapentin 100 MG capsule
100 mg PO HS
ascorbic acid (vitamin C) [Vitamin C] 1,000 mg Tablet
500 mg PO DAILY
cholecalciferol (vitamin D3) [Vitamin D3] 50 mcg (2,000 unit) Tablet
50 mcg PO DAILY
clopidogrel 75 mg Tablet
75 mg PO DAILY Qty: 0 0RF
metoprolol succinate 25 mg Tablet Extended Release 24 Hr
25 mg PO DAILY Qty: 0 0RF
aspirin 81 mg Tablet,Chewable
81 mg PO DAILY Qty: 0 0RF
acetaminophen [Tylenol] 325 mg Tablet
650 mg PO Q6HPRN PRN (Reason: MILD PAIN)
bisacodyl [Dulcolax (bisacodyl)] 10 mg Suppository
10 mg CO DAILYPRN PRN (Reason: constipation)
lidocaine 4 % Adhesive Patch,Medicated
2 patch TOPICAL DAILY
atorvastatin [Lipitor] 10 mg Tablet
10 mg PO QPM
pantoprazole [Protonix] 40 mg Tablet,Delayed Release (Dr/Ec)
40 mg PO DAILY
calcium carbonate [Tums] 200 mg calcium (500 mg) Tablet,Chewable
200 mg PO Q6HPRN PRN (Reason: gerd)
docusate sodium [Colace] 100 mg Capsule
100 mg PO BID
estradiol [Estrace] 0.01 % (0.1 mg/gram) Cream
1 appful VAGINAL HS
BenGay Gel
1 ea TOPICAL TID
heparin (porcine) 5,000 unit/mL Syringe
5,000 unit SC Q8H
dextromethorphan-guaifenesin [Robafen DM Cough-Chest Congest] 10-100 mg/5 mL syrup
10 ml PO Q4HPRN PRN (Reason: cough)
Referrals:
Bailey Salmeron MD [Family Provider, Internal Medicine]
Activity Restrictions/Additional Instructions:
Leg heaviness, swelling
Return immediately for motor weakness of any kind, worsening symptoms, vomiting, shortness of breath or any other concerns. Please see your doctor tomorrow for follow-up and reevaluation
Interventions
Interventions:
*Risk Screen - Suicide Last Done: 12/04/24 07:31
*General Assessment Last Done: 12/04/24 07:31
*Neglect/Abuse Screening Last Done: 12/04/24 07:31
*Nursing Disposition Last Done: 12/04/24 13:52
ED- Neurological Assessment Last Done: 12/04/24 09:01
Discharge Date and Time
Discharge Date/Time: 12/04/24 13:53
Print Language: LAO
== END 2024-12-04 13:53 ==
LOC: EMR 07:30
PROVIDERS: EMERGENCY PHYSICIAN Emergency Medicine; FAMILY PHYSICIAN Internal Medicine
DX: R07.89 Other chest pain (principal); R20.8 Other disturbances of skin sensation; R22.43 Localized swelling, mass and lump, lower limb, bilateral; R55 Syncope and collapse; I10 Essential (primary) hypertension; E78.00 Pure hypercholesterolemia, unspecified; Z88.0 Allergy status to penicillin; Z88.2 Allergy status to sulfonamides; Z86.74 Personal history of sudden cardiac arrest
CPT/HCPCS: 96374; 99285; 70450; 80053; 84484; 85025; 93005; 93971

== ENCOUNTER 2025-01-10 16:01 | Inpatient (IN) | payer OTHER, SELFPAY ==
[2025-01-10] VITALS (18 sets, daily range): BP systolic 122–167; BP diastolic 54–83; BMI 29.7; BMI 29.1
[2025-01-10] MEDS: NITROSTAT (SUBLINGUAL) 0.4 MG SL (11:48)
[2025-01-10] MEDS: HEPARIN 4000 UNITS IV (11:48)
[2025-01-10] MEDS: LOW STRENGTH ASPIRIN 324 MG PO (11:50)
[2025-01-10 12:10] LABS: Hematocrit 37.2 % (37.0-47.0); Hemoglobin 13.0 g/dL (12.0-16.0); Mean Corp Hgb Conc. 34.9 g/dL (33.0-37.0); Mean Corpuscular Volume 87.1 fL (81.0-99.0); Nucleated Red Blood Cells % 0 %; Platelet Count 422 10^3/uL (130-400); Red Cell Dist. Width 13.0 % (11.5-14.5)
[2025-01-10 12:20] LABS: INR 1.25; PT 16.0 Sec (11.4-14.6)
[2025-01-10 12:35] LABS: APTT > 200.0 Sec (23.4-35.0)
[2025-01-10 12:42] LABS: Troponin I < 0.012 ng/ml
--- NOTE | 2025-01-10 13:08 | ED.GENMED ---
History of Present Illness
General
Chief Complaint: Breathing Problem
Source: patient and records
Exam Limitations: none
Time Seen by Provider: 01/10/25 11:25
Nursing documentation reviewed up to this point in time: agreed with
History of Present Illness
History of Present Illness:
79-year-old female with a past medical history as documented presents to the ER for evaluation of nausea and weakness, shortness of breath. She also reports chest pain and shoulder pain although it sounds like these are chronic issues. Notably,
patient had a recent complicated admission 11/27/24 presented with headache and was admitted; she was seen in consultation with neurology and had cardiac arrest shortly after nerve block performed. She was intubated and admitted to the ICU ultimately
extubated and after hospitalization was sent to [facility] for another week before returning home�discharged from rehab 12/11/2024.
She is here today from home for evaluation of shortness of breath, weakness and nausea. She reports that the symptoms have been intermittent over the past month. Her neighbor is at bedside and provides some collateral history�her neighbor
describes the patient has 'episodes' where she becomes pale, lightheaded and short of breath that had intermittently occurred since returning home from rehab. Patient says that this morning symptoms rather severe which prompted ER visit. Aside
from feeling very weak and having nausea and dyspnea she also reports chest pain and shoulder pain. She is very clear however that chest and shoulder pain have been constant and are positional and she attributes this pain to chest compression she
received while hospitalized�she says that symptoms have been constant since that episode. She denies any recent fever. She has had mild cough recently. Despite nausea has not had vomiting or diarrhea she says. Mild discomfort in the epigastrium.
She denies any other acute complaints today.
Past History
Past History
ED Past Medical History: HTN, Hypercholesterolemia, Other (Arthritis , headaches, difficulty with balance, neck pain) and Other (Diverticulosis, proctitis, internal hemorrhoids); Negative CAD, Cancer or COPD
ED Past Surgical History: Gynecological (D&C ) and Other (Left eyelid surgery)
Patient has exhibited threatening behavior?: No
PSI?: No
Social History
Tobacco: Non-smoker
Alcohol: None
Drug: None
Personal:
Living: alone
Employment: Retired
Family History
Family History: Other (Uncontributory)
Review of Systems
Review of Systems
All Other Systems: ROS reviewed and negative except as documented in HPI and ROS
Constitutional: Reports fatigue; Denies fever
Respiratory: Reports cough and trouble breathing
Cardiac: Reports chest pain; Denies palpitations
ABD/GI: Reports abdominal pain and nausea; Denies vomiting or diarrhea
: Denies flank pain
Musculoskeletal: Denies neck pain or back pain
Neurological: Denies dizzy or headache
Phy Exam
Physical Exam
Physical Exam:
General: Awake, alert, oriented x3; anxious appearing
Head: Normocephalic, atraumatic
Eyes: Conjunctiva normal, sclera anicteric, pupils equal round and reactive to light bilaterally
Throat: Airway intact, handling secretions
Neck: Trachea midline, supple without meningismus
Lungs: Clear to auscultation bilaterally, no wheezing, rales, rhonchi
Heart: Regular rate and rhythm, no murmurs, gallops, or rubs; mild parasternal tenderness
Abd: Soft, non distended, nontender
Neuro: Grossly intact
Extremities: No edema in extremities, no calf tenderness, equal pulses in all extremities
Scores
Heart Failure Risk
Heart Failure Risk Score: Not Applicable
Heart Score for Chest Pain Patients
STEMI patient?: No
History: Moderately Suspicious
ECG: Significant ST-Depression
Age: >/= 65 years
Risk Factors: >/= 3 Risk Factors or History of CAD
Troponin: </= Normal Limit
Heart Score for Chest Pain Patients: 7
Heart Score Risk: 72.7 % MACE over next 6 weeks
Withdrawal Assessment of Alcohol
Withdrawal Assessment Completed?: Not applicable
Course
Orders/Labs/Results
Orders:
Orders
01/10/25 11:15
EKG [Electrocardiogram (*1)] Urgent
Reason for Study: Shortness of Breath
EKG- Treatment ONCE
01/10/25 11:29
CR Chest - 2 Views Urgent
Comment:
Reason For Exam: chest pain
01/10/25 11:31
EKG [Electrocardiogram (*1)] Urgent
Reason for Study: Chest Pain
EKG- Treatment ONCE
01/10/25 11:34
Aspirin Chewable [Low Strength Aspirin] 324 mg PO NOW STA
01/10/25 11:37
Heparin 4,000 units IV NOW STA
Pharmacy Request to Place See Dose Instructions PO NOW STA
Discontinue all Active Warfarin orders?: Yes
Nursing to Place Non Medication Order As Directed
Physician Order: PTT 6 hours after initial start of Heparin infusion
01/10/25 11:40
Nitroglycerin Sublingual [Nitrostat (Sublingual)] 0.4 mg SL NOW STA
01/10/25 11:45
Heparin 83143 Units/250 ml 25,000 units in 250 ml IV PER PROTOCOL
Weight to be used for heparin protocol in kilograms (kg):: 70
Protocol:: Cardiac Tx/Acute Coronary
PTT Goal Range to be used:: PTT 73 to 111 seconds
Order type:: Initial
INITIAL Infusion Dose (UNITS/KG/hr) & then follow protocol:: 12 units/kg/hr
Infusion Dose in UNITS/hr & then follow protocol (UNITS/hr):: 850
INFUSION RATE in mL/hr & then follow protocol (mL/hr):: 8.5
PTT less than or equal to 64 seconds:: Increase rate by 200 units/hr (+ 2 mL/hr)
PTT 64.1 to 72.9 seconds:: Increase rate by 100 units/hr (+ 1 mL/hr)
PTT 73 to 111 seconds:: Target Range. No change in rate.
PTT 111.1 to 130.9 seconds:: Decrease rate by 100 units/hr (- 1 mL/hr)
PTT 131 to 199.9 seconds:: HOLD for 1 hr. Then decrease rate by 200 units/hr (- 2 mL/hr)
PTT greater than or equal to 200 seconds:: HOLD for 2 hrs & Notify Provider. Then decrease by 200 units/hr (-
2 mL/hr)
Lab follow-up:: Each change, PTT q6h until 2 consecutive are therapeutic. Then PTT
daily.
01/10/25 11:59
Complete Blood Count/With Diff Urgent
PTT Urgent
Prothrombin Time Urgent
Troponin I Urgent
01/10/25 12:[address] See Dose Instructions IV DIRECTED
01/10/25 13:04
Comprehensive Metabolic Panel Urgent
01/10/25 13:24
CT Abd/pel Without Iv Or Oral Urgent
Comment:
Reason For Exam: abd pain, N/V
01/10/25 13:32
Electrocardiogram (*1) Urgent
Reason for Study: Chest Pain
EKG- Treatment ONCE
01/10/25 14:13
Aspirin Chewable [Low Strength Aspirin] 324 mg .ROUTE .STK-MED ONE
Heparin 5,000 units .ROUTE .STK-MED ONE
01/10/25 14:30
PTT Urgent
01/10/25 14:36
Ondansetron Injectable [Zofran] 4 mg IV NOW STA
01/10/25 15:00
Troponin I Urgent
Abnormal Lab Results
01/10/25 01/10/25
11:59 13:04
Plt Count 422 H 10^3/uL
(130-400)
PT 16.0 H Sec
(11.4-14.6)
APTT > 200.0 H* Sec
(23.4-35.0)
Sodium 132 L mmol/L
(135-145)
Creatinine 0.5 L mg/dL
(0.6-1.0)
01/10/25 11:59
01/10/25 13:04
Vital Signs
Initial and Last Documented VS:
Initial Vital Signs
Temp Pulse Resp BP Pulse Ox
36.8 C 74 18 167/83 99
01/10/25 11:15 01/10/25 11:15 01/10/25 11:15 01/10/25 11:15 01/10/25 11:15
Last Documented Vital Signs
Temp Pulse Resp BP Pulse Ox
36.8 C 62 28 147/72 97
01/10/25 11:15 01/10/25 12:15 01/10/25 11:28 01/10/25 12:10 01/10/25 13:08
MDM/Problems Addressed
Differential Diagnosis Includes:
Pneumonia, ACS, pericarditis, anemia, pancreatitis, cholelithiasis, cholecystitis, gastritis, PE, anxiety
MDM/Problems Addressed:
79-year-old female with history as documented in recent complicated hospitalization as noted above presents for evaluation of weakness, nausea, dyspnea intermittently over the past month worse this morning. She has also had chronic chest and
shoulder pain since receiving chest compressions after cardiac arrest last month. Her vital signs were significant for hypertension but no hypoxia, no fever, no tachycardia. Her triage EKG was concerning for ST elevations in the inferior leads
with ST and T wave abnormalities laterally. Initially STEMI alert activated and patient brought back to room immediately and interviewed�after discussing case at length with interventional cardiology, EKG borderline for STEMI�recommended canceling
STEMI alert for now, proceeding with ACS protocols including aspirin, heparin, nitroglycerin, serial EKGs. Usual labs sent off including troponins. Will also check chest x-ray and CT abdomen.
After ACS meds as above no change in symptoms. Serial EKGs essentially stable. Discussed with interventional cardiology continue with medical management, follow-up on labs and workup. Likely plan for cardiac catheterization urgent for ischemic
EKG that does not quite meet STEMI criteria. Recommended hospitalist admission--will discuss with hospitalist pending rest of workup here.
Initial labs reviewed: CBC shows no clinically significant abnormalities. Chemistry pending. Troponin undetectable initially. Certainly will need to trend this number. Chest x-ray reviewed by me shows no acute disease. Continue to monitor.
CT reviewed by me no clear acute pathology�final radiology report pending. Clinical reassessment symptoms stable still complains of nausea and weakness. Treatment for him for nausea. Serial EKG shows no significant change from initial. 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 Case discussed with hospitalist for admission at this point for continued management.
Chronic conditions affecting care:
Hypertension, hyperlipidemia, prior cardiac arrest
*Radiology
Radiology exam reviewed: preliminary read by ED provider and radiology read reviewed
*Pulse Oximetry
SaO2: 97
Oxygen Mode of Delivery: Room air
Patient hypoxic: no (97%)
*EKG
Interpreted by ED Provider?: Yes
Heart Rate: 62
Rate: normal
Rhythm: sinus
[place]: normal axis
Interval: normal interval
QRS Pattern: normal QRS
Ischemia: ST elevation (Inferior ST elevation, lateral ST and T wave abnormalities)
*Critical Care Note
Total Time (30-74mins, 75-104mins- exclusive of procedures): 39
comment:
Critical care statement: A total of 39 minutes of critical care time was provided for this patient. This includes management of unstable vital signs, evaluation of the patient at bedside, frequent reassessment, discussion with
consultants/hospitalist, and review of pertinent medical records. This time was separate from time utilized to perform any aforementioned documented procedures
Data Reviewed
Review of Other/Old Records Reveals: Labs, Records, Radiology Studies, Testing and Discharge Summary
Source: patient, records and other (neighbor)
Patient Management
Discussion with other providers: Hospitalist (Discussed with hospitalist) and [employer] Engineer (Discussed at length with poultry farm laborer)
Escalation/DeEscalation of care consider admission/obs:
Admission indicated
ED Attending Note
-
Portions of this chart may have been created with voice recognition software.� Occasional wrong word or��sound alike� substitutions may have occurred due to the inherent limitations of voice recognition software.
Discharge Plan
Departure
Patient Disposition: Admit
Date of Disposition: 01/10/25
Time of Disposition: 14:39
Admit to doctor: Anmol
Presentation/result/management discussed w/ accepting MD/DO: Hospitalist
Discharge Problem:
ACS (acute coronary syndrome)
Prescriptions:
No Action
gabapentin 100 MG capsule
100 mg PO HS
cholecalciferol (vitamin D3) [Vitamin D3] 50 mcg (2,000 unit) Tablet
50 mcg PO DAILY
aspirin 81 mg Tablet,Chewable
81 mg PO DAILY Qty: 0 0RF
acetaminophen [Tylenol] 325 mg Tablet
650 mg PO Q6HPRN PRN (Reason: MILD PAIN)
atorvastatin [Lipitor] 10 mg Tablet
10 mg PO QPM
calcium carbonate [Tums] 200 mg calcium (500 mg) Tablet,Chewable
200 mg PO Q6HPRN PRN (Reason: gerd)
docusate sodium [Colace] 100 mg Capsule
100 mg PO BID
estradiol [Estrace] 0.01 % (0.1 mg/gram) Cream
1 appful VAGINAL HS
dextromethorphan-guaifenesin 10-100 mg/5 mL Syrup
10 ml PO Q4HPRN PRN (Reason: cough) 30 Days Qty: 100 0RF
acetaminophen 325 mg Tablet
650 mg PO Q4HPRN PRN (Reason: Mild Pain) 30 Days Qty: 100 0RF
tramadol 50 mg Tablet
25 mg PO Q6HPRN PRN (Reason: moderate pain) 5 Days Qty: 20 0RF
metoprolol succinate 25 mg Tablet Extended Release 24 Hr
12.5 mg PO DAILY 30 Days Qty: 15 0RF
clopidogrel 75 mg Tablet
75 mg PO DAILY 30 Days Qty: 30 0RF
lidocaine 4 % Adhesive Patch,Medicated
1 patch TOPICAL DAILY Qty: 0 0RF
Referrals:
UNKNOWN - PT NOT,INTERVIEWE [Family Provider]
Interventions
Interventions:
*Risk Screen - Suicide Last Done: 01/10/25 11:15
*General Assessment Last Done: 01/10/25 11:35
*Neglect/Abuse Screening Last Done: 01/10/25 11:15
ED- Cardiac Assessment Last Done: 01/10/25 11:32
Discharge Date and Time
Print Language: GUYANESE
[2025-01-10 13:34] LABS: ALT (SGPT) 13 U/L (0-35); AST (SGOT) 20 U/L (14-36); Albumin 4.5 g/dl (3.5-5.0); Alkaline Phosphatase 73 U/L (38-126); Blood Urea Nitrogen 7 mg/dl (7-17); Calcium 9.7 mg/dl (8.4-10.2); Carbon Dioxide 23 mmol/L (22-30); Chloride 101 mmol/L (98-107); Estimated Creatinine Clearance 65 ml/min; Glucose 97 mg/dl (70-99); Potassium 4.1 mmol/L (3.5-5.1); Sodium 132 mmol/L (135-145); Total Protein 7.3 g/dl (6.3-8.2); eGFR > 60.00
[2025-01-10] MEDS: ZOFRAN 4 MG IV (14:38)
--- NOTE | 2025-01-10 14:44 | HPS.HSE ---
Family Physician
-
Family Physician: INTERVIEWE UNKNOWN - PT NOT
Chief Complaint
-
Generalized fatigue, nausea
History of Present Illness
Patient is an 79-year-old female with PMH of PEA cardiac arrest,�GERD, migraine headaches, hypertension, chronic hyponatremia, diverticular disease, peripheral neuropathy, thyroid nodule, was recently admitted to the hospital on November 27 and
discharged on December 02 with headache but developed PEA cardiac arrest after medical block with lidocaine.
Eventually discharged to [facility] on December 11.
Since discharge patient was having musculoskeletal chest pain secondary to chest compression along with chronic back pain between shoulder plate.
Patient was having weakness, decreased oral intake, nausea but no vomiting, yesterday she developed episodes of coughing fits.
In the ER patient initial blood work unremarkable but EKG shows ST changes in inferior leads, chemical analytical sampler contacted, no evidence of STEMI but should be treated as non-STEMI.
Patient be admitted to IVU and start heparin drip.
Medical History
Past Medical History
Past Medical History: Reports Other
Additional Past Medical History:
GERD / Gastritis
Migraine Headaches
Hypertension
Chronic Hyponatremia
Diverticular Disease
Peripheral Neuropathy
Thyroid Nodule
Past Surgical History: Reports Other
Additional Past Surgical History:
Cataracts
D&C
Blepharoplasty
L KARUNA
Social History
Tobacco: Former Smoker
Alcohol: None
Drug: None
Family History
Family History: Not pertinent
Allergies / Home Medications
Allergies reflects when Allergies were last updated in [facility] [employer].
Home Medications with original date entered in [facility] [employer]
Allergy/Medication List:
Allergies
Allergy/AdvReac Type Severity Reaction Status Date / Time
bupivacaine Allergy cardiac Verified 01/10/25 11:15
arrest
Cephalosporins Allergy Nausea Verified 01/10/25 11:15
methylprednisolone (From Allergy facial Verified 01/10/25 11:15
Medrol) flushing
nitrofurantoin (From Allergy Hives/WELTS Verified 01/10/25 11:15
Macrobid)
oxycodone Allergy made her Verified 01/10/25 11:15
feel
lightheaded
penicillin G Allergy Rash, Verified 01/10/25 11:15
itching,
syncope
Penicillins Allergy Rash, Verified 01/10/25 11:15
itching,
syncope
Sulfa (Sulfonamide Allergy Burning Verified 01/10/25 11:15
Antibiotics) sensation,
flushing
sulfamethoxazole (From Allergy Burning Verified 01/10/25 11:15
Bactrim) sensation,
flushing
trimethoprim (From Bactrim) Allergy Burning Verified 01/10/25 11:15
sensation,
flushing
Home Medications
gabapentin 100 mg capsule 100 mg PO HS 10/25/20
cholecalciferol (vitamin D3) 50 mcg (2,000 unit) tablet (Vitamin D3) 50 mcg PO DAILY Supplement 02/11/23
aspirin 81 mg chewable tablet 81 mg PO DAILY Blood clot prevention/tx #0 tabs 12/01/24
acetaminophen 325 mg tablet (Tylenol) 650 mg PO Q6HPRN PRN MILD PAIN 12/04/24
atorvastatin 10 mg tablet (Lipitor) 10 mg PO QPM 12/04/24
calcium carbonate (Tums) 200 mg PO Q6HPRN PRN gerd 12/04/24
docusate sodium 100 mg capsule (Colace) 100 mg PO BID 12/04/24
estradiol 0.01% (0.1 mg/gram) vaginal cream (Estrace) 1 appful vaginal HS 12/04/24
acetaminophen 325 mg tablet 650 mg (2 x 325 mg) PO Q4HPRN PRN Mild Pain 30 days #100 tabs 12/10/24
clopidogrel 75 mg tablet 75 mg PO DAILY Heart disease/condition 30 days #30 tabs 12/10/24
dextromethorphan-guaifenesin 10 mg-100 mg/5 mL oral syrup 10 ml PO Q4HPRN PRN cough 30 days #100 mL 12/10/24
lidocaine 4 % topical patch 1 patch topical DAILY chest #0 ea 12/10/24
metoprolol succinate 25 mg tablet,extended release 24 hr 12.5 mg (1/2 x 25 mg) PO DAILY Blood pressure 30 days #15 tabs 12/10/24
tramadol 50 mg tablet 25 mg (1/2 x 50 mg) PO Q6HPRN PRN moderate pain 5 days #20 tabs 12/10/24
Review of Systems
-
A 12 point ROS was completed and negative except as noted: Yes
Constitutional: Reports Fatigue; Denies Fever, Weight Gain, Weight Loss or Sleep Disturbance
EENT: Reports Sore Throat; Denies Tearing, Mouth Pain, Mouth Swelling or Runny Nose
Respiratory: Reports Cough; Denies Hemoptysis or Trouble Breathing
Cardiac: Denies Chest Pain, Diaphoresis, Palpitations or Syncope
Abdomen/GI: Reports Nausea; Denies Abdominal Pain, Vomiting, Diarrhea, Constipated, Bloody Stools or Black Stools
: Denies Dysuria, Frequency, Flank Pain, Incontinence, Difficulty Voiding, Urgency, Bleeding or Dark Urine
Musculoskeletal: Denies Joint Pain, Joint Swelling, Muscle Pain, Muscle Stiffness or Edema
Skin: Denies Itching or Rash
Neurological: Denies Dizzy, Headache, Weakness or Numbness
Endocrine: Denies Polyuria, Polydipsia or Temp Intolerance
Hematologic/Lymphatic: Denies Bleeding, Swollen Glands or Bruising
Psych: Reports Calm; Denies Depression, Anxiety or Panic Disorder
Physical Exam
Vital Signs
Vital Signs
Temp Pulse Resp BP Pulse Ox
98.3 F 62 28 147/72 97
01/10/25 11:15 01/10/25 12:15 01/10/25 11:28 01/10/25 12:10 01/10/25 13:08
Physical Exam
General: Well Developed, Well Nourished, No Apparent Distress, Comfortable and Good Appetite; No Pain, Chills or Sweats
HEENT: NormoCephalic, Moist mucous membranes, Atraumatic, Good Dentition, PERRLA, Nose Appears Normal and Ears Appear Normal
Respiratory: Clear
Cardiac: S1/S2 and Regular Rhythm
Breast: Deferred by me
GI: Soft, Non Tender, Non Distended and Normal Bowel Sounds
Genito-urinary: Deferred by me
Musculoskeletal: No Clubbing, No Cyanosis and Edema, Left Upper Extremity
Skin: Warm; No Rash, Jaundice, Ulcers, Lesions or Decubitus Ulcers
Neuro: Awake, Alert, Oriented, AO x 3, No Motor Deficits, Nonfocal/grossly intact and Cranial Nerves Intact
Hematologic/Lymphatic: No Lymphadenopathy
Psych: Calm
Laboratory Results
-
01/10/25 11:59
01/10/25 13:04
Laboratory Results
PT 16.0 Sec (11.4-14.6) H 01/10/25 11:59
INR 1.25 01/10/25 11:59
APTT > 200.0 Sec (23.4-35.0) H* 01/10/25 11:59
Total Bilirubin 0.6 mg/dl (0.2-1.3) 01/10/25 13:04
AST 20 U/L (14-36) 01/10/25 13:04
ALT 13 U/L (0-35) 01/10/25 13:04
Alkaline Phosphatase 73 U/L (38-126) 01/10/25 13:04
Troponin I < 0.012 ng/ml 01/10/25 11:59
Data Reviewed
-
Diagnostic Radiology: Report Reviewed by me
CT Scan: Report Reviewed by me
Medical Tests (Nuc Med, Echo, EKG etc): Report Reviewed by me
Lab Data: Labs Reviewed by me
Old Records: Reviewed
Impression/Plan
-
Impression:
Patient is an 79-year-old female with PMH of PEA cardiac arrest,�GERD, migraine headaches, hypertension, chronic hyponatremia, diverticular disease, peripheral neuropathy, thyroid nodule, was recently admitted to the hospital on November 27 and
discharged on December 02 with headache but developed PEA cardiac arrest after medical block with lidocaine.
Eventually discharged to [facility] on December 11.
Since discharge patient was having musculoskeletal chest pain secondary to chest compression along with chronic back pain between shoulder plate.
Patient was having weakness, decreased oral intake, nausea but no vomiting, yesterday she developed episodes of coughing fits.
In the ER patient initial blood work unremarkable but EKG shows ST changes in inferior leads, chemical analytical sampler contacted, no evidence of STEMI but should be treated as non-STEMI.
Patient be admitted to IVU and start heparin drip.
Assessment/plan:
Acute coronary syndrome
Negative troponin.
Patient with musculoskeletal mild chest pain since cardiac arrest and CPR on november 2024
Associated with pain between shoulder blades.
EKG shows inferior leads ischemic changes but not STEMI.
Reviewed by interventional radiologist Dr.Hetal Siu who saw the patient in the ER and recommended to start Heparin drip.
No need for urgent cath as of now, may require elective cardiac cath unless developed chest pain.
Continue to monitor troponin.
Aspirin/Plavix/statin
Echo 11/28
Normal left ventricular chamber size. Mild septal hypertrophy. Mildly reduced
left ventricular systolic function. There is mid anteroseptal, mid anterior,
mid lateral, and apical akinesis. Estimated left ventricular ejection fraction
is 45% by Torres's method of discs. Stage II diastolic dysfunction suggestive
of abnormal relaxation and increased filling pressures.
Cardiac arrest, PEA arrest after lidocaine injection
Patient was started on Plavix last admission secondary to elevated troponin after cardiac arrest.
Did not underwent cardiac cath.
Continue current treatment including metoprolol, aspirin/Plavix/statin
GERD.
s/p EGD 09/30/2024
GERD symptoms were better under control while on pantoprazole.
Currently since patient on Plavix pantoprazole switched to Nexium which is not helping as per the patient
Added Maalox.
Will discuss with cardiology if Plavix can be switched to Effient or Brilinta
Chronic pain.
Continue tramadol/lidocaine patch
Neuropathy.
Continue gabapentin
CODE STATUS: Full code
DVT prophylaxis: Heparin drip
Diet: Cardiac, NPO after midnight.
Total time spent on today's encounter was 75 minutes which included time spent in counseling the patient/family regarding diagnosis and treatment plan as listed above, goals of care, and symptom management. Case was discussed with nursing staff,
specialists, and care coordinators/case management. All labs and imaging personally reviewed by me. Remainder the time spent in detailed review of previous records, lab data, imaging, and other medical provider documentation.
[2025-01-10 15:42] LABS: APTT 43.6 Sec (23.4-35.0)
--- NOTE | 2025-01-10 15:54 | EDRN ---
1400hrs called pharmacy to acknowledge the heparin infusion order so it can be started. Jazmyn from pharmacy stated that since the PTT was >200 the infusion could not be started. Informed Jazmyn that the labs were obtained from the left hand after
heparin bolus was administered in the right hand. Ordered a repeat PTT at 1500hrs and the results indicated that the PTT is 43. Will confirm with Dr. Terry as to the initial infusion rate due to the protocol indicating to increase the infusion by
200 units per this result. Will start rate per Dr. Terry's orders and will document the rate.
[2025-01-10 16:02] LABS: Troponin I 0.015 ng/ml
[2025-01-10] MEDS: HEPARIN 25000 UNITS/250 ML IV (16:32)
--- NOTE | 2025-01-10 16:58 | CON.CAR ---
Consultation
Consultation Request
Date/Time Consultation Requested: 01/10/25
Date/Time Consultation Performed: 01/10/25
Requesting Provider: Dajuan OLSEN
Performing Provider: Bethany Siu
Reason for Consultation: Nausea/ECG changes
Medical History
-
Chief Complaint: Nausea and weakness
History of Present Illness:
79 year old female with With past medical history of chronic hyponatremia, peripheral polyneuropathy, GERD, hypertension, hyperlipidemia, moderate mitral regurgitation, atypical migraines, lightheadedness/dizziness, recent admission for
cardiopulmonary PEA arrest on November 27, 2024, unclear etiology after being admitted with headache and nausea undergoing nerve block, initial ECG showing ST segment elevation in the anterior leads with subsequently resolved thought to be may be
vasospastic, echocardiogram on November 28, 2024 with LVEF of 45% with mid anteroseptal, mid anterior, mid lateral and apical akinesis with generalized weakness not being able to do anything at home including physical therapy with ongoing nausea and
reduced appetite/p.o. intake. After her November admission where she underwent CPR she has been having on and off chest discomfort and shoulder pain which overall is improved since then. She was seen by outpatient cardiology at the end of November with
EKG showing nonspecific ST-T wave changes with T wave inversions in lateral leads concerning for possible ischemia with outpatient troponins negative. There is no associated fevers or chills, no diarrhea or abdominal pain. Off-and-on she has had
constipation. She denies any new chest pain, dyspnea, palpitations, syncope, orthopnea or PND. No lower extremity edema.
Past Medical History
Past Medical History: GERD, HTN, Hypercholesterolemia and Valvular Disease
Past Surgical History: None
Social History
Tobacco: Non-Smoker
Alcohol: Occasional
Drug: None
Personal:
Living: With Family
Employment: Retired
Family History
Family History: Reviewed & Not Pertinent
Allergies / Home Medications
Allergy/AdvReac Type Severity Reaction Status Date / Time
bupivacaine Allergy cardiac Verified 01/10/25 11:15
arrest
Cephalosporins Allergy Nausea Verified 01/10/25 11:15
methylprednisolone (From Allergy facial Verified 01/10/25 11:15
Medrol) flushing
nitrofurantoin (From Allergy Hives/WELTS Verified 01/10/25 11:15
Macrobid)
oxycodone Allergy made her Verified 01/10/25 11:15
feel
lightheaded
penicillin G Allergy Rash, Verified 01/10/25 11:15
itching,
syncope
Penicillins Allergy Rash, Verified 01/10/25 11:15
itching,
syncope
Sulfa (Sulfonamide Allergy Burning Verified 01/10/25 11:15
Antibiotics) sensation,
flushing
sulfamethoxazole (From Allergy Burning Verified 01/10/25 11:15
Bactrim) sensation,
flushing
trimethoprim (From Bactrim) Allergy Burning Verified 01/10/25 11:15
sensation,
flushing
�Medication �Instructions �Recorded �Confirmed �Type
gabapentin 100 mg capsule 100 mg PO HS 10/25/20 01/10/25 History
cholecalciferol (vitamin D3) 50 50 mcg PO DAILY Supplement 02/11/23 01/10/25 History
mcg (2,000 unit) tablet (Vitamin
D3)
aspirin 81 mg chewable tablet 81 mg PO DAILY Blood clot 12/01/24 01/10/25 Rx
prevention/tx #0 tabs
atorvastatin 10 mg tablet (Lipitor) 10 mg PO QPM 12/04/24 01/10/25 History
calcium carbonate (Tums) 200 mg PO Q6HPRN PRN gerd 12/04/24 01/10/25 History
docusate sodium 100 mg capsule 100 mg PO DAILYPRN PRN constipation 12/04/24 01/10/25 History
(Colace)
estradiol 0.01% (0.1 mg/gram) 1 appful vaginal TUFR@2000 12/04/24 01/10/25 History
vaginal cream (Estrace)
clopidogrel 75 mg tablet 75 mg PO DAILY Heart 12/10/24 01/10/25 Rx
disease/condition 30 days #30 tabs
metoprolol succinate 25 mg 12.5 mg (1/2 x 25 mg) PO DAILY 12/10/24 01/10/25 Rx
tablet,extended release 24 hr Blood pressure 30 days #15 tabs
tramadol 50 mg tablet 25 mg (1/2 x 50 mg) PO Q6HPRN PRN 12/10/24 01/10/25 Rx
moderate pain 5 days #20 tabs
acetaminophen 500 mg tablet 1,000 mg PO DAILYPRN PRN mild pain 01/10/25 01/10/25 History
escitalopram oxalate 5 mg tablet 5 mg PO DAILY 01/10/25 01/10/25 History
esomeprazole magnesium 40 mg 40 mg PO DAILY 01/10/25 01/10/25 History
capsule,delayed release
lisinopril 10 mg tablet 10 mg PO DAILY 01/10/25 01/10/25 History
ondansetron HCl 8 mg tablet 8 mg PO Q8HPRN PRN nausea 01/10/25 01/10/25 History
polyethylene glycol 3350 17 gram 17 g PO DAILYPRN PRN constipation 01/10/25 01/10/25 History
oral powder packet
sennosides 8.6 mg tablet (senna) 8.6 mg PO DAILY PRN constipation 01/10/25 01/10/25 History
Review of Systems
-
All other systems: Negative unless noted
Physical Exam
Vital Signs
Temp Pulse Resp BP Pulse Ox
98.3 F 69 17 151/75 98
01/10/25 11:15 01/10/25 15:30 01/10/25 14:15 01/10/25 15:30 01/10/25 15:30
Lab Results
01/10/25 11:59
01/10/25 13:04
Troponin I 0.015 ng/ml D 01/10/25 15:25
Physical Exam
General: Well Developed, Well Nourished, No Apparent Distress and Comfortable
HEENT: Normocephalic and Moist Mucous Membranes
Respiratory: Clear; Negative Wheezes, Crackles or Rhonchi
Cardiac: S1/S2 and Regular Rhythm; Negative Murmur, Rub, Peripheral Edema or JVD
Breast: Deferred by me
GI: Soft, Non Tender, Non Distended and Normal Bowel Sounds
Musculoskeletal: No Clubbing and No Edema
Skin: Warm and Dry
Neuro: AO x 3 and Nonfocal/Grossly Intact
Impression / Plan
-
PCP: Dr. Bailey Salmeron
Card: Dr. JOSHUA Soria
Impression:
Here with Weakness and Nausea
Recent admission:admitted with MA and nausea 11/26/24
Cardiopulmonary arrest/PEA 11/27/24
Unclear etiology, potentially neurologically mediated
No malignant arrhythmias or significant pauses noted on telemetry while the event happened
Initially ECG demonstrated ST segment elevations in the anterior leads which subsequently resolved, possibly vasospastic
NSTEMI with ejection fraction of 45% with mid anteroseptal, mid anterior, mid lateral, and apical akinesis
Atypical migraines
Dizziness
Moderate mitral digitation
Dyspnea on exertion
Essential hypertension
Dyslipidemia
Peripheral polyneuropathy
Gastroesophageal reflux
Chronic hyponatremia
Echo 06/21/23 finds normal left ventricular systolic function ejection fraction of 55%, moderate mitral digitation, mild to moderate aortic insufficiency, mild tricuspid insufficiency.
Echo 11/28/2024: Ejection fraction 45%, mid anteroseptal, mid anterior, mid lateral, and apical akinesis, mild to moderate TR PA systolic of 40 mmHg
ECG November 2024: Deep T wave inversions in I, aVL, V4-V6. Biphasic T wavves in V2-V3, and lead II. There are non-specific ST segment deviation.�
ECG today at 11:53AM: Shows similar ST/T wave changes to November.��
Labs: reviewed. First trop <0.12, second 0.015
CT Chest/Abdo/Pelvis: No evidence of bowel obstruction. Moderate sigmoid diverticulosis without acute diverticulitis. No acute inflammatory process within the abdomen or pelvis. Mild colonic fecal burden. Small sliding hiatal hernia. No obstructive
uropathy. Tiny hepatic cysts. Small right renal cyst. Along the ventral margin of the lateral segment of the left lobe of the liver, there is a 7 mm low-attenuation structure not definitely seen previously. Too small to fully characterize. Possible
additional cyst. Recommend follow-up in 6 months.
Assessment/Plan:�
79 year old female with cardiovascular risk factors and presents with nonspecific presentation of nausea. Her chest pain has been only for 2 months and appears to be likely musculoskeletal. There is no current acute or other findings to suggest need
for urgent coronary angiography.�
Reccomendations:�
Continue to trend troponins
Repeat transthoracic echocardiogram given cardiomyopathy noted in November�with [facility]
Would recommend evaluation of causes of cardiomyopathy and rule out ischemic cause with coronary angiogram this admission if patient and family agreeable, possibly tomorrow depending on remainder of workup and her sxs.
If patient has new chest pain, or rapidly escalating troponins, we will plan for more urgent coronary angiography.
Aggressive risk factor control�
Evaluate cause for ongoing MSK chest/shoulder pain along with nausea and gen weakness--defer to primary team.
Discussed all of the above in detail with nursing at bedside, daughter at bedside and son over the phone along with the patient.
Bethany Siu MD, FAC, [facility]
Data Reviewed
-
EKG: Tracing Personally Visualized and interpreted
Radiology: Report Reviewed by me
CT Scan: Report Reviewed by me
Medical Tests (Nuc Med, Echo etc): Image Personally Visualized and interpreted and Report Reviewed by me
Labs: Labs Reviewed by me
Old Records: Reviewed
Total Time Spent with Patient (in minutes): 76
--- NOTE | 2025-01-10 18:27 | PTCARENOTE ---
received patient from ER, monitor placed NSR, VSS.patient c/o feeling nauseated when she got up from stretcher to scale and then to bed. IV heparin @ 850units/hr via right hand. able to ask patient admission questions, after being questioned
patient felt better and I ordered her some food for dinner. oriented to room and surroundings. daughter at bedside.
[2025-01-10] MEDS: COLACE PO (20:49)
[2025-01-10] MEDS: LIPITOR 10 MG PO (20:51)
[2025-01-10] MEDS: PEPCID 20 MG PO (20:51)
[2025-01-10] MEDS: NEURONTIN 100 MG PO (21:31)
[2025-01-10 21:49] LABS: Urine Character Clear (Clear)
[2025-01-10 22:02] LABS: Urine Squamous Cell >30 /LPF (Few)
[2025-01-10 22:03] LABS: APTT 75.7 Sec (23.4-35.0); Urine Red Blood Cell 0-2 /HPF (0-2)
[2025-01-10 22:14] LABS: Troponin I 0.012 ng/ml
[2025-01-11] VITALS (12 sets, daily range): BP systolic 111–146; BP diastolic 56–77; PULSE 58; O2SAT 97; BMI 29.0
--- NOTE | 2025-01-11 04:22 | PTCARENOTE ---
pt NSR on monitor. VSS. Denies SOB, pain or nausea. Heparin gtt per order. NPO after midnight. Pt ambulates with x 1 assist and RW. Call bailey w/in reach
[2025-01-11 04:35] LABS: APTT 100.6 Sec (23.4-35.0)
[2025-01-11 04:44] LABS: Hematocrit 36.3 % (37.0-47.0); Hemoglobin 12.4 g/dL (12.0-16.0); Mean Corp Hgb Conc. 34.2 g/dL (33.0-37.0); Mean Corpuscular Volume 89.9 fL (81.0-99.0); Platelet Count 418 10^3/uL (130-400); Red Cell Dist. Width 13.2 % (11.5-14.5)
[2025-01-11 04:50] LABS: ALT (SGPT) 12 U/L (0-35); AST (SGOT) 19 U/L (14-36); Albumin 4.2 g/dl (3.5-5.0); Alkaline Phosphatase 68 U/L (38-126); Blood Urea Nitrogen 5 mg/dl (7-17); Calcium 9.7 mg/dl (8.4-10.2); Carbon Dioxide 25 mmol/L (22-30); Chloride 102 mmol/L (98-107); Estimated Creatinine Clearance 66 ml/min; Glucose 89 mg/dl (70-99); Magnesium 2.0 mg/dl (1.6-2.3); Potassium 4.6 mmol/L (3.5-5.1); Sodium 132 mmol/L (135-145); Total Protein 6.5 g/dl (6.3-8.2); eGFR > 60.00
[2025-01-11 05:00] LABS: Troponin I < 0.012 ng/ml
[2025-01-11] MEDS: PLAVIX 75 MG PO (07:49)
[2025-01-11] MEDS: TOPROL XL 12.5 MG PO (07:49)
[2025-01-11] MEDS: PEPCID 20 MG PO ×2 (07:49→20:09)
[2025-01-11] MEDS: LOW STRENGTH ASPIRIN 81 MG PO (07:49)
[2025-01-11] MEDS: VITAMIN D3 (cholecalciferol) 50 MCG PO (07:49)
[2025-01-11] MEDS: COLACE PO (07:50)
--- NOTE | 2025-01-11 08:57 | W.PN.CARDCBS ---
Addendum entered and electronically signed by Jp Worley MD 01/11/25 12:29:
I saw and examined the patient.
The LIABILITY ANALYST or PA's note was reviewed and I agree with the note.
Comment: General: Well developed, well nourished in NAD.
Neck: Supple, no JVD, HJR, carotids +2 B/L, no bruits bilaterally.
Heart: Non displaced PMI, RRR, no murmurs, No S3, S4, no rubs.
Lungs: Clear to auscultation bilaterally, no wheeze, rhonchi, rubs bilaterally,
normal expiratory phase.
Extremities: No clubbing, cyanosis or edema bilaterally.
Neuro: Grossly nonfocal, awake, alert and oriented x3.
Troponins negative and echocardiogram normal. No active cardiac issues. Will sign off, call with questions.
Original Note:
Today's Communication / Plan
-
echo with nl EF and wall motion
cont risk factor modification
Impression / Plan
-
PCP: Dr. Bailey Salmeron
Card: Dr. JOSHUA Soria
Impression:
Admit 01/10/2025 with weakness and Nausea
Recent admission:admitted with MA and nausea 11/26/24
Cardiopulmonary arrest/PEA 11/27/24
Unclear etiology, potentially neurologically mediated
No malignant arrhythmias or significant pauses noted on telemetry while the event happened
Initially ECG demonstrated ST segment elevations in the anterior leads which subsequently resolved, possibly vasospastic
NSTEMI with ejection fraction of 45% with mid anteroseptal, mid anterior, mid lateral, and apical akinesis 11/2024
Atypical migraines
Dizziness
Moderate mitral regurgitation
Dyspnea on exertion
Essential hypertension
Dyslipidemia
Peripheral polyneuropathy
Gastroesophageal reflux
Chronic hyponatremia
Echo 06/21/23 finds normal left ventricular systolic function ejection fraction of 55%, moderate mitral digitation, mild to moderate aortic insufficiency, mild tricuspid insufficiency.
Echo 11/28/2024: Ejection fraction 45%, mid anteroseptal, mid anterior, mid lateral, and apical akinesis, mild to moderate TR PA systolic of 40 mmHg
Echo 01/11/2025: EF 55 to 60%, normal LV size, wall thickness, and systolic function. No regional wall motion abnormalities. Mild to moderate AI, mild to moderate MR
ECG November 2024: Deep T wave inversions in I, aVL, V4-V6. Biphasic T wavves in V2-V3, and lead II. There are non-specific ST segment deviation.�
ECG 01/10/2025 11:53AM: Shows similar ST/T wave changes to November.��
Labs: reviewed. First trop <0.012, second 0.015, < 0.012, <0.012
CT Chest/Abdo/Pelvis: No evidence of bowel obstruction. Moderate sigmoid diverticulosis without acute diverticulitis. No acute inflammatory process within the abdomen or pelvis. Mild colonic fecal burden. Small sliding hiatal hernia. No obstructive
uropathy. Tiny hepatic cysts. Small right renal cyst. Along the ventral margin of the lateral segment of the left lobe of the liver, there is a 7 mm low-attenuation structure not definitely seen previously. Too small to fully characterize. Possible
additional cyst. Recommend follow-up in 6 months.
Assessment/Plan:�
79 year old female with cardiovascular risk factors and presents with nonspecific presentation of nausea. Her chest pain has been only for 2 months and appears to be likely musculoskeletal. There is no current acute or other findings to suggest need
for urgent coronary angiography.�
Reccomendations:�
Troponin negative
Echo today 01/11/2025 with normal LV function and no wall motion abnormalities-improved
given negative troponins and nl LV fxn with improvement in WMAs, will not cath at this time.
pt denies CP
Previous concern for Takotsubo cardiomyopathy/vasospastic disease in November 2024 when diagnosed with non-ST elevation OR with troponin peak 3.6. Pt declined cath at that time and started on DAPT with ASA and Plavix.
Aggressive risk factor control� - Continue aspirin/Plavix, statin, BB
Telemetry personally reviewed: Normal sinus rhythm/SB 50-60s
Evaluate cause for ongoing MSK chest/shoulder pain along with nausea, dizziness and gen weakness--defer to primary team.
Progress Note - Oil Agent
Subjective
Date of Service: January 11, 2025
no CP
c/o dizziness with nausea
Objective
Labs:
01/11/25 03:52
01/11/25 03:52
Labs
Hgb 12.4 g/dL (12.0-16.0) 01/11/25 03:52
Hct 36.3 % (37.0-47.0) L 01/11/25 03:52
Plt Count 418 10^3/uL (130-400) H 01/11/25 03:52
PT 16.0 Sec (11.4-14.6) H 01/10/25 11:59
INR 1.25 01/10/25 11:59
APTT 100.6 Sec (23.4-35.0) H 01/11/25 03:52
Sodium 132 mmol/L (135-145) L 01/11/25 03:52
Potassium 4.6 mmol/L (3.5-5.1) 01/11/25 03:52
BUN 5 mg/dl (7-17) L 01/11/25 03:52
Creatinine 0.6 mg/dL (0.6-1.0) 01/11/25 03:52
Glucose 89 mg/dl (70-99) 01/11/25 03:52
Troponins
01/10/25 01/10/25 01/10/25
11:59 15:25 21:40
Troponin I < 0.012 0.015 D 0.012
01/11/25 01/11/25
00:20 03:52
Troponin I Cancelled < 0.012
Vital Signs and I&O:
Vital Signs
Temp Pulse Resp BP Pulse Ox
97.8 F 60 16 146/70 96
01/11/25 07:48 01/11/25 04:15 01/11/25 07:48 01/11/25 03:43 01/11/25 07:48
Vital Signs
Temp Pulse Resp BP Pulse Ox
97.8 F 60 16 146/70 96
01/11/25 07:48 01/11/25 04:15 01/11/25 07:48 01/11/25 03:43 01/11/25 07:48
Intake & Output
01/09/25 01/10/25 01/11/25 01/12/25
06:59 06:59 06:59 06:59
Intake Total 8.5 / 8.5
Output Total 200 / 200
Balance -191.5 / -191.5
Physical Exam
Physical Exam
GEN: No distress, awake, Ox3
HEENT: supple, anicteric, mmm, no carotid bruit
LUNGS: CTA, no wheezes/rales
CV: Reg, S1/S2,, no murmur
ABD: soft, BS+, NT/ND
EXT: No edema
NEURO: Gross non-focal
SKIN: No rash
--- NOTE | 2025-01-11 09:29 | VNURNOTE ---
Chart reviewed. Patient is current with [facility]. Will continue to follow hospital course and DC plans.
--- NOTE | 2025-01-11 09:30 | PTCARENOTE ---
Patient in chair, just finished working with PT and OT. reports feeling lightheaded, nausea, feeling hot, feeling shaky, fanning self. BP in chair 124/77, HR 47-60, POX 99% on room air. Patient reports episodes happening at home, does appear
anxious. Legs elevated in chair and assisted to bed, symptoms resolved
--- NOTE | 2025-01-11 10:11 | W.PN.HOSP.TC ---
Today's Communication/Plan
-
Resume Lexapro. pt is anxious
f/w cardiology recommendations
Assessment / Plan
Assessment / Plan
Physical Exam
General: No Apparent Distress, Comfortable. No Pain, Chills or Sweats
HEENT: Normocephalic, Moist mucous membranes, Atraumatic,
Respiratory: Clear
Cardiac: S1/S2
GI: Soft, Non Tender, Non Distended and Normal Bowel Sounds
Genito-urinary: No Kowalski.
Musculoskeletal: No Clubbing, No Cyanosis
Skin: Warm; No Rash, Jaundice
Neuro: Awake, Alert, Oriented, AO x 3, No Motor Deficits, Nonfocal/grossly intact and Cranial Nerves Intact
Psych: Calm
A/P
# Presented with nausea and weakness, shortness of breath
She denies chest pain or nausea
Reports one episode of SOB while moving last night
Negative troponin.
Plan for echocardiogram
Appreciate cardiology help
# History of Ambulatory dysfunction- c/w PT,OT.
# Essential HTN,
History of PEA arrest, NSTEMI vs Takotsubo cardiomyopathy with systolic dysfunction-
continue with Aspirin 81 mg daily, Plavix 75 mg daily, Metoprolol XL 12.5 mg daily. Monitor BP, HR, avoid hypotension.
# Hyperlipidemia- continue Atorvastatin 10 mg daily.
# Chronic Anemia-
# Hx of Peripheral neuropathy- continue with Gabapentin 100 mg at HS. Monitor.
# chronic Hyponatremia, metabolic acidosis
# GERD, hiatal hernia, GI prophylaxis- continue with Pepcid
I reached out to Dr Hudson, she reported that patient has a chronic sore throat/bloating and nausea. She was fine with Pepcid. Apparently PPI was stopped due to potential interaction with Plavix.
# History of Atypical migraine- continue with Tylenol 650 mg Q 4 hr as needed.
# Osteopenia, Vitamin D def- continue with daily vitamin D supplement.
# Hearing loss- uses hearing aid.
# Thyroid nodule- OP PCP follow up.
# Anxiety-
Resume her home medication with Lexapro
Total time spent to see the patient, examine the patient, review data and lab result, discuss treatment plan with patient, nursing staff around 55 minutes
Anticipated Discharge: 24 - 48 hours
Subjective/Interval History
-
Date of Service: January 11, 2025
Objective Data
-
Labs:
Laboratory Results
01/11/25
03:52
WBC 7.9
Hgb 12.4
Hct 36.3 L
Plt Count 418 H
APTT 100.6 H
Sodium 132 L
Potassium 4.6
Chloride 102
Carbon Dioxide 25
BUN 5 L
Creatinine 0.6
Glucose 89
Calcium 9.7
Total Bilirubin 0.6
AST 19
ALT 12
Alkaline Phosphatase 68
Vital Signs:
Vital Signs
Temp Pulse Resp BP Pulse Ox
97.8 F 60 16 146/70 96
01/11/25 07:48 01/11/25 04:15 01/11/25 07:48 01/11/25 03:43 01/11/25 07:48
I&O
01/10/25 01/11/25 01/12/25
06:59 06:59 06:59
Intake Total 8.5 / 8.5
Output Total 200 / 200
Balance -191.5 / -191.5
--- NOTE | 2025-01-11 11:24 | PTCARENOTE ---
Heparin gtt discontinued and diet placed. Patient in chair, call bailey in reach.
[2025-01-11] MEDS: LEXAPRO 5 MG PO (12:35)
[2025-01-11] MEDS: TYLENOL 650 MG PO ×2 (12:35→17:22)
--- NOTE | 2025-01-11 16:13 | CM ---
spoke to pt and son in room, she lives alone in a ranch home with 13 steps to enter. she has a cane to use if needed. she tells me that she feeks weak . PT is recommending [facility]. pt spoke to family and [facility] are [facility] [place]. shewould like critical [facility] hospital[facility] referral sent as she is current and they can go [facility].
[2025-01-11] MEDS: LIPITOR 10 MG PO (17:22)
[2025-01-11] MEDS: COLACE 100 MG PO (20:09)
[2025-01-11] MEDS: NEURONTIN 100 MG PO (22:16)
--- NOTE | 2025-01-11 23:24 | PTCARENOTE ---
Assumed care of patient at change of shift w/ pts son at bedside. Pt went on about c/o lightheadedness while laying in bed, generalized weakness, nausea, and intermittently having hot flashes. BP 135/67 and sating 96% RA. Occasionally SOB. Offered
to get pt an antinausea medication at which time pt refused. Placed pt on 2L of O2 briefly for comfort and encourage pt to perform deep breathing exercises. Patient reports the O2 did not improve her symptoms, and currently sating 98% RA. Patient
denies feeling anxious. Emotional support provided. Call bailey within reach, fall risk precautions maintained.
[2025-01-12] VITALS (14 sets, daily range): BP systolic 113–160; BP diastolic 63–82; PULSE 60–71; O2SAT 98
[2025-01-12 04:40] LABS: Glucose - Point of Care 96 mg/dl (70-99)
--- NOTE | 2025-01-12 05:17 | PTCARENOTE ---
Morning vitals obtained this AM, and pt states 'Somethings not right, I feel sick'. At this time pts laying in bed c/o lightheadedness, dizziness, weak, shaky and throat hurts. Pt reports she has a known thyroid nodule that she follows ENT Dr for,
and reports that the pain is usually worse in the morning. Patient swallows water w/out difficulty. No coughing noted post fluids. Altagracia Gatica [employer] T[employer] READINESS OFFICER aware, offered a lozenge and pt refused. Pt also reports the need to void. Obtained orthos which
showed Bp laying 160/68, sitting 157/74 and standing 132/80.Pt stood and pivoted to the BSC, symptoms remained the same. Blood sugar obtained w/ a result of 96. Patient back in bed, and reports dizziness is improving. Will pass along to day shift
RN. Call bailey within reach.
[2025-01-12] MEDS: LOW STRENGTH ASPIRIN 81 MG PO (08:27)
[2025-01-12] MEDS: TOPROL XL 12.5 MG PO (08:27)
[2025-01-12] MEDS: ZESTRIL 10 MG PO (08:28)
[2025-01-12] MEDS: PLAVIX 75 MG PO (08:28)
[2025-01-12] MEDS: VITAMIN D3 (cholecalciferol) 50 MCG PO (08:28)
[2025-01-12] MEDS: LEXAPRO 10 MG PO (08:28)
[2025-01-12] MEDS: COLACE 100 MG PO ×2 (08:28→20:12)
[2025-01-12] MEDS: PEPCID 20 MG PO ×2 (08:29→20:12)
--- NOTE | 2025-01-12 10:08 | W.PN.HOSP.TC ---
Today's Communication/Plan
-
refuses to discharge
She wants ENT evaluation, complains of worsening pain in right neck, will do CT study, consult ENT, known to DR Hudson
Transfer to telemetry floor, c/w PT
Assessment / Plan
Assessment / Plan
Physical Exam
General: No Apparent Distress, Comfortable. No Pain, Chills or Sweats
HEENT: Normocephalic, Moist mucous membranes, Atraumatic,
Respiratory: Clear
Cardiac: S1/S2
GI: Soft, Non Tender, Non Distended and Normal Bowel Sounds
Genito-urinary: No Kowalski.
Musculoskeletal: No Clubbing, No Cyanosis
Skin: Warm; No Rash, Jaundice
Neuro: Awake, Alert, Oriented, AO x 3, No Motor Deficits, Nonfocal/grossly intact and Cranial Nerves Intact
Psych: Calm
A/P
# Presented with nausea and weakness, shortness of breath
She denies chest pain or nausea although she admits to have chronic nausea
Reports weakness
Negative troponin.
Echo no changes, cardiology ok to discharge
Appreciate cardiology help
# History of Ambulatory dysfunction- c/w PT,OT.
# Essential HTN,
History of PEA arrest, NSTEMI vs Takotsubo cardiomyopathy with systolic dysfunction-
continue with Aspirin 81 mg daily, Plavix 75 mg daily, Lisinopril, Metoprolol XL 12.5 mg daily. Monitored BP, HR, avoid hypotension.
# Hyperlipidemia- continue Atorvastatin 10 mg daily.
# Chronic Anemia-
# Hx of Peripheral neuropathy- continue with Gabapentin 100 mg at HS. Monitor.
# chronic Hyponatremia, metabolic acidosis
# GERD, hiatal hernia, GI prophylaxis- continue with Pepcid
I reached out to Dr Hudson, she reported that patient has a chronic sore throat/bloating and nausea. She was fine with Pepcid. Apparently PPI was stopped due to potential interaction with Plavix.
Pt complains of pain in right neck, saying it is getting worse and refuses to leave hospital, asking for ENT evaluation, will repeat CT neck with contrast
# History of Atypical migraine- continue with Tylenol 650 mg Q 4 hr as needed.
# Osteopenia, Vitamin D def- continue with daily vitamin D supplement.
# Hearing loss- uses hearing aid.
# Thyroid nodule- OP PCP follow up.
# Anxiety-
She seems to have anxiety, started in OP setting on low dose Lexapro, I d/w pt this morning, will titrate up as tolerated.
Total time spent to see the patient, examine the patient, review data and lab result, discuss treatment plan with patient, nursing staff around 55 minutes
Anticipated Discharge: Within 24 hours
Subjective/Interval History
-
Date of Service: January 12, 2025
She complains of pain / sore throat
She complains of weakness, refuses to dc
Objective Data
-
Vital Signs:
Vital Signs
Temp Pulse Resp BP Pulse Ox
97.7 F 60 16 142/69 95
01/12/25 07:12 01/12/25 10:00 01/12/25 07:12 01/12/25 08:27 01/12/25 08:10
I&O
01/11/25 01/12/25 01/13/25
06:59 06:59 06:59
Intake Total 8.5 / 8.5 240 / 240
Output Total 200 / 200
Balance -191.5 / -191.5 240 / 240
--- NOTE | 2025-01-12 15:10 | W.PN.ENT ---
Today's Communication
-
F/u with ENT as outpatient for FFNPL
Impression / Plan
-
The patient is an 79 year old woman known to me for LPR. She was well controlled on a PPI but there was concern for interaction with plavix. The patient may need to take a combination of H2 manuela and OTC medication for her reflux. I will perform
her routine laryngoscopy in the office and discuss her medication further pending the results of her scope.
Subjective Data
-
The patient is an 79 year old woman with a long history of intermittent right-sided throat discomfort. She has had intermittent hoarseness as well. She is followed for laryngeal reflux. She has a history of inflammation of her lingual tonsils and
prior biopsy was negative for mass or lesion. She is concerned because her sore throat has worsened after stopping PPI in the hospital.
Objective Data
-
Vital Signs
Temp Pulse Resp BP Pulse Ox
98.4 F 66 16 129/68 95
01/13/25 04:32 01/13/25 04:32 01/12/25 22:26 01/13/25 04:30 01/13/25 04:32
Intake & Output
01/11/25 01/12/25 01/13/25
06:59 06:59 06:59
Intake:
Oral fluids 240 / 240 720 / 720
IV fluids (Total) 8.5 / 8.5
heparin 8.5 / 8.5
Output:
Urine, Voided 200 / 200
Other:
Number of approximated MODERATE 1 2 3
amounts of urine
Lab Results
01/11/25 03:52
01/11/25 03:52
PT 16.0 Sec (11.4-14.6) H 01/10/25 11:59
INR 1.25 01/10/25 11:59
APTT 100.6 Sec (23.4-35.0) H 01/11/25 03:52
Calcium 9.7 mg/dl (8.4-10.2) 01/11/25 03:52
Magnesium 2.0 mg/dl (1.6-2.3) 01/11/25 03:52
Total Bilirubin 0.6 mg/dl (0.2-1.3) 01/11/25 03:52
AST 19 U/L (14-36) 01/11/25 03:52
ALT 12 U/L (0-35) 01/11/25 03:52
Alkaline Phosphatase 68 U/L (38-126) 01/11/25 03:52
Urine Color Yellow 01/10/25 21:40
Urine Clarity Clear (Clear) 01/10/25 21:40
Urine pH 6.5 (5.0-9.0) 01/10/25 21:40
Ur Specific [place] 1.010 (<1.030) 01/10/25 21:40
Urine Ketones Negative (Negative) 01/10/25 21:40
Physical Exam
-
GEN: NAD, Alert and oriented
Hearing: Grossly decreased
OC/OP: No erythema or mass
Neck: No palpable LAD
Respiratory: No stridor
Patient declines FFNPL at the bedside at this time.
--- NOTE | 2025-01-12 15:19 | CM ---
Reviewed chart. Met with Mrs. Leiva and her son to review discharge plans. Family and patient would like to see if she would qualify for SNF/Rehab. Reviewed her cuurent functional level and medical team recommendations. Also reviewed the role
insurance play in the decision for SNF/ Rehab. If she needs SNF they would like to explore [facility]. Reviewed today therapy note. Family is agreeable to having her go to respite care at the [facility] in [facility]. Telephone call to Mahnaz
the [facility] assisted living liaison. Sent medical information to her for review. Also spoke with [facility] Intake who states they can go the [facility] Will need script for physical and occupational therapy evals to go
to the [facility] with her. Medical work-up in progress. The discharge plan is to go to respite care at [facility] when medically stable.
[2025-01-12] MEDS: NEURONTIN 100 MG PO (20:12)
[2025-01-12] MEDS: LIPITOR 10 MG PO (20:12)
[2025-01-12] MEDS: ESTRACE 0.01% VAGINAL CREAM 1 APPLIC VAG (20:13)
[2025-01-13] VITALS (7 sets, daily range): BP systolic 129–169; BP diastolic 59–75; BMI 29.1
--- NOTE | 2025-01-13 00:54 | PTCARENOTE ---
Assumed care of the pt @ 1900. Pt is AAOx3 SR on the monitor denies dizziness. VSS Pt ambulates with rolling walker sb assist. POC discussed with pt. Call bailey within reach.
[2025-01-13] MEDS: COLACE 100 MG PO (08:34)
[2025-01-13] MEDS: VITAMIN D3 (cholecalciferol) 50 MCG PO (08:34)
[2025-01-13] MEDS: PEPCID 20 MG PO ×2 (08:34→20:30)
[2025-01-13] MEDS: LEXAPRO 10 MG PO (08:34)
[2025-01-13] MEDS: PLAVIX 75 MG PO (08:34)
[2025-01-13] MEDS: LOW STRENGTH ASPIRIN 81 MG PO (08:34)
[2025-01-13] MEDS: TOPROL XL 12.5 MG PO (08:34)
[2025-01-13] MEDS: ZESTRIL 10 MG PO (08:34)
--- NOTE | 2025-01-13 09:14 | W.PN.HOSP.TC ---
Today's Communication/Plan
-
dc
Assessment / Plan
Assessment / Plan
Physical Exam
General: No Apparent Distress, Comfortable. No Pain, Chills or Sweats
HEENT: Normocephalic, Moist mucous membranes, Atraumatic,
Respiratory: Clear
Cardiac: S1/S2
GI: Soft, Non Tender, Non Distended and Normal Bowel Sounds
Genito-urinary: No Kowalski.
Musculoskeletal: No Clubbing, No Cyanosis
Skin: Warm; No Rash, Jaundice
Neuro: Awake, Alert, Oriented, AO x 3, No Motor Deficits, Nonfocal/grossly intact and Cranial Nerves Intact
Psych: Calm
A/P
# Presented with nausea and weakness, shortness of breath
She denies chest pain or nausea although she admits to have chronic nausea
Reports weakness but no new issues.
Negative troponin.
Echo no changes, cardiology ok to discharge
Appreciate cardiology help
# History of Ambulatory dysfunction- c/w PT,OT.
# Essential HTN,
History of PEA arrest, NSTEMI vs Takotsubo cardiomyopathy with systolic dysfunction-
continue with Aspirin 81 mg daily, Plavix 75 mg daily, Lisinopril, Metoprolol XL 12.5 mg daily. Monitored BP, HR, avoid hypotension.
# Hyperlipidemia- continue Atorvastatin 10 mg daily.
# Chronic Anemia-
# Hx of Peripheral neuropathy- continue with Gabapentin 100 mg at HS. Monitor.
# chronic Hyponatremia, metabolic acidosis
# Chronic right neck sore throat/ discomfort/ GERD, hiatal hernia, GI prophylaxis- continue with Pepcid
I d/w Dr Hudson, reviewed CT study, recommended OP follow up. Pt requested script of Tramadol to use PRN.
# History of Atypical migraine- continue with Tylenol 650 mg Q 4 hr as needed.
# Osteopenia, Vitamin D def- continue with daily vitamin D supplement.
# Hearing loss- uses hearing aid.
# Thyroid nodule- OP PCP follow up.
# Anxiety-
She seems to have anxiety, started in OP setting on low dose Lexapro, I d/w pt and her son, agreed to try 10 mg.
Total discharge time spent to see the patient, examine the patient, review data and lab result, discuss discharge plan with patient, her son, ENT doctor, nursing staff around 67 minutes
Anticipated Discharge: Today
Subjective/Interval History
-
Date of Service: January 13, 2025
No chest pain
No sob
No abdominal pain
Objective Data
-
Vital Signs:
Vital Signs
Temp Pulse Resp BP Pulse Ox
98.4 F 66 16 142/75 97
01/13/25 07:45 01/13/25 08:34 01/12/25 22:26 01/13/25 08:34 01/13/25 07:45
I&O
01/12/25 01/13/25 01/14/25
06:59 06:59 06:59
Intake Total 240 / 240 720 / 720
Balance 240 / 240 720 / 720
[2025-01-13] MEDS: TYLENOL 650 MG PO (10:46)
--- NOTE | 2025-01-13 11:28 | PTCARENOTE ---
received patient this am, patient states that she is very weak, tired, doesn't know if she will be able to be discharged today. sat with patient and offered her emotional support. monitor shows NSR, VSS. case management reviewing patient as to if
she will be discharged to home vs [facility] in [place].
[2025-01-13] MEDS: MAALOX 30 ML PO (11:52)
--- NOTE | 2025-01-13 11:53 | PTCARENOTE ---
patient c/o abd. pain, nausea, Magalox po given as ordered.
--- NOTE | 2025-01-13 13:54 | PTCARENOTE ---
patient c/o feeling nauseated, TT Aniceto Quiñonez given as ordered.
[2025-01-13] MEDS: ZOFRAN 4 MG IV (13:57)
[2025-01-13] MEDS: FLUSH (NSS) 1 FLUSH IV (13:58)
--- NOTE | 2025-01-13 16:21 | PTCARENOTE ---
patient feels that she is too weak and continues to have LUQ pain and is unable to eat that it would be best if she stays another day. son is at bedside and agrees. I TT cross coverage hospitalist Dr. Varghese. patient and son also requested a CBC and
BMP drawn now, Dr. Varghese feels it is not an indication at this time.
--- NOTE | 2025-01-13 16:29 | CM ---
Reviewed chart. Met with Mrs Leiva and her son to review discharge plans. Reviewed she is ready for discharge today. Telephone call to the [facility] liaison to check on status of going there for respite. Mrs. Leiva has a
appointment with the [facility] tomorrow at 3:00 p.m. If they appointment goes well they can admit her on Saturday a.m at 9:00 a.m. She also has a follow-up appointment with ENT doctor tomorrow at 2:00 p.m. [facility] Intake states they can see
her her in the [facility]. She states she was not feeling well today. His son states he can stay with her at her house until she goes to the [facility] for respite care. Medical work-up in progress. The discharge plan is
to go home with her son staying with her then going to the [facility] for Respite care with [facility] Services when medically stable.
[2025-01-13] MEDS: LIPITOR 10 MG PO (18:03)
--- NOTE | 2025-01-13 18:08 | PTCARENOTE ---
report called to Kaylin CASEY , patient is going to room 426. patient is eating presently, will transfer once she has eaten, son is at bedside and aware of her transfer. personal belongings packed, hearing aid in left ear.
[2025-01-13] MEDS: COLACE PO (20:42)
[2025-01-13] MEDS: NEURONTIN 100 MG PO (22:16)
[2025-01-14] VITALS (8 sets, daily range): BP systolic 106–166; BP diastolic 59–75; PULSE 65; O2SAT 95; BMI 29.1
[2025-01-14] MEDS: COMPAZINE 5 MG IV (03:12)
[2025-01-14] MEDS: TYLENOL 650 MG PO (06:11)
[2025-01-14 08:11] LABS: Hematocrit 36.8 % (37.0-47.0); Hemoglobin 12.9 g/dL (12.0-16.0); Mean Corp Hgb Conc. 35.1 g/dL (33.0-37.0); Mean Corpuscular Volume 89.1 fL (81.0-99.0); Platelet Count 453 10^3/uL (130-400); Red Cell Dist. Width 12.8 % (11.5-14.5)
[2025-01-14 08:50] LABS: Blood Urea Nitrogen 6 mg/dl (7-17); Calcium 9.5 mg/dl (8.4-10.2); Carbon Dioxide 23 mmol/L (22-30); Chloride 99 mmol/L (98-107); Estimated Creatinine Clearance 66 ml/min; Glucose 110 mg/dl (70-99); Potassium 4.6 mmol/L (3.5-5.1); Sodium 129 mmol/L (135-145); eGFR > 60.00
[2025-01-14] MEDS: TOPROL XL 12.5 MG PO (09:09)
[2025-01-14] MEDS: COLACE 100 MG PO (09:09)
[2025-01-14] MEDS: NSS (PRESERVATIVE FREE) 10 ML IV (09:10)
[2025-01-14] MEDS: VITAMIN D3 (cholecalciferol) 50 MCG PO (09:10)
[2025-01-14] MEDS: LEXAPRO 10 MG PO (09:10)
[2025-01-14] MEDS: PEPCID 20 MG PO ×2 (09:10→20:41)
[2025-01-14] MEDS: PROTONIX IV 40 MG IV (09:10)
[2025-01-14] MEDS: ZESTRIL 10 MG PO (09:10)
[2025-01-14] MEDS: LOW STRENGTH ASPIRIN 81 MG PO (09:11)
--- NOTE | 2025-01-14 09:30 | W.PN.UPDATE ---
Update Note
Progress Note Update
Case reviewed with hospitalist attending, patient with persistent dyspepsia which she attributes to Plavix, Plavix was stopped this admission and symptoms improved. Symptoms have improved with Protonix as well. Could try to continue Plavix AM and
Protonix PM daily, but patient convinced Plavix is causing symptoms. Patient was a NSTEMI last admission in the setting of code after trigger point injection 11/27/24. Patient coming to the office next week and pending symptoms can try to restart
Plavix or consider switching to Brilinta.
--- NOTE | 2025-01-14 10:08 | W.PN.HOSP.TC ---
Addendum entered and electronically signed by Al Julio MD 01/14/25 11:59:
Addendum
Patient continues to have nausea.
Will ask GI for help
End
Original Note:
Today's Communication/Plan
-
dc if she feels ready, has acute on chronic nausea.
trial of PPI , holding Plavix
c/w Pepcid
Assessment / Plan
Assessment / Plan
Physical Exam
General: No Apparent Distress, Comfortable. No Pain, Chills or Sweats
HEENT: Normocephalic, Moist mucous membranes, Atraumatic,
Respiratory: Clear
Cardiac: S1/S2
GI: Soft, Non Tender, Non Distended and Normal Bowel Sounds
Genito-urinary: No Kowalski.
Musculoskeletal: No Clubbing, No Cyanosis
Skin: Warm; No Rash, Jaundice
Neuro: Awake, Alert, Oriented, AO x 3, No Motor Deficits, Nonfocal/grossly intact and Cranial Nerves Intact
Psych: Calm
A/P
# Persistent nausea and stomach pain
Seems acute on chronic issues
Patient has gastric discomfort and nausea which has been going on for a while per records, she was on PPI & Reglan in the past. EGD done in Sep, 2519. I discussed with the patient, she feels Plavix is probably causing the issue. She has been on
PPI but was stopped once she was placed on Plavix. Patient did not have cardiac angioplasty. She was given dual antiplatelet therapy after diagnosis of non-STEMI following anaphylaxis shock and cardiopulmonary arrest that happened during nerve
block procedure. I updated cardiology about holding Plavix for now.
Will do Pepcid & PPI for now
# Presented with nausea and weakness, shortness of breath
She denies chest pain or nausea although she admits to have chronic nausea
Reports weakness but no new issues.
Negative troponin.
Echo no changes, cardiology ok to discharge
Appreciate cardiology help
# History of Ambulatory dysfunction- c/w PT,OT.
# Essential HTN,
History of PEA arrest, NSTEMI vs Takotsubo cardiomyopathy with systolic dysfunction-
continue with Aspirin 81 mg daily, Plavix 75 mg daily, Lisinopril, Metoprolol XL 12.5 mg daily. Monitored BP, HR, avoid hypotension.
# Hyperlipidemia- continue Atorvastatin 10 mg daily.
# Chronic Anemia-
# Hx of Peripheral neuropathy- continue with Gabapentin 100 mg at HS. Monitor.
# chronic Hyponatremia, metabolic acidosis
# Chronic right neck sore throat/ discomfort/ GERD, hiatal hernia,
I d/w Dr Hudson, reviewed CT study, recommended OP follow up. Pt requested script of Tramadol to use PRN.
# History of Atypical migraine- continue with Tylenol 650 mg Q 4 hr as needed.
# Osteopenia, Vitamin D def- continue with daily vitamin D supplement.
# Hearing loss- uses hearing aid.
# Thyroid nodule- OP PCP follow up.
# Anxiety-
She seems to have anxiety, started in OP setting on low dose Lexapro, I d/w pt and her son, agreed to try 10 mg.
Total discharge time spent to see the patient, examine the patient, review data and lab result, discuss discharge plan with patient, her son, ENT doctor, nursing staff around 67 minutes
Anticipated Discharge: Today
Subjective/Interval History
-
Date of Service: January 14, 2025
No chest pain
Compalins of nausea, stomach pain ( I feel Plavix eating my stomach)
Objective Data
-
Labs:
Laboratory Results
01/14/25
07:43
WBC 7.6
Hgb 12.9
Hct 36.8 L
Plt Count 453 H
Sodium 129 L
Potassium 4.6
Chloride 99
Carbon Dioxide 23
BUN 6 L
Creatinine 0.5 L
Glucose 110 H
Calcium 9.5
Vital Signs:
Vital Signs
Temp Pulse Resp BP Pulse Ox
98.4 F 64 14 137/59 98
01/14/25 07:00 01/14/25 09:10 01/14/25 07:00 01/14/25 09:10 01/14/25 07:00
I&O
01/13/25 01/14/25 01/15/25
06:59 06:59 06:59
Intake Total 720 / 720
Balance 720 / 720
--- NOTE | 2025-01-14 11:42 | CM ---
Addendum entered by Bryson Sanz 01/14/25 14:28:
Spoke w/ Amanda/[facility] director, can accept patient tomorrow. Aware GI eval is pending and patient will need auth
Original Note:
Chart reviewed. Plan was for patient to d/c home w/ her son then respite care at [facility].
Nurse informed CM that patient isn't feeling well, c/o of nausea. Son at bedside requesting skilled rehab
PT seen bedside w/ patient and son, shared patient is not safe to d/c home and will recommend SNF
Son shared he spoke w/ Amanad/[facility] admissions and advised for CM to reach out. CM shared a referral will be completed
Need insurance auth
Updated hospitalist
Plan: SNF (prefers [facility])
[2025-01-14] MEDS: SODIUM CHLORIDE 1 GRAM PO (11:53)
--- NOTE | 2025-01-14 13:26 | CON.GI ---
Addendum entered and electronically signed by Any Aguilera Do, MD 01/14/25 15:22:
I saw and examined the patient.
The FOUNDRY WORKER's note was reviewed and I agree with the note.
Comment: Cornelia is an 79yo W wit h/o GERD, HTN and hyperlipidemia who was admitted with nausea, weakness and SOB. She of note was hospitalized in November 2024 after outpatient elective occipital nerve block that resulted in PEA arrest, CPR and
nonSTEMI. After that she was put on tramadol with increasing constipation and LLQ abd pain. There is worsening heartburn and indigestion. She denies dysphagia, vomiting or blood in stools. She straines and has difficulty evacuating. She uses
miralax and laxatives only PRN basis not daily. She denies blood in stools Vitals stable, exam chronically ill appearing W bloated, TTP in LUQ. Labs reviewed. Imaging CTAP small HH, diverticulosis, mild fecal burden. EGD 09/2024 gastritis.
Manometry pH testing not controlled on protonix.
Impression
- Chronic nausea and constipation
Worsen after CPR and pain meds started in November 2024
Suspect IBS-C
- Pelvic floor dysfunction with bladder prolapse
- GERD
- HTN
- Hyperlipidemia
- GERD
- Small hiatal hernia
- Vavular disease
- Recent PEA arrest
- OA
Recommendations
- PPI IV BID
- C/w diet
- Mag citrate 10oz now
- Recommend reassessment of pain tomorrow
- Miralax daily thereafter
- She is UTD with EGD/colon and can have close FU with Dr Mcgill
- Minimize opioid use
- If symptoms do not improve consider OP GES
Will follow with you
Original Note:
Consultation
-
Date/Time Consultation Requested: 01/14/25 1200
Date/Time Consultation Performed: 01/14/25 1320
Requesting Provider: Al Julio MD
Performing Provider: MONICA He, Any Swenson MD
Reason for Consultation: nausea
Medical History
Chief Complaint / HPI
History of Present Illness:
Pt is a 79yo with hx GERD, chronic nausea, HTN, hyperlipidemia, valvular disease, diverticulitis, osteopenia, , headaches, thyroid nodule, neuropathy, edema, UTI's, arthritis, hyponatremia with admission in November with headaches and nausea and noted
with occipital nerve block with post procedure unresponsiveness and PEA arrest requiring brief period of CPR and non STEMI . Echo with takotusubo vs coronary spasm. She now returns 01/10 with nausea, weakness, and shortness of breath. Per friend
in ER she has periods of episode of paleness, lightheadedness and shortness of breath. She also had complaints of chest and shoulder pain. Since admission she has been seen by cardiology with neg troponin and stable echo. Asked to see with
complaints of abdominal pain and GERD. She admits to chronic issue with these symptoms but feels she is worse. She admits to [facility] with GERD and follow also with ENT. She had recent manometry as noted with change in PPI therapy from
Pantoprazole to Omeprazole which she did not take much then Nexium with only a brief period of use. She was also to stay upright at least 3 hours after meals and admits to limited compliance with hospital admissions. Pt follow with Dr. Mcgill with
also complaint of chronic abdominal pain and rectal pressure.
Pt otherwise admits to issues with constipation with straining, urinary leakage with need to wean small pad with only 2 small stools in past 2 days. She has chronic abdominal pain that she feels is worse. She otherwise only admits to diarrhea
after clearing of constipation and denies rectal bleeding.
09/30/24- EGD walp No concerning findings but would proceed to pH testing- 4 cm hiatal hernia.
- Z-line irregular, 35 cm from the incisors. Biopsied- Tortuous esophagus.
- Bilious gastric fluid- Biopsies were taken with a cold forceps for Helicobacter pylori testing.
- Normal examined duodenum. Biopsied.
bx neg metaplasia neg H pylori
08/2022- walp colonoscopy No significant inflammation throughout the colon.
Nothing to explain the rectal pressure.
- Non-bleeding internal hemorrhoids.
- Diverticulosis in the left colon.
- The examined portion of the ileum was normal.
- No specimens collected.
11/24- manometry and PH tesing due to sore throat despite Pantoprazole 40mg and pecid 20mg. Extremely low LES pressure in upright position with normal esophageal peristalsis while supine and effective upright reflux to distal esophagus 5/10 swallows
-- PH study with significant acid exposure of she eats and reclines for acid suppression with Pantoprazole. was changed from Pantoprazole to Omprazole 40mg BID x 1 month then daily. do not lay flat for 3 hours after meal take omeprazole 30
minutes prior to meal.-- med then changed with adding Plavix to Nexium on 12/21.
01/10/25 Ct a/p without contrast
No evidence of bowel obstruction. Moderate sigmoid diverticulosis without acute diverticulitis. No acute inflammatory process within the abdomen or pelvis. Mild colonic fecal burden.
Small sliding hiatal hernia.
No obstructive uropathy.
Tiny hepatic cysts. Small right renal cyst.
Along the ventral margin of the lateral segment of the left lobe of the liver, there is a 7 mm low-attenuation structure not definitely seen previously. Too small to fully characterize. Possible additional cyst. Recommend follow-up in 6 months.
Stable right ovarian cyst, 1.7 cm.
Past Medical History
Past Medical History: Arrhythmias (PEA -cardiac arrest), Cancer (squamous cell removal), GERD, HTN, Hypercholesterolemia, Valvular Disease (mild MR, mod AI) and Other (diverticulitis, osteopenia, chronic nausea, headaches, thyroid nodule,
neuropathy, edema, UTI's, hyponatremia,arthritis )
Past Surgical History: Gynecological (D+C), Orthopedic (hip replacement ) and Other (cataract surgery, eye lid surgery )
Social History
Tobacco: Non-Smoker
Alcohol: None
Drug: None
Employment: Retired
Family History
Family History: Other (no family hx GI issues )
Allergies / Home Medications
Allergy/AdvReac Type Severity Reaction Status Date / Time
bupivacaine Allergy cardiac Verified 01/10/25 11:15
arrest
Cephalosporins Allergy Nausea Verified 01/10/25 11:15
methylprednisolone (From Allergy facial Verified 01/10/25 11:15
Medrol) flushing
nitrofurantoin (From Allergy Hives/WELTS Verified 01/10/25 11:15
Macrobid)
oxycodone Allergy made her Verified 01/10/25 11:15
feel
lightheaded
penicillin G Allergy Rash, Verified 01/10/25 11:15
itching,
syncope
Penicillins Allergy Rash, Verified 01/10/25 11:15
itching,
syncope
Sulfa (Sulfonamide Allergy Burning Verified 01/10/25 11:15
Antibiotics) sensation,
flushing
sulfamethoxazole (From Allergy Burning Verified 01/10/25 11:15
Bactrim) sensation,
flushing
trimethoprim (From Bactrim) Allergy Burning Verified 01/10/25 11:15
sensation,
flushing
�Medication �Instructions �Recorded
gabapentin 100 mg capsule 100 mg PO HS Neurological Condition 10/25/20
cholecalciferol (vitamin D3) 50 50 mcg PO DAILY Supplement 02/11/23
mcg (2,000 unit) tablet (Vitamin
D3)
aspirin 81 mg chewable tablet 81 mg PO DAILY Blood clot 12/01/24
prevention/tx #0 tabs
atorvastatin 10 mg tablet (Lipitor) 10 mg PO QPM High Cholesterol 12/04/24
calcium carbonate (Tums) 200 mg PO Q6HPRN PRN gerd 12/04/24
docusate sodium 100 mg capsule 100 mg PO DAILYPRN PRN constipation 12/04/24
(Colace)
estradiol 0.01% (0.1 mg/gram) 1 appful vaginal TUFR@199912/04/24
vaginal cream (Estrace) Hormonal Agent
clopidogrel 75 mg tablet 75 mg PO DAILY Heart 12/10/24
disease/condition 30 days #30 tabs
metoprolol succinate 25 mg 12.5 mg (1/2 x 25 mg) PO DAILY 12/10/24
tablet,extended release 24 hr Blood pressure 30 days #15 tabs
acetaminophen 500 mg tablet 1,000 mg PO DAILYPRN PRN mild pain 01/10/25
lisinopril 10 mg tablet 10 mg PO DAILY Blood Pressure 01/10/25
ondansetron HCl 8 mg tablet 8 mg PO Q8HPRN PRN nausea 01/10/25
polyethylene glycol 3350 17 gram 17 g PO DAILYPRN PRN constipation 01/10/25
oral powder packet
sennosides 8.6 mg tablet (senna) 8.6 mg PO DAILY PRN constipation 01/10/25
escitalopram oxalate 10 mg tablet 10 mg PO DAILY #30 tabs 01/13/25
famotidine 20 mg tablet 20 mg PO BID #60 tabs 01/13/25
tramadol 50 mg tablet 25 mg (1/2 x 50 mg) PO Q6HPRN PRN 01/13/25
moderate pain #14 tabs
Review of Systems
-
History Source: Patient and Family
Constitutional: Reports No Symptoms
EENT: Reports Sore Throat
Respiratory: Reports No Symptoms
Cardiac: Reports No Symptoms
Abdomen/GI: Reports Abdominal Pain, Nausea, Diarrhea (after constipation resolving ) and Constipated
: Reports Incontinence (small amount at times )
Musculoskeletal: Reports No Symptoms
Skin: Reports No Symptoms
Neurological: Reports Headache and Weakness
Endocrine: Reports No Symptoms
Hematologic/Lymphatic: Reports No Symptoms
Vital Signs
Temp Pulse Resp BP Pulse Ox
98.1 F 63 16 156/69 99
01/14/25 11:00 01/14/25 11:00 01/14/25 11:00 01/14/25 11:00 01/14/25 11:00
Physical Exam
Exam
General: Well Developed, Well Nourished and No Apparent Distress
HEENT: Normocephalic and Anicteric
Respiratory: Clear
Cardiac: Regular Rhythm
GI: Soft, Non Distended and Tender (minimal left upper abdomen )
Musculoskeletal: No Clubbing and No Cyanosis
Skin: Warm and Dry
Neuro: Awake, Alert and AO x 3
Psych: Calm
Results
WBC 7.6 10^3/uL (4.8-10.8) 01/14/25 07:43
Hgb 12.9 g/dL (12.0-16.0) 01/14/25 07:43
Hct 36.8 % (37.0-47.0) L 01/14/25 07:43
MCV 89.1 fL (81.0-99.0) 01/14/25 07:43
Plt Count 453 10^3/uL (130-400) H 01/14/25 07:43
Absolute Neuts (auto) 4.2 10^3/uL (1.4-6.5) 01/10/25 11:59
PT 16.0 Sec (11.4-14.6) H 01/10/25 11:59
INR 1.25 01/10/25 11:59
APTT 100.6 Sec (23.4-35.0) H 01/11/25 03:52
Sodium 129 mmol/L (135-145) L 01/14/25 07:43
Potassium 4.6 mmol/L (3.5-5.1) 01/14/25 07:43
Chloride 99 mmol/L (98-107) 01/14/25 07:43
Carbon Dioxide 23 mmol/L (22-30) 01/14/25 07:43
BUN 6 mg/dl (7-17) L 01/14/25 07:43
Creatinine 0.5 mg/dL (0.6-1.0) L 01/14/25 07:43
Calcium 9.5 mg/dl (8.4-10.2) 01/14/25 07:43
Total Bilirubin 0.6 mg/dl (0.2-1.3) 01/11/25 03:52
AST 19 U/L (14-36) 01/11/25 03:52
ALT 12 U/L (0-35) 01/11/25 03:52
Alkaline Phosphatase 68 U/L (38-126) 01/11/25 03:52
Diagnostic Image Results:
09/30/24- EGD walp No concerning findings but would proceed to pH testing- 4 cm hiatal hernia.
- Z-line irregular, 35 cm from the incisors. Biopsied- Tortuous esophagus.
- Bilious gastric fluid- Biopsies were taken with a cold forceps for Helicobacter pylori testing.
- Normal examined duodenum. Biopsied.
bx neg metaplasia neg H pylori
08/2022- walp colonoscopy No significant inflammation throughout the colon.
Nothing to explain the rectal pressure.
- Non-bleeding internal hemorrhoids.
- Diverticulosis in the left colon.
- The examined portion of the ileum was normal.
- No specimens collected.
11/24- manometry and PH tesing due to sore throat despite Pantoprazole 40mg and pecid 20mg. Extremely low LES pressure in upright position with normal esophageal peristalsis while supine and effective upright reflux to distal esophagus 5/10 swallows
-- PH study with significant acid exposure of she eats and reclines for acid suppression with Pantoprazole. was changed from Pantoprazole to Omprazole 40mg BID x 1 month then daily. do not lay flat for 3 hours after meal take omeprazole 30
minutes prior to meal.-- med then changed with adding Plavix to Nexium on 12/21.
01/10/25 Ct a/p without contrast
No evidence of bowel obstruction. Moderate sigmoid diverticulosis without acute diverticulitis. No acute inflammatory process within the abdomen or pelvis. Mild colonic fecal burden.
Small sliding hiatal hernia.
No obstructive uropathy.
Tiny hepatic cysts. Small right renal cyst.
Along the ventral margin of the lateral segment of the left lobe of the liver, there is a 7 mm low-attenuation structure not definitely seen previously. Too small to fully characterize. Possible additional cyst. Recommend follow-up in 6 months.
Stable right ovarian cyst, 1.7 cm.
01/12 CT Neck With Iv Contrast
1. Mild enlargement of the posterior nasopharyngeal soft tissues which has increased since 01/21/2023. Diagnostic possibilities are (1) adenoid tonsillar hypertrophy or (2) nasopharyngeal carcinoma.
2. 9 mm nodule in the right lobe of the thyroid gland which has increased in size since 01/21/2023.
3. Severe discogenic degenerative disease at C5/C6 and C6/C7.
Assessment / Plan
-
Pt is a 79yo with hx GERD, chronic nausea, HTN, hyperlipidemia, valvular disease, diverticulitis, osteopenia, headaches, thyroid nodule, neuropathy, edema, UTI's, arthritis, hyponatremia with admission in November with headaches and nausea and noted
with occipital nerve block with post procedure unresponsiveness and PEA arrest requiring brief period of CPR and non STEMI . Echo with takotusubo vs coronary spasm. She now returns 01/10 with nausea, weakness, and shortness of breath. Per friend
in ER she has periods of episode of paleness, lightheadedness and shortness of breath. She also had complaints of chest and shoulder pain. Since admission she has been seen by cardiology with neg troponin and stable echo. Asked to see with
complaints of abdominal pain and GERD. She admits to chronic issue with these symptoms but feels she is worse. She admits to [facility] with GERD and follow also with ENT. She had recent manometry as noted with change in PPI therapy from
Pantoprazole to Omeprazole which she did not take much then Nexium with only a brief period of use. She was also to stay upright at least 3 hours after meals and admits to limited compliance with hospital admissions. Pt follow with Dr. Mcgill with
also complaint of chronic abdominal pain and rectal pressure.
09/30/24- EGD mitul No concerning findings but would proceed to pH testing- 4 cm hiatal hernia. tort esophagus, bile gastric fluid, normal duodenum bx neg
11/24- manometry and PH tesing due to sore throat despite Pantoprazole 40mg and pecid 20mg. Extremely low LES pressure in upright position with normal esophageal peristalsis while supine and effective upright reflux to distal esophagus 5/10 swallows
-- PH study with significant acid exposure of she eats and reclines for acid suppression with Pantoprazole. was changed from Pantoprazole to Omprazole 40mg BID x 1 month then daily. do not lay flat for 3 hours after meal take omeprazole 30
minutes prior to meal.-- med then changed with adding Plavix to Nexium on 12/21.
01/10/25 Ct a/p without contrast
No evidence of bowel obstruction. diverticulosis, midl colonic fecal burden , small HH, liver 7 mm structure stable ovarian cyst
-nausea
-left upper abdominal pain-chronic
-GERD/HH with recent adjustment of medication with abnormal manometry
-shortness of breath on admission
-History of PEA arrest, NSTEMI vs Takotsubo cardiomyopathy with systolic dysfunction on Plavix therapy
-small liver lesion per imaging
-sore throat
other med problems:
HTN, hyperlipidemia, valvular disease, diverticulitis, osteopenia, headaches, thyroid nodule, neuropathy, edema, UTI's, arthritis, hyponatremia
PLAN:
etiology of abdominal pain with nausea with concern for underlying constipation with some stool burden on imaging vs other
will give mag citrate-- I reviewed with pharmacy as noted ? interaction but no interaction per ramandeepicomp and ok to proceed
add miralax daily tomorrow
pt also with chronic GERD-- reviewed recent EGD and manometry testing
cont Protonix inpatient then Nexium outpatient-- will need to take a few week to determine if effective
current Pepcid BID would continue daily at HS on discharge then stop after 2 weeks
OP follow up due to jan 27. Reviewed with son pending health status may need to request telehealth if feels unable to get to office
consider repeat CT for follow up liver lesion noted on CT
reviewed with Dr. Swenson and son at bedside
from GI standpoint ok to resume Plavix if needed
-
-
Thank you for consultation and allowing me to participate in the patient's care. Please call the vocational adviser GI physician during the after hours with any questions or concerns.
[2025-01-14] MEDS: CITROMA 300 ML PO (15:28)
[2025-01-14 17:02] LABS: Glucose - Point of Care 105 mg/dl (70-99)
--- NOTE | 2025-01-14 17:50 | FALL ---
Description of Fall:
Patient fell due to syncopal episode status post consumption of mag citrate. Upon completion of mag citrate, patient complaining of nausea, abdominal pressure, and gas accompanied by feeling lightheaded/dizzy. Patient insistent on getting to commode
due to feeling like she needed to have a bowel movement. Patient assisted to commode by RN and PCT. RN left room to perform other patient care, PCT remained with patient. Per PCT, patient quickly attempted to independently stand and from there lost
consciousness. PCT assisted patient to ground. Patient unresponsive for 20-30 seconds but with a carotid pulse. LANE ATTENDANT called by RN due to patient's previous history of PEA, back in November 2024. Patient came to. Vital signs stable yet, BP elevated.
169/83, HR 76, RR 12, Pulse ox 96%. NSR-Sinus Tach on telemetry. Once patient verbalized her ability to transfer from ground to bed, patient was assisted by multiple staff members to bed. Status post placement back into bed, patient put out 500 ml
of emesis. Hospitalist and GI physicians notified. EKG ordered. Patient in bed with bed alarm on. Call bailey and personal belongings within reach.
Injuries Noted:
No injuries noted
Action Taken:
Hospitalist and GI physician notified. EKG ordered. Telemetry continued.
Name of Provider Notified:
Nori
Any Swenson
[2025-01-14] MEDS: LIPITOR PO (17:58)
[2025-01-14] MEDS: COLACE PO (20:43)
[2025-01-14] MEDS: ESTRACE 0.01% VAGINAL CREAM VAG (20:50)
[2025-01-14] MEDS: NEURONTIN 100 MG PO (22:33)
[2025-01-15 03:00] VITALS: BP 152/73
[2025-01-15 05:36] VITALS: BMI 28.6
[2025-01-15 07:00] VITALS: BP 149/85
[2025-01-15] MEDS: COLACE PO (07:07)
[2025-01-15] MEDS: TOPROL XL 12.5 MG PO (08:52)
[2025-01-15] MEDS: LEXAPRO 10 MG PO (08:52)
[2025-01-15] MEDS: PEPCID 20 MG PO (08:52)
[2025-01-15] MEDS: ZESTRIL 10 MG PO (08:52)
[2025-01-15] MEDS: LOW STRENGTH ASPIRIN 81 MG PO (08:52)
[2025-01-15] MEDS: VITAMIN D3 (cholecalciferol) 50 MCG PO (08:52)
[2025-01-15] MEDS: NSS (PRESERVATIVE FREE) 10 ML IV (08:53)
[2025-01-15] MEDS: PROTONIX IV 40 MG IV (08:53)
--- NOTE | 2025-01-15 09:20 | W.PN.HOSP.TC ---
Today's Communication/Plan
-
Discharge
She refused laxatives after loose BM
c/w PPI and Pepcid upon discharge
Assessment / Plan
Assessment / Plan
Physical Exam
General: No Apparent Distress, Comfortable. No Pain, Chills or Sweats
HEENT: Normocephalic, Moist mucous membranes, Atraumatic,
Respiratory: Clear
Cardiac: S1/S2
GI: Soft, Non Tender, Non Distended and Normal Bowel Sounds
Genito-urinary: No Kowalski.
Musculoskeletal: No Clubbing, No Cyanosis
Skin: Warm; No Rash, Jaundice
Neuro: Awake, Alert, Oriented, AO x 3, No Motor Deficits, Nonfocal/grossly intact and Cranial Nerves Intact
Psych: Calm
A/P
# Persistent nausea and stomach pain
Seems acute on chronic issues
Patient has gastric discomfort and nausea . Seen by GI, given Mg citrate for constipation, PPI to BID dose with Pepcid .
I discussed with the patient, she feels Plavix is probably causing the issue. She has been on PPI but was stopped once she was placed on Plavix. Patient did not have cardiac angioplasty but diagnosed with NSTEMI after an anaphylaxis event
during nerve block procedure. I updated cardiology about holding Plavix for now.
Will do Pepcid & PPI for now
# Presented with nausea and weakness, shortness of breath
She denies chest pain or nausea although she admits to have chronic nausea
Reports weakness but no new issues.
Negative troponin.
Echo no changes, cardiology ok to discharge
Appreciate cardiology help
# Vasovagal episode 01/14/25.
It happened while she was on the commode, she felt faint.
She had normal tele and vital signs
No chest pain
# History of Ambulatory dysfunction- c/w PT,OT. Recommend SNF.
# Essential HTN,
History of PEA arrest, NSTEMI vs Takotsubo cardiomyopathy with systolic dysfunction-
continue with Aspirin 81 mg daily, Lisinopril, Metoprolol XL 12.5 mg daily. Monitored BP, HR, avoid hypotension.
# Hyperlipidemia- continue Atorvastatin 10 mg daily.
# Chronic Anemia-
# Hx of Peripheral neuropathy- continue with Gabapentin 100 mg at HS. Monitor.
# chronic Hyponatremia, metabolic acidosis
# Chronic right neck sore throat/ discomfort/ GERD, hiatal hernia,
I d/w Dr Hudson, reviewed CT study, recommended OP follow up. Pt requested script of Tramadol to use PRN.
# History of Atypical migraine- continue with Tylenol 650 mg Q 4 hr as needed.
# Osteopenia, Vitamin D def- continue with daily vitamin D supplement.
# Hearing loss- uses hearing aid.
# Thyroid nodule- OP PCP follow up.
# Anxiety-
She seems to have anxiety, started in OP setting on low dose Lexapro, I d/w pt and her son, agreed to try 10 mg.
Total discharge time spent to see the patient, examine the patient, review data and lab result, discuss discharge plan with patient, her son, gearcase assembler, nursing staff around 67 minutes
Anticipated Discharge: Today
Subjective/Interval History
-
Date of Service: January 15, 2025
less pain and less nausea
Objective Data
-
Vital Signs:
Vital Signs
Temp Pulse Resp BP Pulse Ox
97.7 F 96 17 149/85 97
01/15/25 07:00 01/15/25 08:52 01/15/25 07:00 01/15/25 08:52 01/15/25 07:00
I&O
01/14/25 01/15/25 01/16/25
06:59 06:59 06:59
Intake Total 320 / 320
Balance 320 / 320
[2025-01-15 11:11] VITALS: BP 133/65
--- NOTE | 2025-01-15 11:13 | W.PN.GI.CBS2 ---
Today's Communication / Plan
-
Had likely vasovagal event related to stool output from mg citrate
Use miralax daily now as bowel regimen
Abd pain may be related to constipation. CT, EGD, colonoscopy negative
Cont diet
Has f/u appt with Dr Mcgill 01/27. Getting transfer to rehab today
Will sign off. Please call back if needed
Assessment / Plan
-
Pt is a 79yo with hx GERD, chronic nausea, HTN, hyperlipidemia, valvular disease, diverticulitis, osteopenia, headaches, thyroid nodule, neuropathy, edema, UTI's, arthritis, hyponatremia with admission in November with headaches and nausea and noted
with occipital nerve block with post procedure unresponsiveness and PEA arrest requiring brief period of CPR and non STEMI . Echo with takotusubo vs coronary spasm. She now returns 01/10 with nausea, weakness, and shortness of breath. Per friend
in ER she has periods of episode of paleness, lightheadedness and shortness of breath. She also had complaints of chest and shoulder pain. Since admission she has been seen by cardiology with neg troponin and stable echo. Asked to see with
complaints of abdominal pain and GERD. She admits to chronic issue with these symptoms but feels she is worse. She admits to [facility] with GERD and follow also with ENT. She had recent manometry as noted with change in PPI therapy from
Pantoprazole to Omeprazole which she did not take much then Nexium with only a brief period of use. She was also to stay upright at least 3 hours after meals and admits to limited compliance with hospital admissions. Pt follow with Dr. Mcgill with
also complaint of chronic abdominal pain and rectal pressure.
09/30/24- EGD mitul No concerning findings but would proceed to pH testing- 4 cm hiatal hernia. tort esophagus, bile gastric fluid, normal duodenum bx neg
11/24- manometry and PH tesing due to sore throat despite Pantoprazole 40mg and pecid 20mg. Extremely low LES pressure in upright position with normal esophageal peristalsis while supine and effective upright reflux to distal esophagus 5/10 swallows
-- PH study with significant acid exposure of she eats and reclines for acid suppression with Pantoprazole. was changed from Pantoprazole to Omprazole 40mg BID x 1 month then daily. do not lay flat for 3 hours after meal take omeprazole 30
minutes prior to meal.-- med then changed with adding Plavix to Nexium on 12/21.
01/10/25 Ct a/p without contrast
No evidence of bowel obstruction. diverticulosis, midl colonic fecal burden , small HH, liver 7 mm structure stable ovarian cyst
-nausea
-left upper abdominal pain-chronic
-GERD/HH with recent adjustment of medication with abnormal manometry
-shortness of breath on admission
-History of PEA arrest, NSTEMI vs Takotsubo cardiomyopathy with systolic dysfunction on Plavix therapy
-small liver lesion per imaging
-sore throat
other med problems:
HTN, hyperlipidemia, valvular disease, diverticulitis, osteopenia, headaches, thyroid nodule, neuropathy, edema, UTI's, arthritis, hyponatremia
Subjective
Subjective
Date of Service: January 15, 2025
Pt took mg citrate and had n/v, syncope overnight followed by diarrhea. She reports hx vasovagal syncope. C/O LUQ pain
Objective
Data Reviewed
Laboratory Data:
Laboratory Results
01/14/25 07:43
01/14/25 07:43
Laboratory Results
PT 16.0 Sec (11.4-14.6) H 01/10/25 11:59
INR 1.25 01/10/25 11:59
APTT 100.6 Sec (23.4-35.0) H 01/11/25 03:52
Magnesium 2.0 mg/dl (1.6-2.3) 01/11/25 03:52
Total Bilirubin 0.6 mg/dl (0.2-1.3) 01/11/25 03:52
AST 19 U/L (14-36) 01/11/25 03:52
ALT 12 U/L (0-35) 01/11/25 03:52
Alkaline Phosphatase 68 U/L (38-126) 01/11/25 03:52
Vital Signs and I&O:
Vital Signs
Temp Pulse Resp BP Pulse Ox
97.7 F 80 17 133/65 97
01/15/25 11:11 01/15/25 11:11 01/15/25 11:11 01/15/25 11:11 01/15/25 11:11
I&O
01/14/25 01/15/25 01/16/25
06:59 06:59 06:59
Intake Total 320 / 320
Balance 320 / 320
Physical Exam
Physical Exam
GI: Soft, Non Distended and Non Tender
--- NOTE | 2025-01-15 12:07 | CM ---
Addendum entered by Bryson Sanz 01/15/25 15:25:
Received call from Bety. Auth approved beginning today, 01/15 next review date is 01/21
Reference # [id number]
Updated patient and son bedside
IMM verbally reviewed, copy provided, copy on chart
Original Note:
Per hospitalist, patient remains stable for d/c
CM called [employer] to initiate auth, spoke w/ Bety. Per Bety, medical program specialist will need to review as patient walked 50 feet
Pending auth ref # [id number]
Updated sonFrancisco J. Son can transport
[facility]
Report: [phone]

Plan: [facility]; pending auth determination
[2025-01-15 15:00] VITALS: BP 128/62
[2025-01-15] MEDS: SODIUM CHLORIDE 1 GRAM PO (16:11)
--- NOTE | 2025-01-15 16:37 | PTCARENOTE ---
Report called to Orlin Resendiz, son at bedside and given paperwork. Patient assisted to and taken down with PCT. Son to drive patient to [place]. IV removed, VSS.
--- NOTE | 2025-01-16 13:48 | W.DCSUMMARY ---
Discharge Summary
Discharge Data
Date of Admission: 01/10/25
Date of Discharge: 01/15/25
-
Pending Results: No
Hospital Course
79 years old female who was admitted with nausea, dizziness, aches, weakness and shortness of breath. She was hospitalized in November 2024 after outpatient elective occipital nerve block that resulted in PEA arrest, CPR and non-STEMI. Patient was
evaluated by rn social services. She did not have acute ischemic changes on EKG or positive troponin. Pastry Supervisor recommended outpatient follow-up. Patient reported acute on chronic nausea. She also complained of right discomfort in her neck. She had
CT of the neck and that was reviewed by ENT specialist. She was evaluated by Dr. Hudson recommended outpatient follow-up. Patient continued to have nausea and abdominal discomfort. She was evaluated by waste treatment operator. She received laxative
treatment and recommended to continue Protonix therapy. Patient felt that Plavix was causing her GI problems. Plavix was held and cardiology service was updated. Patient felt anxious, discussed the option to increase her Lexapro. Patient and son
agreed to titrate slowly Lexapro to better control her anxiety. Patient was noted to have generalized weakness. Physical therapy followed the patient and recommended correction facility. Patient remained hemodynamically stable was discharged
to SNF in a stable condition.
Discharge Plan
-
Patient Disposition: [facility]/SNF
Discharge Diagnosis/Procedures: Weakness
Right neck pain
Nausea
Muscle pain
Hypertension
Peripheral neuropathy
Migraine
Cardiopulmonary arrest/PEA 11/27/24, Unclear etiology, potentially neurologically mediated
Chronic Hyponatremia
Moderate MR
Anxiety
We increased dose of Lexapro from 5 mg to 10 mg.
You were evaluated by rn social services. Cardiac status remained stable, continue on your current medications, holding Plavis due to GI problems.
You were evaluated by ENT doctor, recommend outpatient follow-up.
Evaluated by GI, c/w PPI & Pepecid.
Condition: Good
Diet: As tolerated
Others Tests: consider repeat CT in 6months with small liver lesion noted on CT
Referrals:
[facility] [Other] - 01/14/25 3:00 pm
Referral Note: Appointment for interview for Respite Care.
[facility] [Outside]
Bailey Salmeron MD [Active, Internal Medicine] - 01/18/25 3:00 pm
Addison Soria MD [Active, Cardiology] - 01/20/25 2:40 pm
Referral Note: You are scheduled to see Dr. Soria's physician esl instructional assistant, Susie, in the [facility] office on 01/20/25 at 2:40 PM. Please call [phone] if you need to reschedule.
UNKNOWN - PT NOT,INTERVIEWE [Family Provider]
Rosa Isela Mcgill DO [Active, Gastroenterology] - 01/27/25
Referral Note: follow up with Dr. mcgill as scheduled
Tamica Hudson MD [Active, Otology] - 01/14/25 2:00 pm
Prescriptions:
New
famotidine 20 mg Tablet
20 mg PO BID Qty: 60 0RF
escitalopram oxalate 10 mg Tablet
10 mg PO DAILY Qty: 30 0RF
pantoprazole [Protonix] 40 mg tablet,delayed release (DR/EC)
40 mg PO BID Qty: 30 0RF
sodium chloride 1,000 mg Tablet,Soluble
1,000 mg PO BID Qty: 10 0RF
Continued
gabapentin 100 MG capsule
100 mg PO HS
cholecalciferol (vitamin D3) [Vitamin D3] 50 mcg (2,000 unit) Tablet
50 mcg PO DAILY
aspirin 81 mg Tablet,Chewable
81 mg PO DAILY Qty: 0 0RF
atorvastatin [Lipitor] 10 mg Tablet
10 mg PO QPM
calcium carbonate [Tums] 200 mg calcium (500 mg) Tablet,Chewable
200 mg PO Q6HPRN PRN (Reason: gerd)
docusate sodium [Colace] 100 mg Capsule
100 mg PO DAILYPRN PRN (Reason: constipation)
estradiol [Estrace] 0.01 % (0.1 mg/gram) Cream
1 appful VAGINAL TUFR@1999
sennosides [senna] 8.6 mg Tablet
8.6 mg PO DAILY PRN (Reason: constipation)
polyethylene glycol 3350 17 gram Powder In Packet
17 g PO DAILYPRN PRN (Reason: constipation)
ondansetron HCl 8 mg tablet
8 mg PO Q8HPRN PRN (Reason: nausea)
acetaminophen 500 mg Tablet
1,000 mg PO DAILYPRN PRN (Reason: mild pain)
lisinopril 10 mg tablet
10 mg PO DAILY
metoprolol succinate 25 mg Tablet Extended Release 24 Hr
12.5 mg PO DAILY 30 Days Qty: 15 0RF
Discontinued
esomeprazole magnesium 40 mg capsule,delayed release(DR/EC)
40 mg PO DAILY
escitalopram oxalate 5 mg tablet
5 mg PO DAILY
tramadol 50 mg Tablet
25 mg PO Q6HPRN PRN (Reason: moderate pain) 5 Days Qty: 20 0RF
clopidogrel 75 mg Tablet
75 mg PO DAILY 30 Days Qty: 30 0RF
Discharge Orders:
Discharge Patient (As Directed); Ordered 01/15/25
Ordered By: Al Julio
Care Plan Goals
Care Plan Goals:
Problem: Readiness for enhanced knowledge related to diagnosis and treatment plan
Goal: Understand your diagnosis and treatment plan needs, including medications if applicable.
Instructions: Know your diagnosis, underlying causes and treatment plan options, including medications if applicable. Consult with your health care team to learn about your diagnosis and treatment plan, including medications if applicable.
Discharge Date and Time
Discharge Date/Time: 01/15/25 16:40
Print Language: YI
== END 2025-01-15 16:40 | DRG 311 ==
LOC: 4 WEST ACU 16:01
PROVIDERS: ADMITTING PHYSICIAN General Practice; ATTENDING PHYSICIAN Internal Medicine; CONSULT PHYSICIAN Internal Medicine Gastroenterology; CONSULT PHYSICIAN Internal Medicine Interventional Cardiology; CONSULT PHYSICIAN Otolaryngology; EMERGENCY PHYSICIAN Emergency Medicine
DX: I24.9 Acute ischemic heart disease, unspecified (principal); E87.1 Hypo-osmolality and hyponatremia; M19.90 Unspecified osteoarthritis, unspecified site; E66.9 Obesity, unspecified; E78.5 Hyperlipidemia, unspecified; K21.9 Gastro-esophageal reflux disease without esophagitis; I10 Essential (primary) hypertension; G62.9 Polyneuropathy, unspecified; G43.909 Migraine, unspecified, not intractable, without status migrainosus; F41.9 Anxiety disorder, unspecified; K59.00 Constipation, unspecified; Z87.891 Personal history of nicotine dependence; Z88.1 Allergy status to other antibiotic agents; Z88.5 Allergy status to narcotic agent; Z88.0 Allergy status to penicillin; Z88.2 Allergy status to sulfonamides; I25.2 Old myocardial infarction; M85.80 Other specified disorders of bone density and structure, unspecified site; H91.90 Unspecified hearing loss, unspecified ear; E78.00 Pure hypercholesterolemia, unspecified; G89.29 Other chronic pain; K44.9 Diaphragmatic hernia without obstruction or gangrene; K76.9 Liver disease, unspecified; N28.1 Cyst of kidney, acquired; Z79.899 Other long term (current) drug therapy; Z79.82 Long term (current) use of aspirin; Z79.02 Long term (current) use of antithrombotics/antiplatelets; N83.201 Unspecified ovarian cyst, right side
CPT/HCPCS: 70491; 71046; 74176; 80048; 80053; 81003; 81015; 82962; 83735; 83880; 84484; 85025; 85027; 85610; 85730; 87086; 93005; 93308; 93321; 93325; 96374; 96375; 97116; 97162; 97166; 97530; 97535; 99291; Q9967

== ENCOUNTER → 2025-01-17 15:59 | Outpatient (REF) | payer OTHER, SELFPAY ==
[2025-01-17 18:19] LABS: Urine Character Cloudy (Clear)
[2025-01-17 19:05] LABS: Urine Red Blood Cell 30-40 /HPF (0-2); Urine White Cell 26-30 /HPF (0-5)
== END ==
LOC: OLAB 15:59
PROVIDERS: ATTENDING PHYSICIAN Nurse Practitioner Adult Health
DX: N39.0 Urinary tract infection, site not specified (principal)
CPT/HCPCS: 81003; 81015; 87077; 87086; 87186

== ENCOUNTER → 2025-01-19 09:47 | Outpatient (REF) | payer OTHER, SELFPAY ==
[2025-01-19 11:00] LABS: Blood Urea Nitrogen 12 mg/dl (7-17); Calcium 9.4 mg/dl (8.4-10.2); Carbon Dioxide 25 mmol/L (22-30); Chloride 101 mmol/L (98-107); Glucose 88 mg/dl (70-99); Potassium 5.0 mmol/L (3.5-5.1); Sodium 132 mmol/L (135-145); eGFR > 60.00
[2025-01-19 11:16] LABS: Hematocrit 34.8 % (37.0-47.0); Hemoglobin 11.9 g/dL (12.0-16.0); Mean Corp Hgb Conc. 34.2 g/dL (33.0-37.0); Mean Corpuscular Volume 90.2 fL (81.0-99.0); Platelet Count 471 10^3/uL (130-400); Red Cell Dist. Width 13.3 % (11.5-14.5)
== END ==
LOC: OLABP 09:47
PROVIDERS: ATTENDING PHYSICIAN Family Medicine
DX: N39.0 Urinary tract infection, site not specified (principal)
CPT/HCPCS: 36415; 80048; 85027

== ENCOUNTER → 2025-01-22 11:28 | Outpatient (REF) | payer OTHER, SELFPAY ==
[2025-01-22 12:25] LABS: Hematocrit 34.7 % (37.0-47.0); Hemoglobin 11.6 g/dL (12.0-16.0); Mean Corp Hgb Conc. 33.4 g/dL (33.0-37.0); Mean Corpuscular Volume 91.3 fL (81.0-99.0); Nucleated Red Blood Cells % 0 %; Platelet Count 438 10^3/uL (130-400); Red Cell Dist. Width 13.5 % (11.5-14.5)
[2025-01-22 12:40] LABS: Blood Urea Nitrogen 10 mg/dl (7-17); Calcium 9.4 mg/dl (8.4-10.2); Carbon Dioxide 25 mmol/L (22-30); Chloride 104 mmol/L (98-107); Glucose 90 mg/dl (70-99); Potassium 4.7 mmol/L (3.5-5.1); Sodium 134 mmol/L (135-145); eGFR > 60.00
== END ==
LOC: OLABP 11:28
PROVIDERS: ATTENDING PHYSICIAN Family Medicine
DX: M62.59 Muscle wasting and atrophy, not elsewhere classified, multiple sites (principal); M54.2 Cervicalgia; R11.0 Nausea; I10 Essential (primary) hypertension; G62.9 Polyneuropathy, unspecified; E87.1 Hypo-osmolality and hyponatremia; F41.9 Anxiety disorder, unspecified; I46.9 Cardiac arrest, cause unspecified; G43.909 Migraine, unspecified, not intractable, without status migrainosus
CPT/HCPCS: 36415; 80048; 85025